=== PATIENT | male | born 1945 ===

== ENCOUNTER 2016-12-14 08:52 | Inpatient (IN) | payer MEDICARE ==
[2016-12-14] MEDS ORDERED: Morphine 4 MG/ML VIAL ONE ×2 (08:58→09:11)
[2016-12-14 09:02] VITALS: BMI 24.9
[2016-12-14] MEDS ORDERED: Iohexol 350mgl/ml 50 ML ONE (09:05)
[2016-12-14] MEDS ORDERED: Iodixanol 320 MG/ML 100 ML BOTTLE IV ONE ×3 (09:06→09:55)
[2016-12-14] MEDS ORDERED: Phenylephrine 10 mg/ml Inj ONE (09:07)
[2016-12-14] MEDS ORDERED: DOPamine 400mg/250ml D5W 0 MG/0 ML BAG IV ONE (09:07)
[2016-12-14] MEDS ORDERED: Nitroglycerin 50mg in D5W 0 MG/0 ML BOTTLE IV ONE (09:07)
--- NOTE | 2016-12-14 09:13 | C.PDOC ---
History Of Present Illness Patient BIBA for sudden onset of substernal chest pain that began at approx 8am. Patient given SL nitro, ASA 324mg in the field. As per prior records, he has h/o Vitiligo and hyperlipidemia. Time Seen by Provider: 12/14/16 09:11 Chief Complaint (Nursing): Chest Pain History Per: Patient, EMS History/Exam Limitations: clinical condition Onset/Duration Of Symptoms: Hrs Current Symptoms Are (Timing): Still Present Severity: Severe Quality: "Pain" Associated Symptoms: Nausea Past Medical History Reviewed: Historical Data, Nursing Documentation, Vital Signs Vital Signs: Last Vital Signs Temp 97.4 F L 12/14/16 08:55 Pulse 84 12/14/16 08:55 Resp 24 12/14/16 08:55 BP 142/88 12/14/16 08:55 Pulse Ox 99 12/14/16 09:13 - Medical History PMH: Hypercholesterolemia Family History: States: Other Other Family History: noncontributory - Social History Hx Alcohol Use: No Hx Substance Use: No - Immunization History Hx Tetanus Toxoid Vaccination: No Hx Influenza Vaccination: No Hx Pneumococcal Vaccination: No Review Of Systems Except As Marked, All Systems Reviewed And Found Negative. Cardiovascular: Positive for: Chest Pain. Negative for: Palpitations Respiratory: Negative for: Shortness of Breath Gastrointestinal: Positive for: Nausea. Negative for: Vomiting, Abdominal Pain Physical Exam - Physical Exam Appears: Non-toxic, In Acute Distress (in moderate to severe pain) Skin: Other (vitiligo ) Oral Mucosa: Moist Cardiovascular: Rhythm Regular Respiratory: Normal Breath Sounds, No Rales, No Rhonchi, No Wheezing Gastrointestinal/Abdominal: Normal Exam, Bowel Sounds, Soft, No Tenderness Extremity: Normal ROM, No Pedal Edema, No Calf Tenderness Pulses: Left Dorsalis Pedis: Normal, Right Dorsalis Pedis: Normal Neurological/Psych: Oriented x3 ED Course And Treatment ECG: Interpreted By Me, Viewed By Me (sinus rhythm 86 bpm, normal axis, ST elevations V2, V3, V4, reciprocal changes II, III, aVF) ECG Interpretation: Abnormal O2 Sat by Pulse Oximetry: 99 (RA) Pulse Ox Interpretation: Normal Progress Note: Code heart called on ED arrival, spoke with Dr. Willson who is in agreement. IV heparin 5000 units and Brilinta 180 mg given. Disposition - Disposition Disposition Time: 09:12 Condition: GUARDED - Clinical Impression Clinical Impression: STEMI (ST elevation myocardial infarction) Decision To Admit - Pt Status Changed To: Hospital Disposition Of: Inpatient - Admit Certification Admit to Inpatient:: After my assessment, the patient will require hospitalization for at least two midnights. This is because of the severity of symptoms shown, intensity of services needed, and/or the medical risk in this patient being treated as an outpatient. - InPatient: Physician Admission Certification: I certify that this patient requires 2 or more midnights of care for the following reason:: see notes - . Bed Request Type: ICU Admitting Physician: Gustavo Willson Patient Diagnosis: STEMI (ST elevation myocardial infarction)
[2016-12-14] MEDS ORDERED: Midazolam 2 MG/2 ML VIAL ONE (09:17)
[2016-12-14 09:20] LABS: BASO # 0.1 K/uL (0.0-0.2); BASO % 0.7 % (0.0-2.0); EOS # 0.5 K/uL (0.0-0.7); HEMATOCRIT 37.5 % (35.0-51.0); LYMPH % 25.8 % (20.0-40.0); MEAN CELL VOLUME 96.2 fL (80.0-94.0); MEAN CORPUSCULAR HEMOGLOBIN 32.6 pg (27.0-31.0); MEAN CORPUSCULAR HGB CONC 33.9 g/dL (33.0-37.0); MEAN PLATELET VOLUME 9.4 fL (7.2-11.7); MONO # 1.3 K/uL (0.0-0.8); MONO % 11.1 % (0.0-10.0); NRBC % 0.1 % (0.0-2.0); RED CELL DISTRIBUTION WIDTH 12.9 % (11.5-14.5); WHITE BLOOD COUNT 11.7 K/uL (4.8-10.8)
[2016-12-14] MEDS ORDERED: DiphenhydrAMINE 50 mg/ml Inj ONE (09:27)
[2016-12-14 09:35] LABS: INR 1.2
[2016-12-14 09:38] LABS: CHLORIDE 102 mmol/L (98-107)
[2016-12-14 09:39] LABS: POTASSIUM 2.7 mmol/L (3.6-5.2); SODIUM 135 mmol/L (132-148)
[2016-12-14 09:41] LABS: ALB/GLOB RATIO 1.2 (1.0-2.1); ALKALINE PHOSPHATASE 90 U/L (38-126); ALT/SGPT 26 U/L (21-72); AST/SGOT 50 U/L (17-59); BILIRUBIN,TOTAL 1.6 mg/dL (0.2-1.3); BLOOD UREA NITROGEN 16 mg/dL (9-20); CARBON DIOXIDE 19 mmol/L (22-30); GFR AFRICAN-AMERICAN > 60; TOTAL PROTEIN 7.3 g/dL (6.3-8.3)
[2016-12-14 09:42] LABS: CALCIUM 8.9 mg/dl (8.6-10.4); GLUCOSE,RANDOM 176 mg/dL (75-110)
--- NOTE | 2016-12-14 10:30 | CP.PCM.PN ---
Subjective - Date & Time of Evaluation Date of Evaluation: 12/14/16 Time of Evaluation: 10:26 - Subjective Subjective: 71 y/o no major PMHX: presents with acute CP and SOB with RBBB and agustin- lateral ST elevation. Urgent Cath: LM: NML LAD 100% proximal LCX: luminal irregularities RCA: non-obstructive, non-dominant LVEDP: 35mmHg EF: 35% with agustin-apical akinesia Treatment: Successful PCI with a MELL 3.0x12mm and post dilation with a 3.5x12mm balloon with pentecostalism of ANTWON 3 flow. mid and distal LAD was tortuous rapidly tapering and mild diffuse disease. Plan: ASA 81 Brillinta 90 BID Add Coreg 3.125 BID and titrate Crestor 20 HS Add EDUARDO-I or ARB when tolerated Add aldactone 12.5-25 when tolerated R. groin access was secured with angioseal. No complications; Resolution of ST changes noted and significant reduction of pain post procedure. Objective - Vital Signs/Intake and Output Vital Signs (last 24 hours): Temp Pulse Resp BP Pulse Ox 97.6 F 77 20 134/75 99 12/14/16 09:10 12/14/16 09:10 12/14/16 09:10 12/14/16 09:10 12/14/16 09:21 - Labs Labs: 12/14/16 09:14 12/14/16 09:14 PT 13.7 SECONDS (9.7-12.2) H 12/14/16 09:14 INR 1.2 12/14/16 09:14 APTT Cancelled 12/14/16 09:14
[2016-12-14] MEDS: Sodium Chloride 0.9% 500 ML IV SCH ×2 (11:03→18:07)
[2016-12-14] MEDS ORDERED: Potassium Chloride 20 mEq ER Tab PO ONE (13:00)
--- NOTE | 2016-12-14 14:27 | RAD ---
HISTORY: Chest pain. Portable study 09:15. COMPARISON: No prior. FINDINGS: LUNGS: No active pulmonary disease. PLEURA: No significant pleural effusion identified, no pneumothorax apparent. CARDIOVASCULAR: No radiographic findings to suggest acute or significant cardiovascular disease. OSSEOUS STRUCTURES: No significant abnormalities. VISUALIZED UPPER ABDOMEN: Normal. OTHER FINDINGS: None. IMPRESSION: No active disease. Concordant results with the preliminary interpretation rendered by the emergency department physician procedure.
--- NOTE | 2016-12-14 15:47 | CP.PCM.CON ---
<Richard Luke - Last Filed: 12/14/16 16:50> History of Present Illness - History of Present Illness History of Present Illness: ICU Consult note This is a 71 yo M with PMH significant for vitiligo and HLD that presented to the ED with chest pain that had been going on since that morning. Pt was given nitro and ASA in the field. He was found to have ST elevations in the anterolateral leads with reciprocal changes. He was given heparin bolus and brilinta in ED after code heart was called and taken to the cath lab tech. There was 100% occlusion of the proximal LAD with drug eluding stent placed (please see full cardio note). Pt tolerated the procedure well and was transferred to the ICU for further care. Pt states that the chest pain he had been experiencing is now gone. Pt has no current complaints. Denies MARION, fevers, chills, chest pain, sob, nausea or vomiting. PMH: as per HPI PSH: denies Home meds: ASA, statin, multivitamin Allergies: NKDA SH: denies Etoh or tob use Review of Systems - Review of Systems All systems: reviewed and no additional remarkable complaints except (where noted in HPI) Past Patient History - Past Medical History & Family History Past Medical History?: Yes - Past Social History Smoking Status: Never Smoked - CARDIAC Hx Hypercholesterolemia: Yes - PULMONARY Hx Respiratory Disorders: No - NEUROLOGICAL Hx Neurological Disorder: No - HEENT Hx HEENT Problems: No - RENAL Hx Chronic Kidney Disease: No - ENDOCRINE/METABOLIC Hx Endocrine Disorders: No - HEMATOLOGICAL/ONCOLOGICAL Hx Blood Disorders: No - INTEGUMENTARY Hx Dermatological Problems: Yes Other/Comment: PT HAS VITILIAGO - MUSCULOSKELETAL/RHEUMATOLOGICAL Hx Falls: No - GASTROINTESTINAL Hx Gastrointestinal Disorders: No - GENITOURINARY/GYNECOLOGICAL Hx Genitourinary Disorders: No - PSYCHIATRIC Hx Substance Use: No - SURGICAL HISTORY Hx Surgeries: No Other/Comment: endoscopy - ANESTHESIA Hx Anesthesia: Yes Hx Anesthesia Reactions: (UNKNOWN) Hx Malignant Hyperthermia: (UNKNOWN) Meds Allergies/Adverse Reactions: Allergies Allergy/AdvReac Type Severity Reaction Status Date / Time No Known Allergies Allergy Verified 12/14/16 15:01 - Medications Medications: Current Medications Aspirin (Ecotrin) 81 mg PO DAILY KATHARINA Carvedilol (Coreg) 3.125 mg PO BID KATHARINA Sodium Chloride (Sodium Chloride 0.9%) 500 mls @ 80 mls/hr IV .Q6H15M [facility] [place] Stop: 12/14/16 18:31 Last Admin: 12/14/16 11:03 Dose: 80 mls/hr Lisinopril (Zestril) 2.5 mg PO DAILY [facility] [place] Pneumococcal Polyvalent Vaccine (Pneumovax 23 Vaccine) 0.5 ml SC .ONCE ONE Stop: 12/16/16 10:01 Rosuvastatin Calcium (Crestor) 10 mg PO HS KATHARINA Spironolactone (Aldactone) 25 mg PO BID KATHARINA Ticagrelor (Brilinta) 90 mg PO BID KATHARINA Physical Exam - Constitutional Appears: Well, Non-toxic, No Acute Distress - Head Exam Head Exam: ATRAUMATIC, NORMOCEPHALIC - Eye Exam Eye Exam: Normal appearance Pupil Exam: PERRL - ENT Exam ENT Exam: Mucous Membranes Moist - Respiratory Exam Respiratory Exam: Clear to Auscultation Bilateral, NORMAL BREATHING PATTERN - Cardiovascular Exam Cardiovascular Exam: REGULAR RHYTHM, +S1, +S2 - GI/Abdominal Exam GI & Abdominal Exam: Normal Bowel Sounds, Soft - Extremities Exam Extremities exam: Positive for: normal capillary refill, normal inspection - Neurological Exam Neurological exam: Alert, Oriented x3 - Skin Skin Exam: Dry, Warm Results - Vital Signs Recent Vital Signs: Last Vital Signs Temp 98.0 F 12/14/16 13:30 Pulse 66 12/14/16 14:50 Resp 14 12/14/16 14:50 BP 105/68 12/14/16 14:44 Pulse Ox 98 12/14/16 14:50 - Labs Result Diagrams: 12/14/16 09:14 12/14/16 09:14 Labs: Laboratory Results - last 24 hr 12/14/16 12/14/16 12/14/16 09:14 09:14 09:14 WBC 11.7 H RBC 3.90 L Hgb 12.7 Hct 37.5 MCV 96.2 H MCH 32.6 H MCHC 33.9 RDW 12.9 Plt Count 187 MPV 9.4 Neut % (Auto) 58.4 Lymph % (Auto) 25.8 [place] % (Auto) 11.1 H Eos % (Auto) 4.0 Baso % (Auto) 0.7 Neut # 6.8 Lymph # 3.0 [place] # 1.3 H Eos # 0.5 Baso # 0.1 PT INR APTT Sodium 135 Potassium 2.7 L Chloride 102 Carbon Dioxide 19 L Anion Gap 17 BUN 16 Creatinine 0.8 Est GFR ( Amer) > 60 Est GFR (Non-Af Amer) > 60 Random Glucose 176 H Calcium 8.9 Total Bilirubin 1.6 H AST 50 ALT 26 Alkaline Phosphatase 90 Total Creatine Kinase CK-MB (Mass) Troponin I 0.0390 Troponin I, Quant Total Protein 7.3 Albumin 4.0 Globulin 3.3 Albumin/Globulin Ratio 1.2 Blood Type AB POSITIVE Antibody Screen Negative 12/14/16 12/14/16 12/14/16 09:14 11:48 13:14 WBC RBC Hgb Hct MCV MCH MCHC RDW Plt Count MPV Neut % (Auto) Lymph % (Auto) [place] % (Auto) Eos % (Auto) Baso % (Auto) Neut # Lymph # [place] # Eos # Baso # PT 13.7 H INR 1.2 APTT Cancelled 90 H Sodium Potassium Chloride Carbon Dioxide Anion Gap BUN Creatinine Est GFR ( Amer) Est GFR (Non-Af Amer) Random Glucose Calcium Total Bilirubin AST ALT Alkaline Phosphatase Total Creatine Kinase 165 CK-MB (Mass) 10.4 H Troponin I Troponin I, Quant 2.5200 H* Total Protein Albumin Globulin Albumin/Globulin Ratio Blood Type Antibody Screen Assessment & Plan - Assessment and Plan (Free Text) Assessment: This is a 71 M with acute, anterolateral STEMI s/p cardiac catheterization with drug-eluding stent placement. Plan: Neuro: AAOx3 Monitor Cardiovascular: Hemodynamically stable. Denies chest pain Cath showed 100% occlusion of LAD and low EF (35%) with agustin-apical akinesia Cardio following ASA 81 Brillinta 90 BID Add Coreg 3.125 BID and titrate Crestor 20 HS Add EDUARDO-I or ARB when tolerated Add aldactone 12.5-25 when tolerated Echo - f/u Serial ROMIs Pulmonary: Saturating well, no acute respiratory distress Gastrointestinal: No acute issues Heart healthy diet Hematology: Monitor H/H Cont brilinta and ASA Endocrine: No acute issues Renal: Monitor labs/electrolytes Strict I/O Infectious Disease: No leukocytosis, afebrile GI Prophylaxis: Not indicated at this time DVT Prophylaxis: Lovenox <Marvin Vicente - Last Filed: 12/14/16 17:22> Meds - Medications Medications: Current Medications Aspirin (Ecotrin) 81 mg PO DAILY [facility] [place] Carvedilol (Coreg) 3.125 mg PO BID [facility] [place] Enoxaparin Sodium (Lovenox) 40 mg SC DAILY [facility] [place] Sodium Chloride (Sodium Chloride 0.9%) 500 mls @ 80 mls/hr IV .Q6H15M [facility] [place] Stop: 12/14/16 18:31 Last Admin: 12/14/16 11:03 Dose: 80 mls/hr Lisinopril (Zestril) 2.5 mg PO DAILY [facility] [place] Pneumococcal Polyvalent Vaccine (Pneumovax 23 Vaccine) 0.5 ml SC .ONCE ONE Stop: 12/16/16 10:01 Rosuvastatin Calcium (Crestor) 10 mg PO HS [facility] [place] Spironolactone (Aldactone) 25 mg PO BID [facility] [place] Ticagrelor (Brilinta) 90 mg PO BID [facility] [place] Results - Vital Signs Recent Vital Signs: Last Vital Signs Temp 98.7 F 12/14/16 16:00 Pulse 74 12/14/16 16:00 Resp 18 12/14/16 16:00 BP 99/61 L 12/14/16 16:00 Pulse Ox 99 12/14/16 16:00 - Labs Result Diagrams: 12/14/16 09:14 12/14/16 09:14 Labs: Laboratory Results - last 24 hr 12/14/16 12/14/16 12/14/16 09:14 09:14 09:14 WBC 11.7 H RBC 3.90 L Hgb 12.7 Hct 37.5 MCV 96.2 H MCH 32.6 H MCHC 33.9 RDW 12.9 Plt Count 187 MPV 9.4 Neut % (Auto) 58.4 Lymph % (Auto) 25.8 [place] % (Auto) 11.1 H Eos % (Auto) 4.0 Baso % (Auto) 0.7 Neut # 6.8 Lymph # 3.0 [place] # 1.3 H Eos # 0.5 Baso # 0.1 PT INR APTT Sodium 135 Potassium 2.7 L Chloride 102 Carbon Dioxide 19 L Anion Gap 17 BUN 16 Creatinine 0.8 Est GFR ( Amer) > 60 Est GFR (Non-Af Amer) > 60 Random Glucose 176 H Calcium 8.9 Total Bilirubin 1.6 H AST 50 ALT 26 Alkaline Phosphatase 90 Total Creatine Kinase CK-MB (Mass) Troponin I 0.0390 Troponin I, Quant Total Protein 7.3 Albumin 4.0 Globulin 3.3 Albumin/Globulin Ratio 1.2 Blood Type AB POSITIVE Antibody Screen Negative 12/14/16 12/14/16 12/14/16 09:14 11:48 13:14 WBC RBC Hgb Hct MCV MCH MCHC RDW Plt Count MPV Neut % (Auto) Lymph % (Auto) [place] % (Auto) Eos % (Auto) Baso % (Auto) Neut # Lymph # [place] # Eos # Baso # PT 13.7 H INR 1.2 APTT Cancelled 90 H Sodium Potassium Chloride Carbon Dioxide Anion Gap BUN Creatinine Est GFR ( Amer) Est GFR (Non-Af Amer) Random Glucose Calcium Total Bilirubin AST ALT Alkaline Phosphatase Total Creatine Kinase 165 CK-MB (Mass) 10.4 H Troponin I Troponin I, Quant 2.5200 H* Total Protein Albumin Globulin Albumin/Globulin Ratio Blood Type Antibody Screen Attending/Attestation - Attestation I have personally seen and examined this patient.: Yes I have fully participated in the care of the patient.: Yes I have reviewed all pertinent clinical information: Yes Notes (Text): 12/14/16 17:21 I have seen and examined the patient. Medical records, lab studies, and imaging were reviewed by me and a management plan was formulated on multidisciplinary rounds with resident Dr. Luke. I agree with their above documented assessment and plan. Patient is currently clinically stable, monitoring in ICU post PCI. Started on beta harvinder, EDUARDO-I, Aldactone. Monitor for cardiac arrythmias with hemodynamic instability. Critical Care Time 35 minutes. Multi-disciplinary rounds were performed with house staff, nursing, speech therapy, respiratory therapy, pharmacy and nutrition with integrated input from the primary team/attending and other consulting services. The documented time is cumulative and includes review of patient data/exams/labs/chart review and examination of the patient on rounds and throughout the day; time is exclusive of any procedures or teaching time. 12/14/16 17:22
--- NOTE | 2016-12-14 18:25 | CP.PCM.HP ---
Past Patient History - Past Medical History & Family History Past Medical History?: Yes - Past Social History Smoking Status: Never Smoked - CARDIAC Hx Hypercholesterolemia: Yes - PULMONARY Hx Respiratory Disorders: No - NEUROLOGICAL Hx Neurological Disorder: No - HEENT Hx HEENT Problems: No - RENAL Hx Chronic Kidney Disease: No - ENDOCRINE/METABOLIC Hx Endocrine Disorders: No - HEMATOLOGICAL/ONCOLOGICAL Hx Blood Disorders: No - INTEGUMENTARY Hx Dermatological Problems: Yes Other/Comment: PT HAS VITILIAGO - MUSCULOSKELETAL/RHEUMATOLOGICAL Hx Falls: No - GASTROINTESTINAL Hx Gastrointestinal Disorders: No - GENITOURINARY/GYNECOLOGICAL Hx Genitourinary Disorders: No - PSYCHIATRIC Hx Substance Use: No - SURGICAL HISTORY Hx Surgeries: No Other/Comment: endoscopy - ANESTHESIA Hx Anesthesia: Yes Hx Anesthesia Reactions: (UNKNOWN) Hx Malignant Hyperthermia: (UNKNOWN) Meds Allergies/Adverse Reactions: Allergies Allergy/AdvReac Type Severity Reaction Status Date / Time No Known Allergies Allergy Verified 12/14/16 15:01 Physical Exam - Constitutional Appears: Well - Head Exam Head Exam: ATRAUMATIC, NORMAL INSPECTION, NORMOCEPHALIC - Eye Exam Eye Exam: EOMI, Normal appearance, PERRL Pupil Exam: NORMAL ACCOMODATION, PERRL - ENT Exam ENT Exam: Mucous Membranes Moist, Normal Exam - Neck Exam Neck exam: Positive for: Normal Inspection - Respiratory Exam Respiratory Exam: Decreased Breath Sounds - Cardiovascular Exam Cardiovascular Exam: REGULAR RHYTHM, +S1, +S2 - GI/Abdominal Exam GI & Abdominal Exam: Diminished Bowel Sounds, Soft - Rectal Exam Rectal Exam: Deferred Results - Vital Signs Recent Vital Signs: Last Vital Signs Temp 98.7 F 12/14/16 16:00 Pulse 74 12/14/16 16:00 Resp 18 12/14/16 16:00 BP 99/61 L 12/14/16 16:00 Pulse Ox 99 12/14/16 16:00 - Labs Result Diagrams: 12/14/16 09:14 12/14/16 09:14 Labs: Laboratory Results - last 24 hr 12/14/16 12/14/16 12/14/16 09:14 09:14 09:14 WBC 11.7 H RBC 3.90 L Hgb 12.7 Hct 37.5 MCV 96.2 H MCH 32.6 H MCHC 33.9 RDW 12.9 Plt Count 187 MPV 9.4 Neut % (Auto) 58.4 Lymph % (Auto) 25.8 [place] % (Auto) 11.1 H Eos % (Auto) 4.0 Baso % (Auto) 0.7 Neut # 6.8 Lymph # 3.0 Ashley # 1.3 H Eos # 0.5 Baso # 0.1 PT INR APTT Sodium 135 Potassium 2.7 L Chloride 102 Carbon Dioxide 19 L Anion Gap 17 BUN 16 Creatinine 0.8 Est GFR ( Amer) > 60 Est GFR (Non-Af Amer) > 60 Random Glucose 176 H Calcium 8.9 Total Bilirubin 1.6 H AST 50 ALT 26 Alkaline Phosphatase 90 Total Creatine Kinase CK-MB (Mass) Troponin I 0.0390 Troponin I, Quant Total Protein 7.3 Albumin 4.0 Globulin 3.3 Albumin/Globulin Ratio 1.2 Blood Type AB POSITIVE Antibody Screen Negative 12/14/16 12/14/16 12/14/16 09:14 11:48 13:14 WBC RBC Hgb Hct MCV MCH MCHC RDW Plt Count MPV Neut % (Auto) Lymph % (Auto) [place] % (Auto) Eos % (Auto) Baso % (Auto) Neut # Lymph # Ashley # Eos # Baso # PT 13.7 H INR 1.2 APTT Cancelled 90 H Sodium Potassium Chloride Carbon Dioxide Anion Gap BUN Creatinine Est GFR ( Amer) Est GFR (Non-Af Amer) Random Glucose Calcium Total Bilirubin AST ALT Alkaline Phosphatase Total Creatine Kinase 165 CK-MB (Mass) 10.4 H Troponin I Troponin I, Quant 2.5200 H* Total Protein Albumin Globulin Albumin/Globulin Ratio Blood Type Antibody Screen
--- NOTE | 2016-12-14 18:39 | CARD ---
APPROVED REPORT EXAM: Two-dimensional and M-mode echocardiogram with Doppler and color Doppler. Other Information Quality : FairRhythm : NSR INDICATION Acute MD Chest Pain S/P CODE HEART M-Mode DIMENSIONS RVDd1.03 (2.1-3.2cm)Left Atrium (MM)3.72 (2.5-4.0cm) IVSd1.18 (0.7-1.1cm)Aortic Root4.06 (2.2-3.7cm) LVDd5.16 (4.0-5.6cm)Aortic Cusp Exc.1.92 (1.5-2.0cm) PWd1.18 (0.7-1.1cm)FS (%) 29 % LVDs3.65 (2.0-3.8cm)LVEF (%)56 (>50%) Mitral Valve MV E Mtignqhe97.9cm/sMV A Dhikqwem53.5cm/sE/A ratio0.6 TDI E/Lateral E'0.0E/Medial E'0.0 Tricuspid Valve TR Peak Ivzvtlgh682lt/sTR Peak Gr.[id number] LEFT VENTRICLE There is normal left ventricular wall thickness. The left ventricular systolic function appears preserved. The left ventricular ejection fraction is within the normal range. Anteroapical hypokinesis suggestive of coronary heart disease. Transmitral Doppler flow pattern is Grade I-abnormal relaxation pattern. RIGHT VENTRICLE The right ventricle is normal size. The right ventricular systolic function is normal. ATRIA The left atrium size is normal. The right atrium size is normal. AORTIC VALVE The aortic valve is normal in structure. No aortic regurgitation is present. MITRAL VALVE The anterior mitral valve leaflet shows slight focal calcification. Mitral regurgitation is trace. TRICUSPID VALVE The tricuspid valve is normal in structure. There is mild tricuspid regurgitation. Right ventricular systolic pressure is estimated at 35 mmHg. PULMONIC VALVE The pulmonary valve is normal in structure. There is trace pulmonic valvular regurgitation. GREAT VESSELS The aortic root is borderline enlarged. The IVC is normal in size and collapses >50% with inspiration. PERICARDIAL EFFUSION There is no pericardial effusion. <Conclusion> Hypokinesis involving the anteroapical wall of the left ventricle suggestive of coronary heart disease. The left ventricular systolic function appears preserved. Transmitral Doppler flow pattern is Grade I-abnormal relaxation pattern. The right ventricular systolic function is normal. Trace mitral regurgitation. There is mild tricuspid regurgitation. Right ventricular systolic pressure is estimated - 35 mmHg. The aortic root is borderline enlarged. There is no pericardial effusion.
[2016-12-15 06:40] LABS: BASO % 0.5 % (0.0-2.0); EOS # 0.2 K/uL (0.0-0.7); EOS % 2.8 % (0.0-4.0); HEMATOCRIT 33.1 % (35.0-51.0); LYMPH # 0.9 K/uL (1.0-4.3); LYMPH % 14.6 % (20.0-40.0); MEAN CELL VOLUME 97.3 fL (80.0-94.0); MEAN CORPUSCULAR HEMOGLOBIN 32.9 pg (27.0-31.0); MEAN CORPUSCULAR HGB CONC 33.8 g/dL (33.0-37.0); MEAN PLATELET VOLUME 9.3 fL (7.2-11.7); MONO # 0.6 K/uL (0.0-0.8); MONO % 9.7 % (0.0-10.0); RED CELL DISTRIBUTION WIDTH 13.6 % (11.5-14.5); WHITE BLOOD COUNT 6.2 K/uL (4.8-10.8)
[2016-12-15 07:02] LABS: CHLORIDE 103 mmol/L (98-107)
[2016-12-15 07:03] LABS: POTASSIUM 3.6 mmol/L (3.6-5.2); SODIUM 136 mmol/L (132-148)
[2016-12-15 07:05] LABS: ALB/GLOB RATIO 1.1 (1.0-2.1); ALKALINE PHOSPHATASE 69 U/L (38-126); ALT/SGPT 32 U/L (21-72); AST/SGOT 76 U/L (17-59); BILIRUBIN,TOTAL 1.1 mg/dL (0.2-1.3); BLOOD UREA NITROGEN 14 mg/dL (9-20); CARBON DIOXIDE 26 mmol/L (22-30); GFR AFRICAN-AMERICAN > 60; GLUCOSE,RANDOM 142 mg/dL (75-110)
[2016-12-15 07:06] LABS: CALCIUM 7.9 mg/dl (8.6-10.4); MAGNESIUM 1.5 mg/dL (1.6-2.3)
--- NOTE | 2016-12-15 08:22 | CP.CCUPN ---
CCU Subjective - Physician Review Events Since Last Encounter (Free Text): 12/15/16 08:21 71-year-old male with history of hyperlipidemia, hypertension admitted to the hospital with acute ST elevation MO, underwent emergency PTCA, LAD 100% occlusion status post a stent. Patient is currently asymptomatic. No chest pain. Denies any nausea vomiting. Blood pressure is on the low side. No chest pain. Vital signs: Reviewed Chest good air entry bilaterally regular heart sound nontender abdomen no pedal edema [employer] alert awake oriented 3 no functional neurological deficit Labs reviewed Showing low potassium, low magnesium, low phosphorus, supplemented Mild elevation of the troponin noted CCU Objective - Vital Signs / Intake & Output Vital Signs (Last 4 hours): Vital Signs Temp Pulse Resp BP Pulse Ox 12/15/16 08:00 98.8 F 68 18 97 12/15/16 07:57 88 21 90/60 L 98 12/15/16 07:00 66 100 12/15/16 06:57 66 95/56 L 100 12/15/16 06:00 73 98 12/15/16 05:57 74 95/54 L 98 12/15/16 05:00 86 98 12/15/16 04:58 89 109/67 99 Vital signs reviewed No neck vein distention noted Chest good air entry bilaterally, no wheezing or rales noted CVS regular heart sound, no murmur noted Abdomen soft, nontender. Extremities no pedal edema [employer] alert awake oriented 3, no functional neurological deficit Intake and Output (Last 8hrs): Intake & Output 12/14/16 12/15/16 12/15/16 22:59 06:59 14:59 Intake Total 1060 580 100 Output Total 750 500 Balance 310 80 100 Intake: Intake, IV Amount 720 480 0 Left Hand 720 480 0 Right Hand 0 0 Oral 340 100 100 Output: Urine 750 500 Urine, Voided 750 500 Other: # Voids Urine, Voided 1 0 0 # Bowel Movements 0 0 0 - Medications Active Medications: Active Medications Generic Name Dose Route Start Last Admin Trade Name Freq PRN Reason Stop Dose Admin Aspirin 81 mg 12/15/16 10:00 Ecotrin PO DAILY [facility] Carvedilol 3.125 mg 12/14/16 18:00 12/14/16 18:06 Coreg PO 3.125 mg BID KATHARINA Administration Enoxaparin Sodium 40 mg 12/15/16 10:00 Lovenox SC DAILY KATHARINA Magnesium Sulfate/Dextrose 1 gm in 100 mls @ 300 mls/hr 12/15/16 08:30 Magnesium Sulfate 1 Gm/100 Ml D5w IVPB 12/15/16 09:19 Q30M KATHARINA Potassium Phosphate 15 mmole/ 255 mls @ 42.5 mls/hr 12/15/16 08:19 Sodium Chloride IVPB 12/15/16 14:18 ONCE ONE Lisinopril 2.5 mg 12/15/16 10:00 Zestril PO DAILY [facility] Pneumococcal Polyvalent Vaccine 0.5 ml 12/16/16 10:00 Pneumovax 23 Vaccine SC 12/16/16 10:01 .ONCE ONE Rosuvastatin Calcium 10 mg 12/14/16 22:00 12/14/16 22:46 Crestor PO 10 mg HS KATHARINA Administration Spironolactone 25 mg 12/14/16 18:00 12/14/16 18:06 Aldactone PO 25 mg BID KATHARINA Administration Ticagrelor 90 mg 12/15/16 10:00 Brilinta PO BID KATHARINA - Patient Studies Lab Studies: Lab Studies 12/15/16 12/15/16 12/14/16 Range/Units 06:33 06:33 18:47 WBC 6.2 (4.8-10.8) K/uL RBC 3.40 L (4.40-5.90) Mil/uL Hgb 11.2 L (12.0-18.0) g/dL Hct 33.1 L (35.0-51.0) % MCV 97.3 H (80.0-94.0) fL MCH 32.9 H (27.0-31.0) pg MCHC 33.8 (33.0-37.0) g/dL RDW 13.6 (11.5-14.5) % Plt Count 146 (130-400) K/uL MPV 9.3 (7.2-11.7) fL Neut % (Auto) 72.4 (50.0-75.0) % Lymph % (Auto) 14.6 L (20.0-40.0) % Porter % (Auto) 9.7 (0.0-10.0) % Eos % (Auto) 2.8 (0.0-4.0) % Baso % (Auto) 0.5 (0.0-2.0) % Neut # 4.5 (1.8-7.0) K/uL Lymph # 0.9 L (1.0-4.3) K/uL Porter # 0.6 (0.0-0.8) K/uL Eos # 0.2 (0.0-0.7) K/uL Baso # 0.0 (0.0-0.2) K/uL PT (9.7-12.2) SECONDS INR APTT Sodium 136 (132-148) mmol/L Potassium 3.6 (3.6-5.2) mmol/L Chloride 103 (98-107) mmol/L Carbon Dioxide 26 (22-30) mmol/L Anion Gap 12 (10-20) BUN 14 (9-20) mg/dL Creatinine 0.7 L (0.8-1.5) MG/DL Est GFR ( Amer) > 60 Est GFR (Non-Af Amer) > 60 Random Glucose 142 H (75-110) mg/dL Calcium 7.9 L (8.6-10.4) mg/dl Phosphorus 2.0 L (2.5-4.5) mg/dL Magnesium 1.5 L (1.6-2.3) mg/dL Total Bilirubin 1.1 (0.2-1.3) mg/dL AST 76 H D (17-59) U/L ALT 32 (21-72) U/L Alkaline Phosphatase 69 (38-126) U/L Total Creatine Kinase 368 H 376 H (55-170) U/L CK-MB (Mass) 19.4 H 28.2 H (0.0-3.38) ng/mL Troponin I (0.00-0.120) ng/mL Troponin I, Quant 6.8600 H* 14.5000 H* (0.00-0.120) ng/mL Total Protein 6.0 L (6.3-8.3) g/dL Albumin 3.2 L (3.5-5.0) g/dL Globulin 2.8 (2.2-3.9) gm/dL Albumin/Globulin Ratio 1.1 (1.0-2.1) Blood Type Antibody Screen 12/14/16 12/14/16 12/14/16 Range/Units 13:14 11:48 09:14 WBC (4.8-10.8) K/uL RBC (4.40-5.90) Mil/uL Hgb (12.0-18.0) g/dL Hct (35.0-51.0) % MCV (80.0-94.0) fL MCH (27.0-31.0) pg MCHC (33.0-37.0) g/dL RDW (11.5-14.5) % Plt Count (130-400) K/uL MPV (7.2-11.7) fL Neut % (Auto) (50.0-75.0) % Lymph % (Auto) (20.0-40.0) % Porter % (Auto) (0.0-10.0) % Eos % (Auto) (0.0-4.0) % Baso % (Auto) (0.0-2.0) % Neut # (1.8-7.0) K/uL Lymph # (1.0-4.3) K/uL Porter # (0.0-0.8) K/uL Eos # (0.0-0.7) K/uL Baso # (0.0-0.2) K/uL PT 13.7 H (9.7-12.2) SECONDS INR 1.2 APTT 90 H Cancelled Sodium (132-148) mmol/L Potassium (3.6-5.2) mmol/L Chloride (98-107) mmol/L Carbon Dioxide (22-30) mmol/L Anion Gap (10-20) BUN (9-20) mg/dL Creatinine (0.8-1.5) MG/DL Est GFR ( Amer) Est GFR (Non-Af Amer) Random Glucose (75-110) mg/dL Calcium (8.6-10.4) mg/dl Phosphorus (2.5-4.5) mg/dL Magnesium (1.6-2.3) mg/dL Total Bilirubin (0.2-1.3) mg/dL AST (17-59) U/L ALT (21-72) U/L Alkaline Phosphatase (38-126) U/L Total Creatine Kinase 165 (55-170) U/L CK-MB (Mass) 10.4 H (0.0-3.38) ng/mL Troponin I (0.00-0.120) ng/mL Troponin I, Quant 2.5200 H* (0.00-0.120) ng/mL Total Protein (6.3-8.3) g/dL Albumin (3.5-5.0) g/dL Globulin (2.2-3.9) gm/dL Albumin/Globulin Ratio (1.0-2.1) Blood Type Antibody Screen 12/14/16 12/14/16 12/14/16 Range/Units 09:14 09:14 09:14 WBC 11.7 H (4.8-10.8) K/uL RBC 3.90 L (4.40-5.90) Mil/uL Hgb 12.7 (12.0-18.0) g/dL Hct 37.5 (35.0-51.0) % MCV 96.2 H (80.0-94.0) fL MCH 32.6 H (27.0-31.0) pg MCHC 33.9 (33.0-37.0) g/dL RDW 12.9 (11.5-14.5) % Plt Count 187 (130-400) K/uL MPV 9.4 (7.2-11.7) fL Neut % (Auto) 58.4 (50.0-75.0) % Lymph % (Auto) 25.8 (20.0-40.0) % Porter % (Auto) 11.1 H (0.0-10.0) % Eos % (Auto) 4.0 (0.0-4.0) % Baso % (Auto) 0.7 (0.0-2.0) % Neut # 6.8 (1.8-7.0) K/uL Lymph # 3.0 (1.0-4.3) K/uL Porter # 1.3 H (0.0-0.8) K/uL Eos # 0.5 (0.0-0.7) K/uL Baso # 0.1 (0.0-0.2) K/uL PT (9.7-12.2) SECONDS INR APTT Sodium 135 (132-148) mmol/L Potassium 2.7 L (3.6-5.2) mmol/L Chloride 102 (98-107) mmol/L Carbon Dioxide 19 L (22-30) mmol/L Anion Gap 17 (10-20) BUN 16 (9-20) mg/dL Creatinine 0.8 (0.8-1.5) MG/DL Est GFR ( Amer) > 60 Est GFR (Non-Af Amer) > 60 Random Glucose 176 H (75-110) mg/dL Calcium 8.9 (8.6-10.4) mg/dl Phosphorus (2.5-4.5) mg/dL Magnesium (1.6-2.3) mg/dL Total Bilirubin 1.6 H (0.2-1.3) mg/dL AST 50 (17-59) U/L ALT 26 (21-72) U/L Alkaline Phosphatase 90 (38-126) U/L Total Creatine Kinase (55-170) U/L CK-MB (Mass) (0.0-3.38) ng/mL Troponin I 0.0390 (0.00-0.120) ng/mL Troponin I, Quant (0.00-0.120) ng/mL Total Protein 7.3 (6.3-8.3) g/dL Albumin 4.0 (3.5-5.0) g/dL Globulin 3.3 (2.2-3.9) gm/dL Albumin/Globulin Ratio 1.2 (1.0-2.1) Blood Type AB POSITIVE Antibody Screen Negative Laboratory Results - last 24 hr 12/14/16 12/14/16 12/14/16 09:14 09:14 09:14 WBC 11.7 H RBC 3.90 L Hgb 12.7 Hct 37.5 MCV 96.2 H MCH 32.6 H MCHC 33.9 RDW 12.9 Plt Count 187 MPV 9.4 Neut % (Auto) 58.4 Lymph % (Auto) 25.8 Porter % (Auto) 11.1 H Eos % (Auto) 4.0 Baso % (Auto) 0.7 Neut # 6.8 Lymph # 3.0 Porter # 1.3 H Eos # 0.5 Baso # 0.1 PT INR APTT Sodium 135 Potassium 2.7 L Chloride 102 Carbon Dioxide 19 L Anion Gap 17 BUN 16 Creatinine 0.8 Est GFR ( Amer) > 60 Est GFR (Non-Af Amer) > 60 Random Glucose 176 H Calcium 8.9 Phosphorus Magnesium Total Bilirubin 1.6 H AST 50 ALT 26 Alkaline Phosphatase 90 Total Creatine Kinase CK-MB (Mass) Troponin I 0.0390 Troponin I, Quant Total Protein 7.3 Albumin 4.0 Globulin 3.3 Albumin/Globulin Ratio 1.2 Blood Type AB POSITIVE Antibody Screen Negative 12/14/16 12/14/16 12/14/16 09:14 11:48 13:14 WBC RBC Hgb Hct MCV MCH MCHC RDW Plt Count MPV Neut % (Auto) Lymph % (Auto) Porter % (Auto) Eos % (Auto) Baso % (Auto) Neut # Lymph # Porter # Eos # Baso # PT 13.7 H INR 1.2 APTT Cancelled 90 H Sodium Potassium Chloride Carbon Dioxide Anion Gap BUN Creatinine Est GFR ( Amer) Est GFR (Non-Af Amer) Random Glucose Calcium Phosphorus Magnesium Total Bilirubin AST ALT Alkaline Phosphatase Total Creatine Kinase 165 CK-MB (Mass) 10.4 H Troponin I Troponin I, Quant 2.5200 H* Total Protein Albumin Globulin Albumin/Globulin Ratio Blood Type Antibody Screen 12/14/16 12/15/16 12/15/16 18:47 06:33 06:33 WBC 6.2 RBC 3.40 L Hgb 11.2 L Hct 33.1 L MCV 97.3 H MCH 32.9 H MCHC 33.8 RDW 13.6 Plt Count 146 MPV 9.3 Neut % (Auto) 72.4 Lymph % (Auto) 14.6 L Porter % (Auto) 9.7 Eos % (Auto) 2.8 Baso % (Auto) 0.5 Neut # 4.5 Lymph # 0.9 L Porter # 0.6 Eos # 0.2 Baso # 0.0 PT INR APTT Sodium 136 Potassium 3.6 Chloride 103 Carbon Dioxide 26 Anion Gap 12 BUN 14 Creatinine 0.7 L Est GFR ( Amer) > 60 Est GFR (Non-Af Amer) > 60 Random Glucose 142 H Calcium 7.9 L Phosphorus 2.0 L Magnesium 1.5 L Total Bilirubin 1.1 AST 76 H D ALT 32 Alkaline Phosphatase 69 Total Creatine Kinase 376 H 368 H CK-MB (Mass) 28.2 H 19.4 H Troponin I Troponin I, Quant 14.5000 H* 6.8600 H* Total Protein 6.0 L Albumin 3.2 L Globulin 2.8 Albumin/Globulin Ratio 1.1 Blood Type Antibody Screen EKG/Cardiology Studies: Cardiology / EKG Studies 12/14/16 10:45 EKG [ELECTROCARDIOGRAM] Stat Comment: Mode Of Transportation: PORTABLE Reason For Exam: code heart 12/14/16 18:35 EKG [ELECTROCARDIOGRAM] Routine Comment: Mode Of Transportation: PORTABLE Reason For Exam: code heart 12/15/16 04:00 EKG [ELECTROCARDIOGRAM] Stat Comment: Mode Of Transportation: PORTABLE Reason For Exam: code heart Critical Care Progress Note - Nutrition Nutrition: Nutrition Category Date Time Status Heart Healthy Diet [DIET] Diets 12/14/16 Dinner Active Assessment/Plan (1) STEMI (ST elevation myocardial infarction) Assessment and plan: Patient with acute ST elevation MO. Status post a stent. Currently recovering. Asymptomatic now. Continue antiplatelets, beta harvinder, EDUARDO inhibitor. Patient is also on anticholesterol medication. Supplement electrolytes. Out of bed to chair. Will follow the patient Current Visit: Yes Status: Acute (2) Hyperlipidemia Current Visit: Yes Status: Acute
[2016-12-15] MEDS: Magnesium Sulfate 1 gm in D5W 1 GM/100 ML BAG IVPB SCH ×2 (08:50→08:51)
[2016-12-15] MEDS ORDERED: Sodium Phosphate 15 MMOLE in Sodium Chloride 0.9% 250 ML IVPB ONE (09:00)
[2016-12-15] MEDS: Enoxaparin 40 mg Syringe SC SCH (10:34)
--- NOTE | 2016-12-15 13:39 | CP.PCM.PN ---
Subjective - Date & Time of Evaluation Date of Evaluation: 12/15/16 Time of Evaluation: 13:00 - Subjective Subjective: clinically same Objective - Vital Signs/Intake and Output Vital Signs (last 24 hours): Temp Pulse Resp BP Pulse Ox 98.9 F 68 17 93/49 L 95 12/15/16 12:00 12/15/16 13:00 12/15/16 13:00 12/15/16 12:57 12/15/16 13:00 Intake and Output: 12/15/16 12/15/16 06:59 18:59 Intake Total 1200 952.5 Output Total 750 500 Balance 450 452.5 - Medications Medications: Current Medications Aspirin (Ecotrin) 81 mg PO DAILY [facility] Last Admin: 12/15/16 10:34 Dose: 81 mg Carvedilol (Coreg) 3.125 mg PO BID [facility] Last Admin: 12/15/16 10:34 Dose: 3.125 mg Enoxaparin Sodium (Lovenox) 40 mg SC DAILY [facility] Last Admin: 12/15/16 10:34 Dose: 40 mg Sodium Phosphate 15 mmole/ (Sodium Chloride) 255 mls @ 42.5 mls/hr IVPB ONCE ONE Stop: 12/15/16 14:59 Last Admin: 12/15/16 09:02 Dose: 42.5 mls/hr Lisinopril (Zestril) 2.5 mg PO DAILY [facility] Last Admin: 12/15/16 10:34 Dose: 2.5 mg Pneumococcal Polyvalent Vaccine (Pneumovax 23 Vaccine) 0.5 ml SC .ONCE ONE Stop: 12/16/16 10:01 Rosuvastatin Calcium (Crestor) 10 mg PO HS [facility] Last Admin: 12/14/16 22:46 Dose: 10 mg Spironolactone (Aldactone) 25 mg PO BID [facility] Last Admin: 12/15/16 10:34 Dose: 25 mg Ticagrelor (Brilinta) 90 mg PO BID [facility] Last Admin: 12/15/16 10:34 Dose: 90 mg - Labs Labs: 12/15/16 06:33 12/15/16 06:33 PT 13.7 SECONDS (9.7-12.2) H 12/14/16 09:14 INR 1.2 12/14/16 09:14 APTT 90 SECONDS (21-34) H 12/14/16 13:14 - Constitutional Appears: Well - Head Exam Head Exam: ATRAUMATIC, NORMAL INSPECTION, NORMOCEPHALIC - Eye Exam Eye Exam: EOMI, Normal appearance, PERRL Pupil Exam: NORMAL ACCOMODATION, PERRL - ENT Exam ENT Exam: Mucous Membranes Moist, Normal Exam - Neck Exam Neck Exam: Full ROM, Normal Inspection. absent: Lymphadenopathy - Respiratory Exam Respiratory Exam: Decreased Breath Sounds - Cardiovascular Exam Cardiovascular Exam: REGULAR RHYTHM, +S1, +S2 - GI/Abdominal Exam GI & Abdominal Exam: Soft, Diminished Bowel Sounds - Rectal Exam Rectal Exam: Deferred
--- NOTE | 2016-12-15 17:50 | CARD ---
APPROVED REPORT EKG Measurement Heart [id number] <Conclusion> Normal sinus rhythm Right bundle branch block Abnormal ECG
--- NOTE | 2016-12-15 20:41 | CP.PCM.PN ---
Subjective - Date & Time of Evaluation Date of Evaluation: 12/15/16 Time of Evaluation: 20:38 - Subjective Subjective: Post [place]. No acute events. Denies angina or CHF. Objective - Vital Signs/Intake and Output Vital Signs (last 24 hours): Temp Pulse Resp BP Pulse Ox 98.3 F 66 22 100/56 L 98 12/15/16 20:00 12/15/16 20:00 12/15/16 20:00 12/15/16 19:57 12/15/16 20:00 Intake and Output: 12/15/16 12/16/16 18:59 06:59 Intake Total 1365.0 100 Output Total 750 Balance 615.0 100 - Medications Medications: Current Medications Aspirin (Ecotrin) 81 mg PO DAILY [facility] Last Admin: 12/15/16 10:34 Dose: 81 mg Carvedilol (Coreg) 3.125 mg PO BID [facility] Last Admin: 12/15/16 17:40 Dose: 3.125 mg Enoxaparin Sodium (Lovenox) 40 mg SC DAILY [facility] Last Admin: 12/15/16 10:34 Dose: 40 mg Lisinopril (Zestril) 2.5 mg PO DAILY [facility] Last Admin: 12/15/16 10:34 Dose: 2.5 mg Pneumococcal Polyvalent Vaccine (Pneumovax 23 Vaccine) 0.5 ml SC .ONCE ONE Stop: 12/16/16 10:01 Rosuvastatin Calcium (Crestor) 10 mg PO HS [facility] Last Admin: 12/14/16 22:46 Dose: 10 mg Spironolactone (Aldactone) 25 mg PO BID [facility] Last Admin: 12/15/16 17:40 Dose: 25 mg Ticagrelor (Brilinta) 90 mg PO BID [facility] Last Admin: 12/15/16 17:40 Dose: 90 mg - Labs Labs: 12/15/16 06:33 12/15/16 06:33 PT 13.7 SECONDS (9.7-12.2) H 12/14/16 09:14 INR 1.2 12/14/16 09:14 APTT 90 SECONDS (21-34) H 12/14/16 13:14 - Constitutional Appears: Well, Non-toxic - Eye Exam Eye Exam: PERRL. absent: Scleral icterus - Respiratory Exam Respiratory Exam: Clear to Ausculation Bilateral, NORMAL BREATHING PATTERN - Cardiovascular Exam Cardiovascular Exam: REGULAR RHYTHM, RRR, +S1, +S2. absent: JVD - GI/Abdominal Exam GI & Abdominal Exam: Normal Bowel Sounds. absent: Organomegaly - Extremities Exam Additional comments: +Right lower extremity varicose veins Assessment and Plan - Assessment and Plan (Free Text) Assessment: Telemetry tracing is viewed by myself: NSVT, now NSR 2D echo images viewed by me 71 year old man STEMI s/p PCI to LAD, now chest pain free High dose statin and dual anti platelet therapy Anterior wall infarction continue Aldactone, EDUARDO and coreg Bed rest today, out of bed to chair in the AM. I would increase Crestor 20mg po daily.
[2016-12-16 05:56] LABS: EOS # 0.3 K/uL (0.0-0.7); RED CELL DISTRIBUTION WIDTH 13.3 % (11.5-14.5)
[2016-12-16 06:04] LABS: BASO % 0.5 % (0.0-2.0); EOS % 4.2 % (0.0-4.0); HEMATOCRIT 35.1 % (35.0-51.0); LYMPH # 1.3 K/uL (1.0-4.3); LYMPH % 19.1 % (20.0-40.0); MEAN CELL VOLUME 97.1 fL (80.0-94.0); MEAN CORPUSCULAR HEMOGLOBIN 32.8 pg (27.0-31.0); MEAN CORPUSCULAR HGB CONC 33.8 g/dL (33.0-37.0); MEAN PLATELET VOLUME 9.7 fL (7.2-11.7); MONO # 0.8 K/uL (0.0-0.8); NRBC % 0.1 % (0.0-2.0); WHITE BLOOD COUNT 6.8 K/uL (4.8-10.8)
[2016-12-16 06:25] LABS: CHLORIDE 99 mmol/L (98-107); SODIUM 134 mmol/L (132-148)
[2016-12-16 06:26] LABS: POTASSIUM 3.5 mmol/L (3.6-5.2)
[2016-12-16 06:27] LABS: GFR AFRICAN-AMERICAN > 60
[2016-12-16 06:28] LABS: ALB/GLOB RATIO 1.1 (1.0-2.1); ALKALINE PHOSPHATASE 68 U/L (38-126); ALT/SGPT 29 U/L (21-72); AST/SGOT 60 U/L (17-59); BILIRUBIN,TOTAL 1.4 mg/dL (0.2-1.3); BLOOD UREA NITROGEN 14 mg/dL (9-20); CARBON DIOXIDE 25 mmol/L (22-30); GLUCOSE,RANDOM 93 mg/dL (75-110); PHOSPHOROUS 2.5 mg/dL (2.5-4.5); TOTAL PROTEIN 6.5 g/dL (6.3-8.3)
[2016-12-16 06:29] LABS: MAGNESIUM 1.7 mg/dL (1.6-2.3)
[2016-12-16 07:08] VITALS: O2SAT 97
[2016-12-16] MEDS ORDERED: Potassium Chloride 20 mEq/15 ml LIQ UD PO ONE ×2 (08:09→09:00)
[2016-12-16] MEDS: Enoxaparin 40 mg Syringe SC SCH (09:18)
[2016-12-16] MEDS ORDERED: Pneumococcal 23-Valent Vaccine SC ONE (10:00)
--- NOTE | 2016-12-16 15:03 | CP.PCM.PN ---
Subjective - Date & Time of Evaluation Date of Evaluation: 12/16/16 Time of Evaluation: 15:03 - Subjective Subjective: Events reviewed. Denies unstable angina or CHF. Objective - Vital Signs/Intake and Output Vital Signs (last 24 hours): Temp Pulse Resp BP Pulse Ox 98.8 F 86 18 143/81 97 12/16/16 14:35 12/16/16 14:35 12/16/16 14:35 12/16/16 14:35 12/16/16 14:35 Intake and Output: 12/16/16 12/16/16 06:59 18:59 Intake Total 100 350 Output Total 400 300 Balance -300 50 - Medications Medications: Current Medications Aspirin (Ecotrin) 81 mg PO DAILY [facility] Last Admin: 12/16/16 09:16 Dose: 81 mg Carvedilol (Coreg) 3.125 mg PO BID [facility] Last Admin: 12/16/16 09:16 Dose: 3.125 mg Enoxaparin Sodium (Lovenox) 40 mg SC DAILY [facility] Last Admin: 12/16/16 09:18 Dose: 40 mg Lisinopril (Zestril) 2.5 mg PO DAILY [facility] Last Admin: 12/16/16 09:16 Dose: 2.5 mg Rosuvastatin Calcium (Crestor) 10 mg PO HS [facility] Last Admin: 12/15/16 21:05 Dose: 10 mg Spironolactone (Aldactone) 25 mg PO BID [facility] Last Admin: 12/16/16 09:16 Dose: 25 mg Ticagrelor (Brilinta) 90 mg PO BID [facility] Last Admin: 12/16/16 09:16 Dose: 90 mg - Labs Labs: 12/16/16 05:49 12/16/16 05:49 PT 13.7 SECONDS (9.7-12.2) H 12/14/16 09:14 INR 1.2 12/14/16 09:14 APTT 90 SECONDS (21-34) H 12/14/16 13:14 - Constitutional Appears: Well, Non-toxic - Head Exam Head Exam: ATRAUMATIC, NORMAL INSPECTION - Respiratory Exam Respiratory Exam: Clear to Ausculation Bilateral, NORMAL BREATHING PATTERN - Cardiovascular Exam Cardiovascular Exam: REGULAR RHYTHM, RRR, +S1. absent: JVD Additional comments: Varicose veins - GI/Abdominal Exam GI & Abdominal Exam: Normal Bowel Sounds. absent: Organomegaly Assessment and Plan - Assessment and Plan (Free Text) Assessment: Telemetry tracing is viewed by myself: NSR > 24 hours 2D echo images viewed by me: Apical, apical anterior apical anterior lateral infarction. EF 40-45% 71 year old man STEMI s/p PCI to LAD, now chest pain free High dose statin and dual anti platelet therapy Ischemic cardiomyopathy continue Aldactone, EDUARDO, increase coreg 6.25mg po BID Out of bed to chair, ambulate. I would increase Crestor 20mg po daily. He can be d/c home first thing in the morning if there is no more evidence of sudden or unstable angina.
[2016-12-16 16:22] VITALS: RESP 20
--- NOTE | 2016-12-16 18:57 | CP.PCM.PN ---
Subjective - Date & Time of Evaluation Date of Evaluation: 12/16/16 Time of Evaluation: 08:00 Objective - Vital Signs/Intake and Output Vital Signs (last 24 hours): Temp Pulse Resp BP Pulse Ox 98.8 F 74 20 136/78 97 12/16/16 16:08 12/16/16 18:40 12/16/16 16:08 12/16/16 16:08 12/16/16 16:08 Intake and Output: 12/16/16 12/16/16 06:59 18:59 Intake Total 100 350 Output Total 400 300 Balance -300 50 - Medications Medications: Current Medications Aspirin (Ecotrin) 81 mg PO DAILY [facility] Last Admin: 12/16/16 09:16 Dose: 81 mg Carvedilol (Coreg) 6.25 mg PO BID [facility] Last Admin: 12/16/16 17:50 Dose: 6.25 mg Enoxaparin Sodium (Lovenox) 40 mg SC DAILY [facility] Last Admin: 12/16/16 09:18 Dose: 40 mg Lisinopril (Zestril) 2.5 mg PO DAILY [facility] Last Admin: 12/16/16 09:16 Dose: 2.5 mg Rosuvastatin Calcium (Crestor) 10 mg PO HS [facility] Last Admin: 12/15/16 21:05 Dose: 10 mg Spironolactone (Aldactone) 25 mg PO BID [facility] Last Admin: 12/16/16 17:50 Dose: 25 mg Ticagrelor (Brilinta) 90 mg PO BID [facility] Last Admin: 12/16/16 09:16 Dose: 90 mg - Labs Labs: 12/16/16 05:49 12/16/16 05:49 PT 13.7 SECONDS (9.7-12.2) H 12/14/16 09:14 INR 1.2 12/14/16 09:14 APTT 90 SECONDS (21-34) H 12/14/16 13:14 Assessment and Plan - Assessment and Plan (Free Text) Plan: pci to lad contis mignon asp on bblcoker nad jose inhibitor and also on crestor to be raised to 20mg po daily jennifer as ordered
[2016-12-16] MEDS ORDERED: Potassium Chloride 10 mEq ER Tab PO STA (19:00)
--- NOTE | 2016-12-17 10:14 | CP.PCM.PN ---
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 ST elevation has resolved. He remains without any chest pain, sob or signs of volume overload. Normal appetite and normal tolerance with PT. Objective - Vital Signs/Intake and Output Vital Signs (last 24 hours): Temp Pulse Resp BP Pulse Ox 98.2 F 71 20 99/56 L 97 12/16/16 23:45 12/17/16 03:30 12/16/16 23:45 12/16/16 23:45 12/16/16 23:45 - Medications Medications: Current Medications Aspirin (Ecotrin) 81 mg PO DAILY [facility] Last Admin: 12/16/16 09:16 Dose: 81 mg Carvedilol (Coreg) 6.25 mg PO BID [facility] Last Admin: 12/16/16 17:50 Dose: 6.25 mg Enoxaparin Sodium (Lovenox) 40 mg SC DAILY [facility] Last Admin: 12/16/16 09:18 Dose: 40 mg Lisinopril (Zestril) 2.5 mg PO DAILY [facility] Last Admin: 12/16/16 09:16 Dose: 2.5 mg Rosuvastatin Calcium (Crestor) 10 mg PO HS [facility] Last Admin: 12/16/16 21:07 Dose: 10 mg Spironolactone (Aldactone) 25 mg PO BID [facility] Last Admin: 12/16/16 17:50 Dose: 25 mg Ticagrelor (Brilinta) 90 mg PO BID [facility] Last Admin: 12/16/16 19:15 Dose: 90 mg - Labs Labs: 12/16/16 05:49 12/16/16 05:49 PT 13.7 SECONDS (9.7-12.2) H 12/14/16 09:14 INR 1.2 12/14/16 09:14 APTT 90 SECONDS (21-34) H 12/14/16 13:14 - Constitutional Appears: No Acute Distress, Other (Vitiligo) - Head Exam Head Exam: ATRAUMATIC, NORMAL INSPECTION, NORMOCEPHALIC - Eye Exam Eye Exam: EOMI, Normal appearance, PERRL - ENT Exam ENT Exam: Mucous Membranes Moist, Normal Oropharynx - Neck Exam Neck Exam: Full ROM, Normal Inspection - Respiratory Exam Respiratory Exam: Clear to Ausculation Bilateral, NORMAL BREATHING PATTERN. absent: Rales, Rhonchi, Wheezes - Cardiovascular Exam Cardiovascular Exam: REGULAR RHYTHM, +S1, +S2. absent: Gallop, +S4, Murmur - GI/Abdominal Exam GI & Abdominal Exam: Soft, Normal Bowel Sounds - Extremities Exam Extremities Exam: Full ROM, Normal Inspection. absent: Pedal Edema, Tenderness - Neurological Exam Neurological Exam: Alert, Awake, Oriented x3 Neuro motor strength exam: Left Upper Extremity: 5, Right Upper Extremity: 5, Left Lower Extremity: 5, Right Lower Extremity: 5 - Psychiatric Exam Psychiatric exam: Normal Affect, Normal Mood - Skin Skin Exam: Normal Color, Warm Assessment and Plan - Assessment and Plan (Free Text) Assessment: Acute anterior STEMI Rx with MELL to LAD on 12/14/16 AM Echo shows mid to distal septal akinesia with EF in range of 40-45% EKG: resolved EDITA, septal infarct Tolerating: ASA/Brillinta/Coreg/aldactone/Zestril/Crestor BP and HR: Normal range Creat/K+ WNL Trop: 2.5 > 14 > 6.8 Discussed at length with patient and son regards to medication use and compliance. Discussed R&B of DAPT and need to continue both for minimum of 3 years if tolerated. Ok to d/c with f/u with me as outpatient.
[2016-12-17] MEDS: Enoxaparin 40 mg Syringe SC SCH (10:27)
--- NOTE | 2016-12-17 13:10 | CARD ---
APPROVED REPORT EKG Measurement Heart [id number] CT 142P32 [id number] <Conclusion> Normal sinus rhythm Low voltage QRS Right bundle branch block Abnormal ECG
--- NOTE | 2016-12-17 13:20 | CARD ---
APPROVED REPORT EKG Measurement Heart [id number] <Conclusion> Sinus rhythm with frequent and consecutive premature ventricular complexes Right bundle branch block Septal infarct, age undetermined Abnormal ECG
--- NOTE | 2016-12-17 15:42 | CP.PCM.PN ---
Subjective - Date & Time of Evaluation Date of Evaluation: 12/17/16 Time of Evaluation: 15:37 - Subjective Subjective: 71 Y/O MALE SEEN AND EXAMINED ADMITTED FOR ACUTE ANTERIOR STEMI WITH RBBB, MELL TO LAD (12/14) REMAIN CHEST PAIN FREE, RESP EASY AND UNLABORED, NAD PT CLEARED FOR D/C BY DR NAPOLES AND DR RIGGS RX FOR ASA, BRILLINTA, COREG, ALDACTONE, ZESTRIL, CRESTOR GIVEN PER DR RIGGS PT REFUSED REPEAT LAB TODAY F/U WITH DR NAPOLES AND DR RIGGS IN THE OFFICE PT AGREE W/POC AND VERBALIZE UNDERSTANDING Objective - Vital Signs/Intake and Output Vital Signs (last 24 hours): Temp Pulse Resp BP Pulse Ox 98.2 F 71 20 99/56 L 97 12/16/16 23:45 12/17/16 03:30 12/16/16 23:45 12/16/16 23:45 12/16/16 23:45 - Medications Medications: Current Medications Aspirin (Ecotrin) 81 mg PO DAILY [facility] Last Admin: 12/17/16 10:26 Dose: 81 mg Carvedilol (Coreg) 6.25 mg PO BID [facility] Last Admin: 12/16/16 17:50 Dose: 6.25 mg Enoxaparin Sodium (Lovenox) 40 mg SC DAILY [facility] Last Admin: 12/17/16 10:27 Dose: 40 mg Lisinopril (Zestril) 2.5 mg PO DAILY [facility] Last Admin: 12/17/16 10:27 Dose: 2.5 mg Rosuvastatin Calcium (Crestor) 10 mg PO HS [facility] Last Admin: 12/16/16 21:07 Dose: 10 mg Spironolactone (Aldactone) 25 mg PO BID [facility] Last Admin: 12/17/16 10:26 Dose: 25 mg Ticagrelor (Brilinta) 90 mg PO BID [facility] Last Admin: 12/16/16 19:15 Dose: 90 mg - Labs Labs: 12/16/16 05:49 12/16/16 05:49 PT 13.7 SECONDS (9.7-12.2) H 12/14/16 09:14 INR 1.2 12/14/16 09:14 APTT 90 SECONDS (21-34) H 12/14/16 13:14
[2016-12-17 16:09] VITALS: BP 122/70; PULSE 75; TEMP 98.3
--- NOTE | 2016-12-17 17:24 | CP.PCM.PN ---
Subjective - Date & Time of Evaluation Date of Evaluation: 12/17/16 Time of Evaluation: 11:00 - Subjective Subjective: clinically same Objective - Vital Signs/Intake and Output Vital Signs (last 24 hours): Temp Pulse Resp BP Pulse Ox 98.3 F 75 20 122/70 97 12/17/16 15:00 12/17/16 15:00 12/17/16 15:00 12/17/16 15:00 12/17/16 15:00 - Medications Medications: Current Medications Aspirin (Ecotrin) 81 mg PO DAILY [facility] Last Admin: 12/17/16 10:26 Dose: 81 mg Carvedilol (Coreg) 6.25 mg PO BID [facility] Last Admin: 12/17/16 10:25 Dose: 6.25 mg Enoxaparin Sodium (Lovenox) 40 mg SC DAILY [facility] Last Admin: 12/17/16 10:27 Dose: 40 mg Lisinopril (Zestril) 2.5 mg PO DAILY [facility] Last Admin: 12/17/16 10:27 Dose: 2.5 mg Rosuvastatin Calcium (Crestor) 10 mg PO [facility] Last Admin: 12/16/16 21:07 Dose: 10 mg Spironolactone (Aldactone) 25 mg PO BID [facility] Last Admin: 12/17/16 10:26 Dose: 25 mg Ticagrelor (Brilinta) 90 mg PO BID [facility] Last Admin: 12/17/16 10:25 Dose: 90 mg - Labs Labs: 12/16/16 05:49 12/16/16 05:49 PT 13.7 SECONDS (9.7-12.2) H 12/14/16 09:14 INR 1.2 12/14/16 09:14 APTT 90 SECONDS (21-34) H 12/14/16 13:14 - Constitutional Appears: Well - Head Exam Head Exam: ATRAUMATIC, NORMAL INSPECTION, NORMOCEPHALIC - Eye Exam Eye Exam: EOMI, Normal appearance, PERRL Pupil Exam: NORMAL ACCOMODATION, PERRL - ENT Exam ENT Exam: Mucous Membranes Moist, Normal Exam - Neck Exam Neck Exam: Full ROM, Normal Inspection. absent: Lymphadenopathy - Respiratory Exam Respiratory Exam: Decreased Breath Sounds - Cardiovascular Exam Cardiovascular Exam: REGULAR RHYTHM, +S1, +S2 - GI/Abdominal Exam GI & Abdominal Exam: Soft, Diminished Bowel Sounds - Rectal Exam Rectal Exam: Deferred
--- NOTE | 2016-12-21 16:49 | CARD ---
APPROVED REPORT EKG Measurement Heart [id number] <Conclusion> Normal sinus rhythm Right bundle branch block Abnormal ECG
--- NOTE | 2016-12-24 18:10 | CARDCATH ---
PROCEDURE DATE: 12/14/2016 BRIEF HISTORY: The patient is a 71-year-old gentleman who has no past medical history and he present ed with acute onset of chest pain and shortness of breath with EKG showing right bundle branch block and anterolateral ST elevation. The patient was brought to the cardiac catheterization lab after obt aining informed consent and discussing risks and benefits of the procedure. The patient was prepped and draped in the usual sterile fashion for right femoral artery access. Usi ng the Seldinger technique and local anesthesia, the right femoral artery was accessed and a 6-[place] sheath was placed. Standard catheters were used for initial diagnostic imaging and diagnostic angiography revealed the f ollowing findings: 1. The left main coronary artery was normal. 2. The left anterior descending artery was 100% occluded in the proximal segment. This was likely t he culprit vessel. 3. Left circumflex showed luminal irregularities. 4. The right coronary artery was not initially looked at given acuity of the LAD lesion. We proceed ed with preparation for urgent revascularization of the LAD. Using an XB LAD guiding catheter and an 0.014 run-through wire, the LAD proximal occlusion was crosse d and the wire placed in the distal LAD at the apex. Multiple balloon inflations were done resulting in recanalization of the LAD. A 3.0 x 12 mm drug-eluting stent was placed across the lesion and dil ated to optimal pressures followed by post-dilatation with a 3.5 x 12 mm balloon. ANTWON 3 flow was re stored and the stenosis was reduced from 100% to 0%. The residual LAD showed tortuosity and mild dif fuse disease in the mid and distal portion and it rapidly tapered into a small vessel at the apex. Subsequent imaging of the right coronary artery revealed a nondominant and nonobstructive vessel. Left ventriculography showed ejection fraction in the range of 35% with anterior and apical akinesia with an LVEDP of 35 mmHg. CONCLUSION: 1. Acute anterior ST elevation myocardial infarction from a 100% occluded left anterior descending a rtery in the proximal segment which was successfully treated with a drug-eluting stent with restorati on of ANTWON 3 flow. 2. Moderate left ventricular systolic dysfunction with regional wall motion abnormalities in the ter ritory of the left anterior descending artery. 3. No significant obstruction in the left circumflex or right coronary artery. PLAN: The patient will continue to be treated with dual antiplatelet therapy with aspirin and Brilin ta, I would suggest addition of carvedilol and titrate to blood pressure and heart rate, suggest high dose statin therapy, also the addition of EDUARDO inhibitor or ARB when tolerated, I would also suggest Aldactone 12.5-25 mg per day when tolerated. The right groin access was secured with Angio-Seal. No complications occurred during the procedure a nd the patient will be continuously monitored in the ICU. Gustavo Willson MD cc: [id number] TT: 12/24/2016 18:09:28 sn
== END 2016-12-17 16:40 | disposition home or self-care (01) | DRG 247 ==
LOC: C.ER 08:52 → C.9I 09:12 → C.6T 12-16 14:48
PROVIDERS: ADMIT Internal Medicine Nephrology; ATTEND Internal Medicine Nephrology
PROC: 4A023N7 Measurement of Cardiac Sampling and Pressure, Left Heart, Percutaneous Approach (ICD-10-PCS; principal; 2016-12-14)
PROC: 027034Z Dilation of Coronary Artery, One Artery with Drug-eluting Intraluminal Device, Percutaneous Approach (ICD-10-PCS; 2016-12-14)
PROC: B2151ZZ Fluoroscopy of Left Heart using Low Osmolar Contrast (ICD-10-PCS; 2016-12-14)
PROC: B2111ZZ Fluoroscopy of Multiple Coronary Arteries using Low Osmolar Contrast (ICD-10-PCS; 2016-12-14)
DX: I21.09 ST elevation (STEMI) myocardial infarction involving other coronary artery of anterior wall (principal); I47.2 Ventricular tachycardia; I25.10 Atherosclerotic heart disease of native coronary artery without angina pectoris; I25.82 Chronic total occlusion of coronary artery; I45.10 Unspecified right bundle-branch block; I10 Essential (primary) hypertension; E78.00 Pure hypercholesterolemia, unspecified; E78.5 Hyperlipidemia, unspecified; I25.5 Ischemic cardiomyopathy

== ENCOUNTER 2017-09-12 08:36 | Inpatient (IN) | payer MEDICARE, MEDICAID ==
[2017-09-12 08:38] VITALS: BMI 24.9
[2017-09-12 09:12] LABS: BASO % 0.7 % (0.0-2.0); EOS # 0.2 K/uL (0.0-0.7); EOS % 3.4 % (0.0-4.0); LYMPH # 1.1 K/uL (1.0-4.3); LYMPH % 15.1 % (20.0-40.0); MEAN CELL VOLUME 97.1 fL (80.0-94.0); MEAN CORPUSCULAR HEMOGLOBIN 32.8 pg (27.0-31.0); MEAN CORPUSCULAR HGB CONC 33.8 g/dL (33.0-37.0); MEAN PLATELET VOLUME 9.2 fL (7.2-11.7); MONO # 0.7 K/uL (0.0-0.8); MONO % 9.4 % (0.0-10.0); NEUT % 71.4 % (50.0-75.0); RBC 4.48 Mil/uL (4.40-5.90); RED CELL DISTRIBUTION WIDTH 13.6 % (11.5-14.5)
--- NOTE | 2017-09-12 09:14 | RAD ---
Chest x-ray single frontal view History: Chest pain. Comparison: 12/14/2016 Findings: Patchy consolidative changes at the left lung base which may represent underlying infiltrate and or atelectasis. Milder patchy increased markings at the right lung base. Biapical thickening with upper lobe granulomatous changes. Right hilar prominence. Heart size normal limits. Degenerative changes in the spine. Impression: Patchy consolidative changes at the left lung base which may represent underlying infiltrate and or atelectasis. Milder patchy increased markings at the right lung base. Biapical thickening with upper lobe granulomatous changes. Right hilar prominence.
[2017-09-12 09:20] LABS: PROTHROMBIN TIME 11.9 SECONDS (9.7-12.2)
[2017-09-12 09:21] LABS: HEMOGLOBIN 14.7 g/dL (12.0-18.0)
[2017-09-12 09:35] LABS: B-TYPE NATRIURETIC PEPTIDE 330 pg/mL (0-900)
[2017-09-12 09:37] LABS: ALB/GLOB RATIO 1.1 (1.0-2.1); ALBUMIN 4.2 g/dL (3.5-5.0); ALT/SGPT 18 U/L (21-72); AST/SGOT 35 U/L (17-59); BLOOD UREA NITROGEN 18 mg/dL (9-20); CALCIUM 9.7 mg/dl (8.6-10.4); GFR AFRICAN-AMERICAN > 60; GFR NON-AFRICAN AMERICAN > 60
[2017-09-12] MEDS ORDERED: Potassium Chloride 20 mEq ER Tab PO STA (10:17)
--- NOTE | 2017-09-12 10:17 | C.PDOC ---
History Of Present Illness 72-year-old male, PMHx includes CAD (s/p 2 stents) presents to the emergency department with complaints of sudden onset chest pain that started this morning , associated with shortness of breath. EMS was called and patient found in rapid atrial fibrillation. He was given Aspirin, Nitro and 25mg Cardizem in field, and rate control was sustained. Patient notes improvement in chest pain, and is currently asymptomatic. Denies any recent travel, leg swelling/pain, dizziness, or any other associated symptoms. No other complaints at this time. Time Seen by Provider: 09/12/17 08:39 Chief Complaint (Nursing): Chest Pain History Per: Patient History/Exam Limitations: no limitations Past Medical History Reviewed: Historical Data, Nursing Documentation, Vital Signs Vital Signs: Last Vital Signs Temp 98.0 F 09/12/17 14:39 Pulse 62 09/12/17 14:39 Resp 20 09/12/17 14:39 BP 114/72 09/12/17 14:39 Pulse Ox 100 09/12/17 15:28 - Medical History PMH: HTN, Hypercholesterolemia Denies: Chronic Kidney Disease Surgical History: Coronary Stent - [facility] Procedures DILATION OF 1 COR ART WITH DRUG-ELUT INTRA, PERC APPROACH (12/14/16) FLUOROSCOPY OF LEFT HEART USING LOW OSMOLAR CONTRAST (12/14/16) FLUOROSCOPY OF MULT COR ART USING L OSM CONTRAST (12/14/16) MEASURE OF CARDIAC SAMPL & PRESSURE, L HEART, PERC APPROACH (12/14/16) Family History: States: No Known Family Hx - Social History Hx Alcohol Use: No Hx Substance Use: No - Immunization History Hx Tetanus Toxoid Vaccination: No Hx Influenza Vaccination: No Hx Pneumococcal Vaccination: No Review Of Systems Except As Marked, All Systems Reviewed And Found Negative. Constitutional: Negative for: Fever, Chills Cardiovascular: Positive for: Chest Pain. Negative for: Palpitations Respiratory: Positive for: Shortness of Breath Gastrointestinal: Negative for: Nausea, Vomiting Musculoskeletal: Negative for: Arm Pain, Back Pain Skin: Negative for: Rash Neurological: Negative for: Weakness, Numbness, Headache, Dizziness Physical Exam - Physical Exam Appears: Well, Non-toxic, No Acute Distress Skin: Normal Color, Warm, Dry, No Diaphoretic, No Rash, No Jaundice Head: Normacephalic Eye(s): bilateral: PERRL Nose: Normal Oral Mucosa: Moist Lips: Normal Appearing Neck: Normal ROM Chest: Symmetrical Cardiovascular: Rhythm Irregular, No Murmur Respiratory: Normal Breath Sounds, No Accessory Muscle Use Gastrointestinal/Abdominal: Soft, No Tenderness Extremity: Normal ROM, No Deformity, No Swelling Neurological/Psych: Oriented x3, Normal Speech ED Course And Treatment - Laboratory Results Result Diagrams: 09/12/17 09:05 09/12/17 09:05 O2 Sat by Pulse Oximetry: 100 (RA) Pulse Ox Interpretation: Normal Medical Decision Making Medical Decision Making: Initial EKG Rate 58bpm Rhythm Rate controlled atrial fibrillation Interpret Left axis deviation, RBBB, non specific T wave changes Plan: * EKG * BNP, CMP, Trop I * CBC, PTT/PT * Chest X-Ray * KCl * Reassess and Disposition Repeat EKG Rate 56bpm Rhythm NSR Interpret Left axis deviation, RBBB, non specific T wave changes Disposition - Disposition Disposition: HOSPITALIZED Disposition Time: 10:20 Condition: FAIR - Clinical Impression Clinical Impression: Chest pain, Atrial fibrillation - Scribe Statement The provider has reviewed the documentation as recorded by the Scribe (Charissa Kilgore) All medical record entries made by the Scribe were at my direction and personally dictated by me. I have reviewed the chart and agree that the record accurately reflects my personal performance of the history, physical exam, medical decision making, and the department course for this patient. I have also personally directed, reviewed, and agree with the discharge instructions and disposition.
--- NOTE | 2017-09-12 10:19 | C.PDOC ---
Time Seen by Provider: 09/12/17 08:39 Chief Complaint (Nursing): Chest Pain Past Medical History Vital Signs: Last Vital Signs Temp 98.4 F 09/12/17 08:37 Pulse 56 L 09/12/17 10:05 Resp 16 09/12/17 10:05 BP 92/59 L 09/12/17 10:05 Pulse Ox 100 09/12/17 10:05 - Medical History PMH: HTN, Hypercholesterolemia Denies: Chronic Kidney Disease Surgical History: Coronary Stent - [facility] Procedures DILATION OF 1 COR ART WITH DRUG-ELUT INTRA, PERC APPROACH (12/14/16) FLUOROSCOPY OF LEFT HEART USING LOW OSMOLAR CONTRAST (12/14/16) FLUOROSCOPY OF MULT COR ART USING L OSM CONTRAST (12/14/16) MEASURE OF CARDIAC SAMPL & PRESSURE, L HEART, PERC APPROACH (12/14/16) - Social History Hx Alcohol Use: No Hx Substance Use: No - Immunization History Hx Tetanus Toxoid Vaccination: No Hx Influenza Vaccination: No Hx Pneumococcal Vaccination: No ED Course And Treatment - Laboratory Results Result Diagrams: 09/12/17 09:05 09/12/17 09:05 O2 Sat by Pulse Oximetry: 100 Disposition Discussed With : Marnie Curtis Counseled Patient/Family Regarding: Studies Performed, Diagnosis - Disposition Disposition: HOSPITALIZED Disposition Time: 10:18 Condition: FAIR - Clinical Impression Clinical Impression: Chest pain, Atrial fibrillation
[2017-09-12] MEDS ORDERED: Potassium Chloride 20 mEq ER Tab PO ONE (11:01)
[2017-09-12] MEDS ORDERED: Potassium Ch 20mEq in D5-1/2NS 1,000 ML IV SCH ×2 (12:00→12:15)
[2017-09-12] MEDS ORDERED: Lidocaine 5% Patch TD ONE (12:11)
--- NOTE | 2017-09-12 13:08 | CP.PCM.CON ---
<Heriberto Rodriguez - Last Filed: 09/12/17 14:00> History of Present Illness - History of Present Illness History of Present Illness: PGY5 GI Fellow Consult Note Patient is a 72yo Gujarati-speaking male with PMHx significant for CAD with prior STEMI requiring emergent PCI for 100% occluded LAD in 12/2016 (on ASA, Brilinta per medication reconciliation review), HTN, HLD, vitiligo who presented to the ED brought in by ambulance for complaint of chest pain and shortness of breath. Patient's son is present for examination and assisted with translation. Patient states that for the last week he has been having progressively worsening left sided chest pain accompanied by worsening shortness of breath. symptoms became unbearable at home, he contacted EMS who brought him to our facility. En route, it was noted that the patient was in atrial fibrillation with RVR and he was given ASA, nitroglycerin and Cardizem IV with resolution of the rhythm and chest pain. He continues to complain of mild SOB at this time. On review of systems, patient states he has been experiencing epigastric/periumbilical abdominal pain, post-prandial discomfort and dark stool for the last 7-10 days. In a two week span he admits to ~10 pound weight loss due to inability to eat much food without discomfort. Denies any new medications or recent NSAID use. Denies palpitations, dizziness, lightheadedness, nausea, vomiting, hematochezia. PMHx: See HPI PSHx:Discussed with patient and no prior surgical history FHx: Discussed with patient and he denies any significant family history Social: Deneis tobacco, EtOH or illicit drug use Endo: Colonoscopy - 01/2016 - internal hemorrhoids 12 system ROS performed and negative except where stated. Past Patient History - Infectious Disease Hx of Infectious Diseases: None - Past Medical History & Family History Past Medical History?: Yes - Past Social History Smoking Status: Never Smoked - CARDIAC Hx Hypercholesterolemia: Yes Hx Hypertension: Yes - PULMONARY Hx Respiratory Disorders: No - NEUROLOGICAL Hx Neurological Disorder: No - HEENT Hx HEENT Problems: No - RENAL Hx Chronic Kidney Disease: No - ENDOCRINE/METABOLIC Hx Endocrine Disorders: No - HEMATOLOGICAL/ONCOLOGICAL Hx Blood Disorders: No - INTEGUMENTARY Hx Dermatological Problems: Yes Other/Comment: PT HAS VITILIAGO - MUSCULOSKELETAL/RHEUMATOLOGICAL Hx Falls: No - GASTROINTESTINAL Hx Gastrointestinal Disorders: No - GENITOURINARY/GYNECOLOGICAL Hx Genitourinary Disorders: No - PSYCHIATRIC Hx Substance Use: No - SURGICAL HISTORY Hx Coronary Stent: Yes - ANESTHESIA Hx Anesthesia: Yes Hx Anesthesia Reactions: (UNKNOWN) Hx Malignant Hyperthermia: (UNKNOWN) Meds Allergies/Adverse Reactions: Allergies Allergy/AdvReac Type Severity Reaction Status Date / Time No Known Allergies Allergy Verified 09/12/17 08:42 - Medications Medications: Current Medications Potassium Chloride/Dextrose/Sod Cl (Potassium Chl 20 Meq In D5-1/2ns) 1,000 mls @ 50 mls/hr IV .Q20H [facility] Last Admin: 09/12/17 12:42 Dose: 50 mls/hr Pantoprazole Sodium (Protonix Inj) 40 mg IVP Q12H [facility] Last Admin: 09/12/17 12:28 Dose: 40 mg Physical Exam - Constitutional Appears: Non-toxic, No Acute Distress - Eye Exam Eye Exam: EOMI, PERRL - ENT Exam ENT Exam: Mucous Membranes Moist - Respiratory Exam Respiratory Exam: Rales (Left sided). absent: Clear to Auscultation Bilateral, Rhonchi, Wheezes - Cardiovascular Exam Cardiovascular Exam: RRR, +S1, +S2 - GI/Abdominal Exam GI & Abdominal Exam: Soft, Tenderness (periumbilical). absent: Distended, Firm , Guarding, Normal Bowel Sounds, Organomegaly, Rigid Additional comments: Rodriguez sign negative - Rectal Exam Rectal Exam: NORMAL INSPECTION. absent: Black Stool, Bloody Stool, Hemorrhoids - Extremities Exam Extremities exam: Positive for: normal inspection. Negative for: pedal edema - Neurological Exam Neurological exam: Alert, Oriented x3 - Psychiatric Exam Psychiatric exam: Normal Affect, Normal Mood - Skin Skin Exam: Dry, Warm Results - Vital Signs Recent Vital Signs: Last Vital Signs Temp 98.4 F 09/12/17 08:37 Pulse 60 09/12/17 12:31 Resp 20 09/12/17 12:31 BP 102/61 09/12/17 12:31 Pulse Ox 100 09/12/17 12:31 - Labs Result Diagrams: 09/12/17 09:05 09/12/17 09:05 Labs: Laboratory Results - last 24 hr 09/12/17 09/12/17 09/12/17 09:05 09:05 09:05 WBC 7.0 RBC 4.48 Hgb 14.7 D Hct 43.5 MCV 97.1 H MCH 32.8 H MCHC 33.8 RDW 13.6 Plt Count 169 MPV 9.2 Neut % (Auto) 71.4 Lymph % (Auto) 15.1 L [place] % (Auto) 9.4 Eos % (Auto) 3.4 Baso % (Auto) 0.7 Neut # (Auto) 5.0 Lymph # (Auto) 1.1 Republic # (Auto) 0.7 Eos # (Auto) 0.2 Baso # (Auto) 0.0 PT 11.9 INR 1.0 APTT 33 Sodium 142 Potassium 3.2 L Chloride 103 Carbon Dioxide 26 Anion Gap 16 BUN 18 Creatinine 1.0 Est GFR ( Amer) > 60 Est GFR (Non-Af Amer) > 60 Random Glucose 106 Calcium 9.7 Total Bilirubin 1.5 H AST 35 ALT 18 L D Alkaline Phosphatase 87 Troponin I < 0.0120 NT-Pro-B Natriuret Pep 330 Total Protein 8.1 Albumin 4.2 Globulin 3.8 Albumin/Globulin Ratio 1.1 Assessment & Plan - Assessment and Plan (Free Text) Assessment: Patient is a 72yo male with PMHx significant for CAD s/p PCIx2, vitiligo who presented to the ED brought in by ambulance for complaint of chest pain and shortness of breath. -Chest pain, SOB -Paroxysmal atrial fibrillation with RVR, now NSR -CAD s/p PCI on ASA, Brilinta -Periumbilical abdominal pain, dyspepsia -Unintentional weight loss Plan: -Was in PAF resolved with cardizem in transit to hospital, now NSR -Cardiac and pulm work up given symptoms -Pt on ASA/Brilinta for h/o CAD, PCI -Pt admits to weight loss, dyspepsia and post-prandial abdominal pain -Rectal exam unremarkable -Lab work reviewed and unremarkable -Monitor on the floor for any episodes of hematochezia/melena -Agree with protonix as ordered -Once patient medically optimized and when ASA/Brilinta can safely be held, can consider EGD to rule out any underlying cause of the patients discomfort - Date & Time Date: 09/12/17 Time: 12:30 <Sina Ramirez Y - Last Filed: 09/12/17 15:46> Meds - Medications Medications: Current Medications Aspirin (Ecotrin) 81 mg PO DAILY [facility] Last Admin: 09/12/17 15:03 Dose: 81 mg Carvedilol (Coreg) 3.125 mg PO BID [facility] Ergocalciferol (Drisdol 50,000 Intl Units Cap) 1 cap PO QWK [facility] Potassium Chloride/Dextrose/Sod Cl (Potassium Chl 20 Meq In D5-1/2ns) 1,000 mls @ 50 mls/hr IV .Q20H [facility] Last Admin: 09/12/17 12:42 Dose: 50 mls/hr Lisinopril (Zestril) 2.5 mg PO DAILY [facility] Pantoprazole Sodium (Protonix Inj) 40 mg IVP Q12H [facility] Last Admin: 09/12/17 12:28 Dose: 40 mg Pneumococcal Polyvalent Vaccine (Pneumovax 23 Vaccine) 0.5 ml IM .ONCE ONE Stop: 09/14/17 10:01 Rosuvastatin Calcium (Crestor) 10 mg PO HS [facility] Spironolactone (Aldactone) 25 mg PO BID [facility] Ticagrelor (Brilinta) 90 mg PO BID [facility] Vitamin B Complex/Folic Acid (Berroca) 1 tab PO DAILY [facility] Results - Vital Signs Recent Vital Signs: Last Vital Signs Temp 98.0 F 09/12/17 14:39 Pulse 62 09/12/17 15:28 Resp 20 09/12/17 14:39 BP 114/72 09/12/17 14:39 Pulse Ox 100 09/12/17 15:30 - Labs Result Diagrams: 09/12/17 09:05 09/12/17 09:05 Labs: Laboratory Results - last 24 hr 09/12/17 09/12/17 09/12/17 09:05 09:05 09:05 WBC 7.0 RBC 4.48 Hgb 14.7 D Hct 43.5 MCV 97.1 H MCH 32.8 H MCHC 33.8 RDW 13.6 Plt Count 169 MPV 9.2 Neut % (Auto) 71.4 Lymph % (Auto) 15.1 L [place] % (Auto) 9.4 Eos % (Auto) 3.4 Baso % (Auto) 0.7 Neut # (Auto) 5.0 Lymph # (Auto) 1.1 [place] # (Auto) 0.7 Eos # (Auto) 0.2 Baso # (Auto) 0.0 PT 11.9 INR 1.0 APTT 33 Sodium 142 Potassium 3.2 L Chloride 103 Carbon Dioxide 26 Anion Gap 16 BUN 18 Creatinine 1.0 Est GFR ( Amer) > 60 Est GFR (Non-Af Amer) > 60 Random Glucose 106 Calcium 9.7 Total Bilirubin 1.5 H AST 35 ALT 18 L D Alkaline Phosphatase 87 Troponin I < 0.0120 NT-Pro-B Natriuret Pep 330 Total Protein 8.1 Albumin 4.2 Globulin 3.8 Albumin/Globulin Ratio 1.1 Attending/Attestation - Attestation I have personally seen and examined this patient.: Yes I have fully participated in the care of the patient.: Yes I have reviewed all pertinent clinical information: Yes Notes (Text): 09/12/17 15:38 I have seen and examined patient with GI fellow. Agree with above documentation with the following additions. In brief, this is a 72 year old male with history of CAD s/p stent on brilinta, HTN, hyperlipidemia, vitiligo, who initially presented to hospital with complaint of severe left sided chest pain with associated dyspnea on exertion. According to patient his symptoms have gotten progressively worse over the past one week along with profound weakness. GI called for evaluation of dark stool which the patient endorses has been happening for the past 10 days. He has been having once daily bowel movements and reports mild post prandial abdominal pain during this time. He otherwise denies nausea, vomiting, fever/chills, or visible rectal bleeding. He does report recent weight loss but is not able to quantify amount. He had a colonoscopy in December 2015 which showed internal hemorrhoids. Review of vitals from today are normal. CAD s/p stent on brilinta HTN Vitiligo Melena - Liquid diet as tolerated - H/H stable, continue to monitor. No evidence of melena present on rectal exam performed today. - Continue with PPI therapy - Initial atrial fibrillation now resolved, follow up cardiology recommendations - Patient would benefit from EGD evaluation following cardiac evaluation and optimization. Last dose of brilinta yesterday according to patient. Will continue to monitor patient clinical course.
--- NOTE | 2017-09-12 13:50 | CP.PCM.HP ---
<Pretty Mccann - Last Filed: 09/12/17 13:42> History of Present Illness - History of Present Illness History of Present Illness: Patient is a 72 y/o male with past medical history of STEMI, CAD, COPD, bronchiectasis, HLD, GERD, and vitiligo, who presents to the ED with chest pain. Pt. states the chest pain came on suddenly this morning at 7AM while he was sitting down. He describes the pain as burning and similar to the chest pain that he had last year before his STEMI. He states the pain is not pressure- like, but is reproducible over the left side of his chest. Admits to associated palpitations. He says he was not able to take his usual home medications today because he came to the ED right away, and hence has not tried anything to make the pain better or worse. The patient attributes this chest pain and occasional shortness of breath to the drug-eluting stent that he received for his STEMI last year in December. Ever since the procedure, he states his condition has seemed to worsen. Additionally, the patient complains of lower abdominal pain and frequent bowel movements for the past 5 days, having to go to the bathroom every hour. He describes the stool to be loose and black in color. Currently, patient has chest pain bilaterally (L>R), lower abdominal pain bilaterally, and diarrhea. He denies n/v, fever, chills, SOB, dysuria, leg swelling, and leg pain. PMD: Dr. Govind Trejo Cardio: Dr. Larkin (Dr. Willson performed stent) PMHx: STEMI (12/2016), HLD, CAD, COPD, left lobe bronchiectasis, GERD, vitiligo SHx: drug-eluting stent in LAD (12/2016); ECHO (12/2016)EF 56%, Grade 1 abnormal relaxation Allergies: denies Social Hx: denies cigarette, alcohol, and illicit drug use FHx: denies Medications: Brilinta 90mg 1 tab PO BID, Bentyl 10mg 1 cap PO BID PRN, Prilosec 20mg 1 cap PO QD, Rosuvastatin 20mg 1 tab PO HS, Montelukast 10mg 1 tab PO HS, Ge-24 200mg 1 cap PO QD, Aspirin 81mg 1 tab PO QD, Vit. D 50,000 units PO, Carvedilol 3.125mg 1 tab PO BID, Stiolto Respimate 2.5-2.5mcg/act aerosol soln 2 puffs INH QD Present on Admission - Present on Admission Any Indicators Present on Admission: No Review of Systems - Review of Systems All systems: reviewed and no additional remarkable complaints except (as per HPI ) Past Patient History - Infectious Disease Hx of Infectious Diseases: None - Past Medical History & Family History Past Medical History?: Yes - Past Social History Smoking Status: Never Smoked - CARDIAC Hx Hypercholesterolemia: Yes Hx Hypertension: Yes - PULMONARY Hx Respiratory Disorders: No - NEUROLOGICAL Hx Neurological Disorder: No - HEENT Hx HEENT Problems: No - RENAL Hx Chronic Kidney Disease: No - ENDOCRINE/METABOLIC Hx Endocrine Disorders: No - HEMATOLOGICAL/ONCOLOGICAL Hx Blood Disorders: No - INTEGUMENTARY Hx Dermatological Problems: Yes Other/Comment: PT HAS VITILIAGO - MUSCULOSKELETAL/RHEUMATOLOGICAL Hx Falls: No - GASTROINTESTINAL Hx Gastrointestinal Disorders: No - GENITOURINARY/GYNECOLOGICAL Hx Genitourinary Disorders: No - PSYCHIATRIC Hx Substance Use: No - SURGICAL HISTORY Hx Coronary Stent: Yes - ANESTHESIA Hx Anesthesia: Yes Hx Anesthesia Reactions: (UNKNOWN) Hx Malignant Hyperthermia: (UNKNOWN) Meds Allergies/Adverse Reactions: Allergies Allergy/AdvReac Type Severity Reaction Status Date / Time No Known Allergies Allergy Verified 09/12/17 08:42 Physical Exam - Constitutional Appears: Non-toxic, No Acute Distress - Head Exam Head Exam: ATRAUMATIC, NORMAL INSPECTION, NORMOCEPHALIC - Eye Exam Eye Exam: EOMI, PERRL - ENT Exam ENT Exam: Mucous Membranes Moist - Neck Exam Neck exam: Negative for: Lymphadenopathy, Thyromegaly Additional comments: No JVD - Respiratory Exam Respiratory Exam: Clear to Auscultation Bilateral, NORMAL BREATHING PATTERN. absent: Accessory Muscle Use, Rales, Rhonchi, Wheezes, Respiratory Distress - Cardiovascular Exam Cardiovascular Exam: Irregular Rhythm, +S1, +S2. absent: Bradycardia, Tachycardia, Diastolic murmur, Gallop, Rubs, +S4, Systolic Murmur - GI/Abdominal Exam GI & Abdominal Exam: Normal Bowel Sounds, Soft, Tenderness (b/l lower quadrants ). absent: Distended, Guarding - Extremities Exam Extremities exam: Positive for: normal inspection. Negative for: calf tenderness, pedal edema - Neurological Exam Neurological exam: Alert, Oriented x3 - Psychiatric Exam Psychiatric exam: Normal Affect, Normal Mood - Skin Skin Exam: Dry, Intact, Warm Additional comments: Vitiligo Results - Vital Signs Recent Vital Signs: Last Vital Signs Temp 98.4 F 09/12/17 08:37 Pulse 60 09/12/17 12:31 Resp 20 09/12/17 12:31 BP 102/61 09/12/17 12:31 Pulse Ox 100 09/12/17 12:31 - Labs Result Diagrams: 09/12/17 09:05 09/12/17 09:05 Labs: Laboratory Results - last 24 hr 09/12/17 09/12/17 09/12/17 09:05 09:05 09:05 WBC 7.0 RBC 4.48 Hgb 14.7 D Hct 43.5 MCV 97.1 H MCH 32.8 H MCHC 33.8 RDW 13.6 Plt Count 169 MPV 9.2 Neut % (Auto) 71.4 Lymph % (Auto) 15.1 L Bureau % (Auto) 9.4 Eos % (Auto) 3.4 Baso % (Auto) 0.7 Neut # (Auto) 5.0 Lymph # (Auto) 1.1 Bureau # (Auto) 0.7 Eos # (Auto) 0.2 Baso # (Auto) 0.0 PT 11.9 INR 1.0 APTT 33 Sodium 142 Potassium 3.2 L Chloride 103 Carbon Dioxide 26 Anion Gap 16 BUN 18 Creatinine 1.0 Est GFR ( Amer) > 60 Est GFR (Non-Af Amer) > 60 Random Glucose 106 Calcium 9.7 Total Bilirubin 1.5 H AST 35 ALT 18 L D Alkaline Phosphatase 87 Troponin I < 0.0120 NT-Pro-B Natriuret Pep 330 Total Protein 8.1 Albumin 4.2 Globulin 3.8 Albumin/Globulin Ratio 1.1 Assessment & Plan (1) Atrial fibrillation Assessment and Plan: * Given cardizem 2mg in the field for rate control - currently rate controlled * EKG: RBBB, left axis deviation, Afib with slow ventricular response and premature ventricular or aberrantly conducted complexes * Cardiology consulted, Dr. Mixon, help appreciated * f/u echo * f/u thyroid studies * ESPINOZA VASC: 2 * HAS BLED: 2 * Continue home carvedilol Status: Acute (2) Chest pain Assessment and Plan: * Troponin negative x1 * f/u trend * EKG: RBBB, left axis deviation, Afib with slow ventricular response and premature ventricular or aberrantly conducted complexes * f/u repeat * ECHO (12/2016)EF 56%, Grade 1 abnormal relaxation pattern * Cardiology consulted, Dr. Larkin, help appreciated * f/u d-dimer Status: Acute (3) Shortness of breath Assessment and Plan: * history of COPD and bronchiectasis * f/u theophyline level * f/u D-dimer Status: Acute (4) Diarrhea Assessment and Plan: * complaining of dark tary stools * stool occult blood negative * Liquid diet * GI consulted, Dr. Ramirez, help appreciated * f/u giardia, H. pylori, C. Diff, fecal leukocytes, ova and parasites, and stool cultures Status: Acute (5) Hypokalemia Assessment and Plan: * replaced in ED * f/u mag * monitor with morning labs Status: Acute (6) History of ST elevation myocardial infarction (STEMI) Assessment and Plan: * Cardio consulted, Dr. Larkin, help appreciated * Troponin negative * f/u trend * f/u echo * continue home meds: ASA, Coreg, lisinopril, crestor, spironolactone, Brilinta Status: Acute (7) Hyperlipidemia Assessment and Plan: * f/u lipid panel * Crestor 10 mg PO HS Status: Acute (8) Prophylactic measure Assessment and Plan: * DVT: SCDs * GI: Protonix Status: Acute <Marnie Curtis V - Last Filed: 09/12/17 23:17> Results - Vital Signs Recent Vital Signs: Last Vital Signs Temp 98.6 F 09/12/17 15:26 Pulse 64 09/12/17 19:03 Resp 20 09/12/17 15:26 BP 112/62 09/12/17 19:03 Pulse Ox 96 09/12/17 20:00 - Labs Result Diagrams: 09/12/17 16:29 09/12/17 09:05 Labs: Laboratory Results - last 24 hr 09/12/17 09/12/17 09/12/17 09:05 09:05 09:05 WBC 7.0 RBC 4.48 Hgb 14.7 D Hct 43.5 MCV 97.1 H MCH 32.8 H MCHC 33.8 RDW 13.6 Plt Count 169 MPV 9.2 Neut % (Auto) 71.4 Lymph % (Auto) 15.1 L Bureau % (Auto) 9.4 Eos % (Auto) 3.4 Baso % (Auto) 0.7 Neut # (Auto) 5.0 Lymph # (Auto) 1.1 Bureau # (Auto) 0.7 Eos # (Auto) 0.2 Baso # (Auto) 0.0 PT 11.9 INR 1.0 APTT 33 D-Dimer, Quantitative Sodium 142 Potassium 3.2 L Chloride 103 Carbon Dioxide 26 Anion Gap 16 BUN 18 Creatinine 1.0 Est GFR ( Amer) > 60 Est GFR (Non-Af Amer) > 60 Random Glucose 106 Calcium 9.7 Magnesium Total Bilirubin 1.5 H AST 35 ALT 18 L D Alkaline Phosphatase 87 Total Creatine Kinase CK-MB (Mass) Troponin I < 0.0120 NT-Pro-B Natriuret Pep 330 Total Protein 8.1 Albumin 4.2 Globulin 3.8 Albumin/Globulin Ratio 1.1 Free T4 TSH 3rd Generation Stool Occult Blood 09/12/17 09/12/17 09/12/17 15:23 16:29 16:29 WBC RBC Hgb Hct MCV MCH MCHC RDW Plt Count MPV Neut % (Auto) Lymph % (Auto) Bureau % (Auto) Eos % (Auto) Baso % (Auto) Neut # (Auto) Lymph # (Auto) Bureau # (Auto) Eos # (Auto) Baso # (Auto) PT INR APTT D-Dimer, Quantitative 296 H Sodium Potassium Chloride Carbon Dioxide Anion Gap BUN Creatinine Est GFR ( Amer) Est GFR (Non-Af Amer) Random Glucose Calcium Magnesium 1.6 Total Bilirubin AST ALT Alkaline Phosphatase Total Creatine Kinase 22 L CK-MB (Mass) 0.89 Troponin I 0.0300 NT-Pro-B Natriuret Pep Total Protein Albumin Globulin Albumin/Globulin Ratio Free T4 TSH 3rd Generation 0.97 Stool Occult Blood 09/12/17 09/12/17 09/12/17 16:29 16:29 22:43 WBC 6.1 RBC 3.94 L Hgb 13.0 Hct 37.4 MCV 94.9 H D MCH 33.0 H MCHC 34.8 RDW 13.6 Plt Count 144 MPV 8.6 Neut % (Auto) Lymph % (Auto) Bureau % (Auto) Eos % (Auto) Baso % (Auto) Neut # (Auto) Lymph # (Auto) Bureau # (Auto) Eos # (Auto) Baso # (Auto) PT INR APTT D-Dimer, Quantitative Sodium Potassium Chloride Carbon Dioxide Anion Gap BUN Creatinine Est GFR ( Amer) Est GFR (Non-Af Amer) Random Glucose Calcium Magnesium Total Bilirubin AST ALT Alkaline Phosphatase Total Creatine Kinase CK-MB (Mass) Troponin I NT-Pro-B Natriuret Pep Total Protein Albumin Globulin Albumin/Globulin Ratio Free T4 1.62 TSH 3rd Generation Stool Occult Blood Positive H Attending/Attestation - Attestation I have personally seen and examined this patient.: Yes I have fully participated in the care of the patient.: Yes I have reviewed all pertinent clinical information: Yes Notes (Text): Patient seen, examined and case discussed with medical supervisor. Patient seen with Loree Intepretafranny Christopher in [place] in [facility] in the ED around 11:20 AM 09/12/17. Patient report he had chest pains this morning, did not take his medications, which was similar to when he had his heart attack last December. Patient was found in atrial fibrillation and convert to sinus after Cardizem 25mg, nitro, and aspirin. Patient seen at bedside and is in sinus. Patient denies chest pain at present. Patient reports he has also been having abdominal pains for past 4 days with associated multiple stools and they are "black" in color. Patient denies taking anything for stomachs except for antibiotic his doctor has given but cannot remember the name. Dr. Cyrus Campos's office contacted, patient with known hx of [place], COPD, Bronchiectasis, Lipid disorder, CAD, gastritis, and vitiligo. Patients sees Dr. Larkin as outpatient cardiology, and Dr. Ramirez as his GI last completed colonoscopy about 2 years ago which showed internal hemorrhoids. Patient is ordered for d-dimer, tsh, and free t4. Patient ordered for echocardiogram. Patient ordered for stool studies in light of diarrhea. patient given gentle iv hydration and started on liquid diet. GI and cardiology on consult Assessment & Plan (1) Atrial fibrillation new onset Assessment and Plan: * Given cardizem 25mg in the field for rate control - currently rate controlled * EKG: RBBB, left axis deviation, Afib with slow ventricular response and premature ventricular or aberrantly conducted complexes * Cardiology consulted, Dr. Mixon, help appreciated * f/u echo * f/u thyroid studies * ESPINOZA VASC: 2 * HAS BLED: 2 * Continue home carvedilol at home dosage * Chemical anticoagulation noted order in like of his "black" stool and abdominal pain he reports Status: Acute (2) Chest pain Assessment and Plan: * Troponin negative x1 * f/u trend * EKG: RBBB, left axis deviation, Afib with slow ventricular response and premature ventricular or aberrantly conducted complexes * f/u repeat * ECHO (12/2016)EF 56%, Grade 1 abnormal relaxation pattern * Cardiology consulted, Dr. Larkin, help appreciated * f/u d-dimer Status: Acute (3) Shortness of breath History of COPD and Bronchiectasis Assessment and Plan: * f/u D-dimer and theophylline levels Status: Acute (4) Diarrhea Assessment and Plan: * complaining of dark tary stools * Rectal does not show gross hematochezia, no masses palpated * stool occult blood negative * Liquid diet * GI consulted, Dr. Ramirez, help appreciated * f/u giardia, H. pylori, C. Diff, fecal leukocytes, ova and parasites, and stool cultures Status: Acute (5) Hypokalemia Assessment and Plan: * replaced in ED * f/u mag * monitor with morning labs Status: Acute (6) History of Coronary Artery Disease with MELL stent Assessment and Plan: * Cardio consulted, Dr. Larkin, help appreciated * ROMIS and EKG ordered * f/u echo * continue home meds: ASA, Coreg, lisinopril, crestor, spironolactone, Brilinta Status: Acute (7) Hyperlipidemia Assessment and Plan: * f/u lipid panel in AM * Crestor 10 mg PO HS Status: Acute (8) Prophylactic measure Assessment and Plan: * DVT: SCDs * GI: Protonix 40mg IV Q12H * Chemical anticoagulation held given patient's black stool complaint. Status: Acute
[2017-09-12 15:52] LABS: CK-MB 0.89 ng/mL (0.0-3.38)
[2017-09-12 15:54] LABS: TROPONIN I 0.03 ng/mL (0.00-0.120)
[2017-09-12 16:32] LABS: MEAN CELL VOLUME 94.9 fL (80.0-94.0); MEAN CORPUSCULAR HGB CONC 34.8 g/dL (33.0-37.0); MEAN PLATELET VOLUME 8.6 fL (7.2-11.7); RBC 3.94 Mil/uL (4.40-5.90); RED CELL DISTRIBUTION WIDTH 13.6 % (11.5-14.5); WHITE BLOOD COUNT 6.1 K/uL (4.8-10.8)
[2017-09-12 16:53] LABS: MAGNESIUM 1.6 mg/dL (1.6-2.3)
--- NOTE | 2017-09-12 18:28 | CARD ---
APPROVED REPORT EXAM: Two-dimensional and M-mode echocardiogram with Doppler and color Doppler. Other Information Quality : GoodRhythm : INDICATION Atrial Fibrillation Chest Pain 2D DIMENSIONS IVSd0.9 (0.7-1.1cm)LVDd4.7 (3.9-5.9cm) PWd0.7 (0.7-1.1cm)LVDs3.2 (2.5-4.0cm) FS (%) 32.7 %LVEF (%)61.1 (>50%) M-Mode DIMENSIONS Left Atrium (MM)3.23 (2.5-4.0cm)Aortic Root4.62 (2.2-3.7cm) Aortic Cusp Exc.2.04 (1.5-2.0cm) Aortic Valve AI P 1/2 [id number] Mitral Valve MV E Nxdazvbd32.6cm/sMV A Ewqvwaae64.0cm/sE/A ratio0.8 TDI E/Lateral E'0.0E/Medial E'0.0 Tricuspid Valve TR Peak [id number]/sTR Peak Gr.[id number] LEFT VENTRICLE The left ventricle is normal size. There is normal left ventricular wall thickness. The left ventricular function is normal. The left ventricular ejection fraction is within the normal range. 59% No regional wall motion abnormalities noted. Transmitral Doppler flow pattern is Grade I-abnormal relaxation pattern. No left ventricle thrombus noted on this study. There is no ventricular septal defect visualized. There is no left ventricular aneurysm. There is no mass noted in the left ventricle. RIGHT VENTRICLE The right ventricle is normal size. There is normal right ventricular wall thickness. The right ventricular systolic function is normal. ATRIA The left atrium size is normal. The right atrium size is normal. The interatrial septum is intact with no evidence for an atrial septal defect. AORTIC VALVE The aortic valve is normal in structure and function. Mild aortic regurgitation is present. There is no aortic valvular stenosis. There is no aortic valvular vegetation. MITRAL VALVE The mitral valve is normal in structure and function. There is no evidence of mitral valve prolapse. There is no mitral valve stenosis. There is mild mitral valve regurgitation noted. TRICUSPID VALVE The tricuspid valve is normal in structure and function. There is mild tricuspid valve regurgitation noted. There is no tricuspid valve prolapse or vegetation. There is no tricuspid valve stenosis. PULMONIC VALVE The pulmonary valve is normal in structure and function. There is no pulmonic valvular regurgitation. There is no pulmonic valvular stenosis. GREAT VESSELS The aortic root is normal in size. The ascending aorta is normal in size. The pulmonary artery is normal. The IVC is normal in size and collapses >50% with inspiration. PERICARDIAL EFFUSION The pericardium appears normal. There is no pleural effusion. <Conclusion> Normal LV systolic function. Type I dastolic function. Mild aortic and mild mitral regurgitation.
[2017-09-13 00:21] LABS: CK-MB 0.85 ng/mL (0.0-3.38)
[2017-09-13] MEDS ORDERED: Iodixanol 320 MG/ML 100 ML BOTTLE IV ONE (04:42)
--- NOTE | 2017-09-13 05:55 | CT ---
EXAM: CT Angiography Chest With Intravenous Contrast EXAM DATE/TIME: 09/13/2017 4:03 AM CLINICAL HISTORY: 72 years old, male; Signs and symptoms; Other: Elevated ddimer; Additional info: Elevated d dimer TECHNIQUE: Axial computed tomographic angiography images of the chest with intravenous contrast using pulmonary embolism protocol. All CT scans at this facility use one or more dose reduction techniques, viz.: automated exposure control; ma/kV adjustment per patient size (including targeted exams where dose is matched to indication; i.e. head); or iterative reconstruction technique. MIP reconstructed images were created and reviewed. Coronal and sagittal reformatted images were created and reviewed. CONTRAST: 100 mL of administered intravenously. COMPARISON: No relevant prior studies available. FINDINGS: PULMONARY ARTERIES: Filling defects in the left pulmonary artery, extending into the left lower lobe pulmonary artery, compatible with pulmonary emboli. AORTA: Exam is nondiagnostic for the detection of aortic dissection because of suboptimal enhancement of the aorta. LUNGS: Incidental 7 mm noncalcified pulmonary nodule in the left lower lobe posteriorly. In low-risk patients (minimal or absent history of smoking or other known risk factors), recommend chest CT follow-up at 6-12 months. If stable consider an additional follow-up CT at 18-24 months. For high-risk patients (history of smoking or other known risk factors), recommend chest CT follow-up in 6-12 months and then at 18-24 months. Marked chronic-appearing cystic and bronchiectatic changes in the left lung base, involving the lingula and left lower lobe. Mild emphysematous changes. No evidence of diffuse pulmonary vascular congestion. PLEURAL SPACE: No pneumothorax or pleural effusions seen. HEART: Heart appears mildly enlarged. Right heart chambers are enlarged compared with the left, suspicious for right heart strain. Coronary artery calcification. BONES/JOINTS: No acute bony abnormality identified. SOFT TISSUES: No acute abnormality of the visualized soft tissues seen. LYMPH NODES: No evidence of diffuse lymphadenopathy. IMPRESSION: - Left-sided pulmonary emboli, involving the central and left lower lobe pulmonary arteries. - Findings suspicious for associated right heart strain. - Otherwise, no evidence of significant acute process. - Incidental 7 mm pumonary nodule. See recommendations above. - Marked chronic-appearing bronchiectatic and cystic changes in the left lung base. - See above for remaining findings.
[2017-09-13 06:59] LABS: ALB/GLOB RATIO 1.1 (1.0-2.1); ALBUMIN 3.2 g/dL (3.5-5.0); ALT/SGPT 24 U/L (21-72); AST/SGOT 21 U/L (17-59); BLOOD UREA NITROGEN 14 mg/dL (9-20); CALCIUM 8.5 mg/dl (8.6-10.4); GFR AFRICAN-AMERICAN > 60; GFR NON-AFRICAN AMERICAN > 60; HDL CHOLESTEROL 42 mg/dL (30-70)
[2017-09-13 07:10] LABS: LDL CHOLESTEROL 34 mg/dL (0-129)
[2017-09-13 07:14] LABS: BASO % 0.7 % (0.0-2.0); EOS # 0.3 K/uL (0.0-0.7); EOS % 5.5 % (0.0-4.0); HEMOGLOBIN 12.3 g/dL (12.0-18.0); LYMPH # 1.2 K/uL (1.0-4.3); LYMPH % 20.7 % (20.0-40.0); MEAN CELL VOLUME 95.6 fL (80.0-94.0); MEAN CORPUSCULAR HGB CONC 34.5 g/dL (33.0-37.0); MEAN PLATELET VOLUME 9.2 fL (7.2-11.7); MONO # 0.6 K/uL (0.0-0.8); MONO % 9.6 % (0.0-10.0); NEUT # 3.7 K/uL (1.8-7.0); NEUT % 63.5 % (50.0-75.0); RBC 3.74 Mil/uL (4.40-5.90); RED CELL DISTRIBUTION WIDTH 13.6 % (11.5-14.5); WHITE BLOOD COUNT 5.8 K/uL (4.8-10.8)
[2017-09-13] MEDS ORDERED: Enoxaparin 80 mg Syringe SC SCH (07:15)
--- NOTE | 2017-09-13 08:12 | CP.PCM.PN ---
<Heriberto Rodriguez - Last Filed: 09/13/17 14:47> Subjective - Date & Time of Evaluation Date of Evaluation: 09/13/17 Time of Evaluation: 06:50 - Subjective Subjective: PGY5 GI Fellow Progress Note Patient seen and examined bedside this morning. Student doctor Lg assisted with Nery translation. Patient states he has improvement in left sided chest pain, though still present with deep inspiration. SOB slightly improved. Continues to have epigastric discomfort. 12 system ROS performed and negative except where stated. Objective - Vital Signs/Intake and Output Vital Signs (last 24 hours): Temp Pulse Resp BP Pulse Ox 97.5 F L 64 20 101/49 L 96 09/12/17 23:10 09/12/17 23:10 09/12/17 23:10 09/12/17 23:10 09/13/17 04:29 Intake and Output: 09/13/17 09/13/17 06:59 18:59 Intake Total 518 Balance 518 - Medications Medications: Current Medications Apixaban (Eliquis) 10 mg PO BID [facility] Last Admin: 09/13/17 06:32 Dose: Not Given Aspirin (Ecotrin) 81 mg PO DAILY [facility] Last Admin: 09/12/17 15:03 Dose: 81 mg Carvedilol (Coreg) 3.125 mg PO BID [facility] Last Admin: 09/12/17 19:00 Dose: 3.125 mg Enoxaparin Sodium (Lovenox) 80 mg SC Q12H [facility] Last Admin: 09/13/17 07:29 Dose: 80 mg Ergocalciferol (Drisdol 50,000 Intl Units Cap) 1 cap PO QWK [facility] Lisinopril (Zestril) 2.5 mg PO DAILY [facility] Last Admin: 09/12/17 17:10 Dose: 2.5 mg Pantoprazole Sodium (Protonix Inj) 40 mg IVP Q12H [facility] Last Admin: 09/12/17 23:35 Dose: 40 mg Pneumococcal Polyvalent Vaccine (Pneumovax 23 Vaccine) 0.5 ml IM .ONCE ONE Stop: 09/14/17 10:01 Rosuvastatin Calcium (Crestor) 10 mg PO HS [facility] Last Admin: 09/12/17 21:15 Dose: 10 mg Spironolactone (Aldactone) 25 mg PO BID [facility] Last Admin: 09/12/17 17:11 Dose: 25 mg Ticagrelor (Brilinta) 90 mg PO BID [facility] Last Admin: 09/12/17 17:10 Dose: 90 mg Vitamin B Complex/Folic Acid (Berroca) 1 tab PO DAILY [facility] - Labs Labs: 09/13/17 06:18 09/13/17 06:18 PT 11.9 SECONDS (9.7-12.2) 09/12/17 09:05 INR 1.0 09/12/17 09:05 APTT 33 SECONDS (21-34) 09/12/17 09:05 - Constitutional Appears: Non-toxic, No Acute Distress - Eye Exam Eye Exam: EOMI, PERRL - ENT Exam ENT Exam: Mucous Membranes Moist - Respiratory Exam Respiratory Exam: Clear to Ausculation Bilateral. absent: Rales, Rhonchi, Wheezes - Cardiovascular Exam Cardiovascular Exam: RRR, +S1, +S2 - GI/Abdominal Exam GI & Abdominal Exam: Soft, Normal Bowel Sounds. absent: Distended, Firm, Guarding, Rigid, Tenderness, Organomegaly - Extremities Exam Extremities Exam: Normal Inspection. absent: Pedal Edema - Neurological Exam Neurological Exam: Alert, Awake, Oriented x3 - Psychiatric Exam Psychiatric exam: Normal Affect, Normal Mood - Skin Skin Exam: Dry, Warm Additional comments: vitiligo Assessment and Plan - Assessment and Plan (Free Text) Assessment: Patient is a 72yo male with PMHx significant for CAD s/p PCIx2, vitiligo who presented to the ED brought in by ambulance for complaint of chest pain and shortness of breath. -Pulmonary embolism -Paroxysmal atrial fibrillation with RVR, now NSR -CAD s/p PCI on ASA, Brilinta -Periumbilical abdominal pain, dyspepsia -Unintentional weight loss Plan: -Found to have pulmonary embolism on CT chest -Recommend treatment of acute condition given finding of right heart strain on chest CT as well -PAF resolved, NSR at this time -Pt will need ongoing cardiac work up, tx for PE -Eliquis ordered, on ASA/Brilinta from home for h/o CAD -No active GI bleeding noted at this time -Protonix 40mg IV BID -Will benefit from EGD when medically optimized, following resolution of acute PE and cardiac issues <Alexandre Mack - Last Filed: 09/13/17 17:16> Objective - Vital Signs/Intake and Output Vital Signs (last 24 hours): Temp Pulse Resp BP Pulse Ox 97.9 F 60 20 107/60 98 09/13/17 15:35 09/13/17 15:35 09/13/17 15:35 09/13/17 15:35 09/13/17 15:35 Intake and Output: 09/13/17 09/13/17 06:59 18:59 Intake Total 518 Balance 518 - Medications Medications: Current Medications Apixaban (Eliquis) 10 mg PO BID [facility] Stop: 09/20/17 10:01 Last Admin: 09/13/17 13:05 Dose: 10 mg Aspirin (Ecotrin) 81 mg PO DAILY [facility] Last Admin: 09/13/17 09:29 Dose: 81 mg Carvedilol (Coreg) 3.125 mg PO BID [facility] Last Admin: 09/13/17 09:32 Dose: 3.125 mg Ergocalciferol (Drisdol 50,000 Intl Units Cap) 1 cap PO QWK [facility] Lisinopril (Zestril) 2.5 mg PO DAILY [facility] Last Admin: 09/13/17 09:29 Dose: 2.5 mg Pantoprazole Sodium (Protonix Inj) 40 mg IVP Q12H [facility] Last Admin: 09/13/17 13:05 Dose: 40 mg Pneumococcal Polyvalent Vaccine (Pneumovax 23 Vaccine) 0.5 ml IM .ONCE ONE Stop: 09/14/17 10:01 Rosuvastatin Calcium (Crestor) 10 mg PO HS [facility] Last Admin: 09/12/17 21:15 Dose: 10 mg Ticagrelor (Brilinta) 90 mg PO BID [facility] Last Admin: 09/13/17 09:29 Dose: 90 mg Vitamin B Complex/Folic Acid (Berroca) 1 tab PO DAILY [facility] Last Admin: 09/13/17 09:29 Dose: 1 tab - Labs Labs: 09/13/17 06:18 09/13/17 06:18 PT 13.4 SECONDS (9.7-12.2) H 09/13/17 11:33 INR 1.2 09/13/17 11:33 APTT 33 SECONDS (21-34) 09/12/17 09:05 Attending/Attestation - Attestation I have personally seen and examined this patient.: Yes I have fully participated in the care of the patient.: Yes I have reviewed all pertinent clinical information, including history, physical exam and plan: Yes Notes (Text): 09/13/17 17:15 72 year old male with h/o CAD admitted with CP/SOB found to have PE. No overt signs of GI bleeding. Normal hemoglobin. No abdominal pain. OB positive noted, but not a contraindication to anticoagulation. Recommend outpatient egd/colon after PE/acute issues resolve. WIll sign off.
--- NOTE | 2017-09-13 08:26 | CP.PCM.CON ---
History of Present Illness - History of Present Illness History of Present Illness: I was asked to evaluate patient by Dr Curtis. Patient known to me fro office practive. Patient is a 72 year old male with PMH HTN, CAD s/p IA, stent LAD with MELL ( December 2016), subsequent improvement in LV function, who presents with chest pain. the patient states symptoms began the moprnng of admission, central in nature, with associated dyspnea. he presented to [facility] and was found to be in atrial fibrillation. He was given cardizem. The patient had an elevated D-dimer, and CT scan revealed a PE. The patient was started on Eliqius. he is maintained on Brilinta 90 mg BID and ASA post PCI. Review of Systems - Constitutional Constitutional: absent: As Per HPI, Anorexia, Chills, Daytime Sleepiness, Excessive Sweating, Fatigue, Fever, Frequent Falls, Headache, Increased Appetite , Lethargy, Malaise, Night Sweats, Snoring, Sleep Apnea, Weight Gain, Weight Loss, Weakness, Other - EENT Eyes: absent: As Per HPI, Blind Spots, Blurred Vision, Change in Vision, Decreased Night Vision, Diplopia, Discharge, Dry Eye, Exophthalmos, Floaters, Irritation, Itchy Eyes, Loss of Peripheral Vision, Pain, Photophobia, Requires Corrective Lenses, Sees Flashes, Spots in Vision, Tunnel Vision, Other Visual Disturbances, Loss of Vision, Other Ears: absent: As Per HPI, Decreased Hearing, Ear Discharge, Ear Pain, Tinnitus, Abnormal Hearing, Disequilibrium, Dizziness, Other Nose/Mouth/Throat: absent: As Per HPI, Epistaxis, Nasal Congestion, Nasal Discharge, Nasal Obstruction, Nasal Trauma, Nose Pain, Post Nasal Drip, Sinus Pain, Sinus Pressure, Bleeding Gums, Change in Voice, Dental Pain, Dry Mouth, Dysphagia, Halitosis, Hoarsness, Lip Swelling, Mouth Lesions, Mouth Pain, Odynophagia, Sore Throat, Throat Swelling, Tongue Swelling, Facial Pain, Neck Pain, Neck Mass, Other - Cardiovascular Cardiovascular: Chest Pain - Respiratory Respiratory: Dyspnea - Gastrointestinal Gastrointestinal: absent: As Per HPI, Abdominal Pain, Belching, Bloating, Change in Bowel Habits, Change in Stool Character, Coffee Ground Emesis, Constipation, Cramping, Diarrhea, Dyspepsia, Dysphagia, Early Satiety, Excessive Flatus, Fecal Incontinence, Heartburn, Hematemesis, Hematochezia, Loose Stools, Melena, Nausea, Odynophagia, Temesmus, Vomiting, Other - Genitourinary Genitourinary: absent: As Per HPI, Change in Urinary Stream, Difficulty Urinating, Dysuria, Flank Pain, Hematuria, Pyuria, Nocturia, Urinary Incontinence, Urinary Frequency, Urinary Hesitance, Urinary Urgency, Voiding Freq/Small Amts, Freq UTI, Hx Renal/Bladder Calculi, Hx /Renal Surgery, Bladder Distension, Other - Musculoskeletal Musculoskeletal: absent: As Per HPI, Abnormal Gait, Arthralgias, Atrophy, Back Pain, Deformity, Joint Swelling, Limited Range of Motion, Loss of Height, Muscle Cramps, Muscle Weakness, Myalgias, Neck Pain, Numbness, Radiating Pain into Limb, Stiffness, Tingling, Other - Integumentary Integumentary: absent: As Per HPI, Acne, Alopecia, Bleeding Lesions, Change in Hair, Change in Nails, Change in Pigmentation, Changing Lesions, Dry Skin, Erythema, Furuncle, Hirsutism, Lesions, New Lesions, Non-Healing Lesions, Photosensitivity, Pruritus, Rash, Skin Pain, Skin Ulcer, Sores, Striae, Swelling , Unusual Bruising, Wounds, Jaundice, Other - Neurological Neurological: absent: As Per HPI, Abnormal Gait, Abnormal Hearing, Abnormal Movements, Abnormal Speech, Behavioral Changes, Burning Sensations, Confusion, Convulsions, Disequilibrium, Dizziness, Numbness, Focal Weakness, Frequent Falls , Headaches, Lack of Coordination, Loss of Vision, Memory Loss, Paresthesias, Radicular Pain, Restless Legs, Sensory Deficit, Syncope, Tingling, Tremor, Vertigo, Weakness, Other Visual Disturbances, Other - Psychiatric Psychiatric: absent: As Per HPI, Abnormal Sleep Pattern, Anhedonia, Anxiety, Auditory Hallucinations, Behavioral Changes, Change in Appetite, Change in Libido, Confusion, Depression, Difficulty Concentrating, Hallucinations, Homicidal Ideation, Hopelessness, Irritability, Memory Loss, Mood Swings, Panic Attacks, Paranoia, Suicidal Ideation, Visual Hallucinations, Tactile Hallucinations, Other - Endocrine Endocrine: absent: As Per HPI, Change in Body Appearance, Change in Libido, Cold Intolorance, Deepening of Voice, Excessive Sweating, Fatigue, Flushing, Heat Intolorance, Increase in Ring/Shoe/Hat Size, Palpitations, Polydipsia, Polyphagia, Polyuria, Other - Hematologic/Lymphatic Hematologic: absent: As Per HPI, Easy Bleeding, Easy Bruising, Lymphadenopathy, Other Past Patient History - Infectious Disease Hx of Infectious Diseases: None - Past Medical History & Family History Past Medical History?: Yes - Past Social History Smoking Status: Never Smoked - CARDIAC Hx Hypercholesterolemia: Yes Hx Hypertension: Yes - PULMONARY Hx Respiratory Disorders: No - NEUROLOGICAL Hx Neurological Disorder: No - HEENT Hx HEENT Problems: No - RENAL Hx Chronic Kidney Disease: No - ENDOCRINE/METABOLIC Hx Endocrine Disorders: No - HEMATOLOGICAL/ONCOLOGICAL Hx Blood Disorders: No - INTEGUMENTARY Hx Dermatological Problems: Yes Other/Comment: PT HAS VITILIAGO - MUSCULOSKELETAL/RHEUMATOLOGICAL Hx Falls: No - GASTROINTESTINAL Hx Gastrointestinal Disorders: No - GENITOURINARY/GYNECOLOGICAL Hx Genitourinary Disorders: No - PSYCHIATRIC Hx Substance Use: No - SURGICAL HISTORY Hx Coronary Stent: Yes - ANESTHESIA Hx Anesthesia: Yes Hx Anesthesia Reactions: (UNKNOWN) Hx Malignant Hyperthermia: (UNKNOWN) Meds Allergies/Adverse Reactions: Allergies Allergy/AdvReac Type Severity Reaction Status Date / Time No Known Allergies Allergy Verified 09/12/17 08:42 - Medications Medications: Current Medications Apixaban (Eliquis) 10 mg PO BID [facility] Last Admin: 09/13/17 06:32 Dose: Not Given Aspirin (Ecotrin) 81 mg PO DAILY [facility] Last Admin: 09/12/17 15:03 Dose: 81 mg Carvedilol (Coreg) 3.125 mg PO BID [facility] Last Admin: 09/12/17 19:00 Dose: 3.125 mg Ergocalciferol (Drisdol 50,000 Intl Units Cap) 1 cap PO QWK [facility] Lisinopril (Zestril) 2.5 mg PO DAILY [facility] Last Admin: 09/12/17 17:10 Dose: 2.5 mg Pantoprazole Sodium (Protonix Inj) 40 mg IVP Q12H [facility] Last Admin: 09/12/17 23:35 Dose: 40 mg Pneumococcal Polyvalent Vaccine (Pneumovax 23 Vaccine) 0.5 ml IM .ONCE ONE Stop: 09/14/17 10:01 Rosuvastatin Calcium (Crestor) 10 mg PO HS [facility] Last Admin: 09/12/17 21:15 Dose: 10 mg Ticagrelor (Brilinta) 90 mg PO BID [facility] Last Admin: 09/12/17 17:10 Dose: 90 mg Vitamin B Complex/Folic Acid (Berroca) 1 tab PO DAILY [facility] Physical Exam - Constitutional Appears: Non-toxic - Head Exam Head Exam: NORMAL INSPECTION - Eye Exam Eye Exam: Normal appearance - ENT Exam ENT Exam: Mucous Membranes Moist - Neck Exam Neck exam: Positive for: Full Rom - Respiratory Exam Respiratory Exam: NORMAL BREATHING PATTERN. absent: Decreased Breath Sounds - Cardiovascular Exam Cardiovascular Exam: REGULAR RHYTHM - GI/Abdominal Exam GI & Abdominal Exam: Normal Bowel Sounds - Rectal Exam Rectal Exam: Deferred - Extremities Exam Extremities exam: Negative for: pedal edema - Back Exam Back exam: NORMAL INSPECTION - Neurological Exam Neurological exam: Alert, Oriented x3 - Psychiatric Exam Psychiatric exam: Normal Affect - Skin Additional comments: Vitiligo Results - Vital Signs Recent Vital Signs: Last Vital Signs Temp 97.5 F L 09/12/17 23:10 Pulse 64 09/12/17 23:10 Resp 20 09/12/17 23:10 BP 101/49 L 09/12/17 23:10 Pulse Ox 96 09/13/17 04:29 - Labs Result Diagrams: 09/13/17 06:18 09/13/17 06:18 Labs: Laboratory Results - last 24 hr 09/12/17 09/12/17 09/12/17 09:05 09:05 09:05 WBC 7.0 RBC 4.48 Hgb 14.7 D Hct 43.5 MCV 97.1 H MCH 32.8 H MCHC 33.8 RDW 13.6 Plt Count 169 MPV 9.2 Neut % (Auto) 71.4 Lymph % (Auto) 15.1 L Traverse % (Auto) 9.4 Eos % (Auto) 3.4 Baso % (Auto) 0.7 Neut # (Auto) 5.0 Lymph # (Auto) 1.1 Traverse # (Auto) 0.7 Eos # (Auto) 0.2 Baso # (Auto) 0.0 PT 11.9 INR 1.0 APTT 33 D-Dimer, Quantitative Sodium 142 Potassium 3.2 L Chloride 103 Carbon Dioxide 26 Anion Gap 16 BUN 18 Creatinine 1.0 Est GFR ( Amer) > 60 Est GFR (Non-Af Amer) > 60 Random Glucose 106 Hemoglobin A1c Calcium 9.7 Magnesium Total Bilirubin 1.5 H AST 35 ALT 18 L D Alkaline Phosphatase 87 Total Creatine Kinase CK-MB (Mass) Troponin I < 0.0120 NT-Pro-B Natriuret Pep 330 Total Protein 8.1 Albumin 4.2 Globulin 3.8 Albumin/Globulin Ratio 1.1 Triglycerides Cholesterol LDL Cholesterol Direct HDL Cholesterol Free T4 TSH 3rd Generation Stool Occult Blood Theophylline 09/12/17 09/12/17 09/12/17 15:23 16:29 16:29 WBC RBC Hgb Hct MCV MCH MCHC RDW Plt Count MPV Neut % (Auto) Lymph % (Auto) Traverse % (Auto) Eos % (Auto) Baso % (Auto) Neut # (Auto) Lymph # (Auto) Traverse # (Auto) Eos # (Auto) Baso # (Auto) PT INR APTT D-Dimer, Quantitative 296 H Sodium Potassium Chloride Carbon Dioxide Anion Gap BUN Creatinine Est GFR ( Amer) Est GFR (Non-Af Amer) Random Glucose Hemoglobin A1c Calcium Magnesium 1.6 Total Bilirubin AST ALT Alkaline Phosphatase Total Creatine Kinase 22 L CK-MB (Mass) 0.89 Troponin I 0.0300 NT-Pro-B Natriuret Pep Total Protein Albumin Globulin Albumin/Globulin Ratio Triglycerides Cholesterol LDL Cholesterol Direct HDL Cholesterol Free T4 TSH 3rd Generation 0.97 Stool Occult Blood Theophylline 09/12/17 09/12/17 09/12/17 16:29 16:29 22:43 WBC 6.1 RBC 3.94 L Hgb 13.0 Hct 37.4 MCV 94.9 H D MCH 33.0 H MCHC 34.8 RDW 13.6 Plt Count 144 MPV 8.6 Neut % (Auto) Lymph % (Auto) Traverse % (Auto) Eos % (Auto) Baso % (Auto) Neut # (Auto) Lymph # (Auto) Traverse # (Auto) Eos # (Auto) Baso # (Auto) PT INR APTT D-Dimer, Quantitative Sodium Potassium Chloride Carbon Dioxide Anion Gap BUN Creatinine Est GFR ( Amer) Est GFR (Non-Af Amer) Random Glucose Hemoglobin A1c Calcium Magnesium Total Bilirubin AST ALT Alkaline Phosphatase Total Creatine Kinase CK-MB (Mass) Troponin I NT-Pro-B Natriuret Pep Total Protein Albumin Globulin Albumin/Globulin Ratio Triglycerides Cholesterol LDL Cholesterol Direct HDL Cholesterol Free T4 1.62 TSH 3rd Generation Stool Occult Blood Positive H Theophylline 09/12/17 09/13/17 09/13/17 23:38 06:18 06:18 WBC 5.8 RBC 3.74 L Hgb 12.3 Hct 35.8 MCV 95.6 H MCH 33.0 H MCHC 34.5 RDW 13.6 Plt Count 129 L MPV 9.2 Neut % (Auto) 63.5 Lymph % (Auto) 20.7 Traverse % (Auto) 9.6 Eos % (Auto) 5.5 H Baso % (Auto) 0.7 Neut # (Auto) 3.7 Lymph # (Auto) 1.2 Traverse # (Auto) 0.6 Eos # (Auto) 0.3 Baso # (Auto) 0.0 PT INR APTT D-Dimer, Quantitative Sodium Potassium Chloride Carbon Dioxide Anion Gap BUN Creatinine Est GFR ( Amer) Est GFR (Non-Af Amer) Random Glucose Hemoglobin A1c Calcium Magnesium Total Bilirubin AST ALT Alkaline Phosphatase Total Creatine Kinase 38 L CK-MB (Mass) 0.85 Troponin I < 0.0120 NT-Pro-B Natriuret Pep Total Protein Albumin Globulin Albumin/Globulin Ratio Triglycerides Cholesterol LDL Cholesterol Direct HDL Cholesterol Free T4 TSH 3rd Generation Stool Occult Blood Theophylline 5.8 L 09/13/17 03 06:18 06:18 WBC RBC Hgb Hct MCV MCH MCHC RDW Plt Count MPV Neut % (Auto) Lymph % (Auto) Traverse % (Auto) Eos % (Auto) Baso % (Auto) Neut # (Auto) Lymph # (Auto) Traverse # (Auto) Eos # (Auto) Baso # (Auto) PT INR APTT D-Dimer, Quantitative Sodium 135 Potassium 3.4 L Chloride 101 Carbon Dioxide 26 Anion Gap 12 BUN 14 Creatinine 0.8 Est GFR ( Amer) > 60 Est GFR (Non-Af Amer) > 60 Random Glucose 93 Hemoglobin A1c 5.6 Calcium 8.5 L Magnesium Total Bilirubin 1.9 H AST 21 ALT 24 Alkaline Phosphatase 60 Total Creatine Kinase CK-MB (Mass) Troponin I NT-Pro-B Natriuret Pep Total Protein 6.2 L Albumin 3.2 L D Globulin 3.0 Albumin/Globulin Ratio 1.1 Triglycerides 74 Cholesterol 97 LDL Cholesterol Direct 34 HDL Cholesterol 42 Free T4 TSH 3rd Generation Stool Occult Blood Theophylline - EKG Data EKG Interpreted by: Myself EKG shows normal: Sinus rhythm Assessment & Plan (1) HTN (hypertension) Assessment and Plan: medical therapy Status: Acute (2) CAD (coronary artery disease) Assessment and Plan: continue ASA/Brilinta Status: Acute (3) Pulmonary embolism Assessment and Plan: agree with Eliquis Status: Acute (4) Atrial fibrillation Assessment and Plan: transinet and likely due to PE. continue Eliquis Status: Acute
--- NOTE | 2017-09-13 09:57 | CP.PCM.CON ---
History of Present Illness - History of Present Illness History of Present Illness: Pulmonary consult; covering Dr Dacosta Reason for consult: pe, right heart strain This patient was seen and examined at bedside, medical records reviewed, and management issues were discussed and formulated with the house staff. Mr Dominguez is a 72 year old male with PMHx of STEMI, CAD, COPD, bronchiectasis, HLD, GERD, vitiligo. The patient presented to the ED on 09/12 for evaluation of sudden onset chest pain that started this morning, associated with shortness of breath. Found to be in Afib, was given Cardizem 2mg for rate control EKG showed RBBB, left axis deviation, Afib with slow ventricular response and premature ventricular or aberrantly conducted complexes On admission, D-dimer 296 CTA chest with intravenous contrast 09/13: Left-sided pulmonary emboli, involving the central and left lower lobe pulmonary arteries. Findings suspicious for associated right heart strain. Patient complains of dyspnea on exertion and chest pain. Pain is 2-3/10 currently. States he gets short of breath when he walks or starts moving around. Denies fever/chills, cough, hemoptysis, wheezing. On exam, lungs clear to auscultation bilaterally, no wheeze/rales/rhonchi Also complains of dark stool for 7-10 days prior to admission. Patient has been evaluated by GI and cardiology as well as pulmonary for management of acute pulmonary embolism in the setting of dark stool with high suspicion of GI bleeding On evaluation, patient looks comfortable, hemodynamically stable, with adequate saturation Review of Systems - Constitutional Constitutional: absent: Chills, Fever, Frequent Falls, Night Sweats - Cardiovascular Cardiovascular: absent: Chest Pain, Chest Pain at Rest, Chest Pain with Activity , Claudication, Diaphoresis, Dyspnea on Exertion, Edema - Respiratory Respiratory: Cough, Dyspnea, Dyspnea on Exertion. absent: Hemoptysis, Wheezing , Snoring, Stridor - Gastrointestinal Gastrointestinal: Heartburn. absent: Abdominal Pain, Hematochezia, Melena, Nausea, Vomiting Past Patient History - Infectious Disease Hx of Infectious Diseases: None - Past Medical History & Family History Past Medical History?: Yes - Past Social History Smoking Status: Never Smoked - CARDIAC Hx Hypercholesterolemia: Yes Hx Hypertension: Yes - PULMONARY Hx Respiratory Disorders: No - NEUROLOGICAL Hx Neurological Disorder: No - HEENT Hx HEENT Problems: No - RENAL Hx Chronic Kidney Disease: No - ENDOCRINE/METABOLIC Hx Endocrine Disorders: No - HEMATOLOGICAL/ONCOLOGICAL Hx Blood Disorders: No - INTEGUMENTARY Hx Dermatological Problems: Yes Other/Comment: PT HAS VITILIAGO - MUSCULOSKELETAL/RHEUMATOLOGICAL Hx Falls: No - GASTROINTESTINAL Hx Gastrointestinal Disorders: No - GENITOURINARY/GYNECOLOGICAL Hx Genitourinary Disorders: No - PSYCHIATRIC Hx Substance Use: No - SURGICAL HISTORY Hx Coronary Stent: Yes - ANESTHESIA Hx Anesthesia: Yes Hx Anesthesia Reactions: (UNKNOWN) Hx Malignant Hyperthermia: (UNKNOWN) Meds Allergies/Adverse Reactions: Allergies Allergy/AdvReac Type Severity Reaction Status Date / Time No Known Allergies Allergy Verified 09/12/17 08:42 - Medications Medications: Current Medications Apixaban (Eliquis) 10 mg PO BID [facility] Stop: 09/20/17 10:01 Aspirin (Ecotrin) 81 mg PO DAILY [facility] Last Admin: 09/13/17 09:29 Dose: 81 mg Carvedilol (Coreg) 3.125 mg PO BID [facility] Last Admin: 09/13/17 09:32 Dose: 3.125 mg Ergocalciferol (Drisdol 50,000 Intl Units Cap) 1 cap PO QWK [facility] Lisinopril (Zestril) 2.5 mg PO DAILY [facility] Last Admin: 09/13/17 09:29 Dose: 2.5 mg Pantoprazole Sodium (Protonix Inj) 40 mg IVP Q12H [facility] Last Admin: 09/12/17 23:35 Dose: 40 mg Pneumococcal Polyvalent Vaccine (Pneumovax 23 Vaccine) 0.5 ml IM .ONCE ONE Stop: 09/14/17 10:01 Rosuvastatin Calcium (Crestor) 10 mg PO HS [facility] Last Admin: 09/12/17 21:15 Dose: 10 mg Ticagrelor (Brilinta) 90 mg PO BID [facility] Last Admin: 09/13/17 09:29 Dose: 90 mg Vitamin B Complex/Folic Acid (Berroca) 1 tab PO DAILY [facility] Last Admin: 09/13/17 09:29 Dose: 1 tab Physical Exam - Constitutional Appears: Well, Non-toxic, No Acute Distress - Head Exam Head Exam: ATRAUMATIC, NORMOCEPHALIC - Eye Exam Eye Exam: EOMI Pupil Exam: PERRL - ENT Exam ENT Exam: Mucous Membranes Moist - Neck Exam Neck exam: Positive for: Full Rom. Negative for: Lymphadenopathy, Tenderness - Respiratory Exam Respiratory Exam: Clear to Auscultation Bilateral, NORMAL BREATHING PATTERN. absent: Accessory Muscle Use, Chest Wall Tenderness, Decreased Breath Sounds, Prolonged Expiratory Phase, Rales, Rhonchi, Wheezes, Respiratory Distress, Stridor - Cardiovascular Exam Cardiovascular Exam: +S1, +S2. absent: Diastolic murmur, Systolic Murmur - GI/Abdominal Exam GI & Abdominal Exam: Normal Bowel Sounds, Soft. absent: Distended, Firm, Guarding, Tenderness - Extremities Exam Extremities exam: Positive for: normal inspection. Negative for: calf tenderness, pedal edema, tenderness - Neurological Exam Neurological exam: Alert, Oriented x3 Results - Vital Signs Recent Vital Signs: Last Vital Signs Temp 97.8 F 09/13/17 08:25 Pulse 63 09/13/17 08:25 Resp 20 09/13/17 08:25 BP 109/66 09/13/17 08:25 Pulse Ox 98 09/13/17 08:25 - Labs Result Diagrams: 09/13/17 06:18 09/13/17 06:18 Labs: Laboratory Results - last 24 hr 09/12/17 09/12/17 09/12/17 15:23 16:29 16:29 WBC RBC Hgb Hct MCV MCH MCHC RDW Plt Count MPV Neut % (Auto) Lymph % (Auto) Meade % (Auto) Eos % (Auto) Baso % (Auto) Neut # (Auto) Lymph # (Auto) Meade # (Auto) Eos # (Auto) Baso # (Auto) D-Dimer, Quantitative 296 H Sodium Potassium Chloride Carbon Dioxide Anion Gap BUN Creatinine Est GFR ( Amer) Est GFR (Non-Af Amer) Random Glucose Hemoglobin A1c Calcium Magnesium 1.6 Total Bilirubin AST ALT Alkaline Phosphatase Total Creatine Kinase 22 L CK-MB (Mass) 0.89 Troponin I 0.0300 Total Protein Albumin Globulin Albumin/Globulin Ratio Triglycerides Cholesterol LDL Cholesterol Direct HDL Cholesterol Free T4 TSH 3rd Generation 0.97 Stool Occult Blood Theophylline 09/12/17 09/12/17 09/12/17 16:29 16:29 22:43 WBC 6.1 RBC 3.94 L Hgb 13.0 Hct 37.4 MCV 94.9 H D MCH 33.0 H MCHC 34.8 RDW 13.6 Plt Count 144 MPV 8.6 Neut % (Auto) Lymph % (Auto) Meade % (Auto) Eos % (Auto) Baso % (Auto) Neut # (Auto) Lymph # (Auto) Meade # (Auto) Eos # (Auto) Baso # (Auto) D-Dimer, Quantitative Sodium Potassium Chloride Carbon Dioxide Anion Gap BUN Creatinine Est GFR ( Amer) Est GFR (Non-Af Amer) Random Glucose Hemoglobin A1c Calcium Magnesium Total Bilirubin AST ALT Alkaline Phosphatase Total Creatine Kinase CK-MB (Mass) Troponin I Total Protein Albumin Globulin Albumin/Globulin Ratio Triglycerides Cholesterol LDL Cholesterol Direct HDL Cholesterol Free T4 1.62 TSH 3rd Generation Stool Occult Blood Positive H Theophylline 09/12/17 09/13/17 09/13/17 23:38 06:18 06:18 WBC 5.8 RBC 3.74 L Hgb 12.3 Hct 35.8 MCV 95.6 H MCH 33.0 H MCHC 34.5 RDW 13.6 Plt Count 129 L MPV 9.2 Neut % (Auto) 63.5 Lymph % (Auto) 20.7 Meade % (Auto) 9.6 Eos % (Auto) 5.5 H Baso % (Auto) 0.7 Neut # (Auto) 3.7 Lymph # (Auto) 1.2 Meade # (Auto) 0.6 Eos # (Auto) 0.3 Baso # (Auto) 0.0 D-Dimer, Quantitative Sodium Potassium Chloride Carbon Dioxide Anion Gap BUN Creatinine Est GFR ( Amer) Est GFR (Non-Af Amer) Random Glucose Hemoglobin A1c Calcium Magnesium Total Bilirubin AST ALT Alkaline Phosphatase Total Creatine Kinase 38 L CK-MB (Mass) 0.85 Troponin I < 0.0120 Total Protein Albumin Globulin Albumin/Globulin Ratio Triglycerides Cholesterol LDL Cholesterol Direct HDL Cholesterol Free T4 TSH 3rd Generation Stool Occult Blood Theophylline 5.8 L 09/13/17 09/13/17 06:18 06:18 WBC RBC Hgb Hct MCV MCH MCHC RDW Plt Count MPV Neut % (Auto) Lymph % (Auto) Meade % (Auto) Eos % (Auto) Baso % (Auto) Neut # (Auto) Lymph # (Auto) Meade # (Auto) Eos # (Auto) Baso # (Auto) D-Dimer, Quantitative Sodium 135 Potassium 3.4 L Chloride 101 Carbon Dioxide 26 Anion Gap 12 BUN 14 Creatinine 0.8 Est GFR ( Amer) > 60 Est GFR (Non-Af Amer) > 60 Random Glucose 93 Hemoglobin A1c 5.6 Calcium 8.5 L Magnesium Total Bilirubin 1.9 H AST 21 ALT 24 Alkaline Phosphatase 60 Total Creatine Kinase CK-MB (Mass) Troponin I Total Protein 6.2 L Albumin 3.2 L D Globulin 3.0 Albumin/Globulin Ratio 1.1 Triglycerides 74 Cholesterol 97 LDL Cholesterol Direct 34 HDL Cholesterol 42 Free T4 TSH 3rd Generation Stool Occult Blood Theophylline Assessment & Plan (1) Acute saddle pulmonary embolism with acute cor pulmonale Status: Acute Comment: patient with acute left-sided pulmonary emboli, involving the central and left lower lobe pulmonary arteries. findings suspicious for associated right heart strain. Patient complains of dark stool, possibly secondary to GI bleed, however in the setting of main stem PE, I feel risk and benefits favor initiating anticoagulation and will follow hemoglobin closely. I agree for initiating anticoagulation with Eliquis. STAT echocardiogram, r/o pulmonary hypertension and right heart strain. bilateral lower extremity venous doppler. Will consider catheter-directed thrombolytics if worsening respiratory status or become hemodynamically unstable (2) Atrial fibrillation Status: Acute Comment: New onset atrial fibrillation in the setting of acute pulmonary embolism. Now back into sinus rhythm. STAT echo ordered. Management as per cardiology (3) CAD (coronary artery disease) Status: Acute (4) Chest pain Status: Acute (5) History of ST elevation myocardial infarction (STEMI) Status: Acute
[2017-09-13 11:54] LABS: INR 1.2; PROTHROMBIN TIME 13.4 SECONDS (9.7-12.2)
[2017-09-13] MEDS ORDERED: Potassium Chloride 20 mEq ER Tab PO ONE (13:26)
--- NOTE | 2017-09-13 13:26 | CP.PCM.PN ---
<PacoElise rossi - Last Filed: 09/13/17 15:45> Subjective - Date & Time of Evaluation Date of Evaluation: 09/13/17 Time of Evaluation: 13:00 - Subjective Subjective: Medicine Note for Hospitalist Service- Dr. Curtis Patient was seen and examined at bedside. 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 Patient updated with his current condition and our plan. Denied any fever, chills, headache, chest pain, sob, abdominal pain, n/v/d/c, or urinary symptoms. Objective - Vital Signs/Intake and Output Vital Signs (last 24 hours): Temp Pulse Resp BP Pulse Ox 97.8 F 63 20 109/66 98 09/13/17 08:25 09/13/17 08:25 09/13/17 08:25 09/13/17 08:25 09/13/17 08:25 Intake and Output: 09/13/17 09/13/17 06:59 18:59 Intake Total 518 Balance 518 - Medications Medications: Current Medications Apixaban (Eliquis) 10 mg PO BID [facility] Stop: 09/20/17 10:01 Last Admin: 09/13/17 13:05 Dose: 10 mg Aspirin (Ecotrin) 81 mg PO DAILY [facility] Last Admin: 09/13/17 09:29 Dose: 81 mg Carvedilol (Coreg) 3.125 mg PO BID [facility] Last Admin: 09/13/17 09:32 Dose: 3.125 mg Ergocalciferol (Drisdol 50,000 Intl Units Cap) 1 cap PO QWK [facility] Lisinopril (Zestril) 2.5 mg PO DAILY [facility] Last Admin: 09/13/17 09:29 Dose: 2.5 mg Pantoprazole Sodium (Protonix Inj) 40 mg IVP Q12H [facility] Last Admin: 09/13/17 13:05 Dose: 40 mg Pneumococcal Polyvalent Vaccine (Pneumovax 23 Vaccine) 0.5 ml IM .ONCE ONE Stop: 09/14/17 10:01 Potassium Chloride (K-Dur 20 Meq Er Tab) 40 meq PO ONCE ONE Stop: 09/13/17 13:27 Rosuvastatin Calcium (Crestor) 10 mg PO HS [facility] Last Admin: 09/12/17 21:15 Dose: 10 mg Ticagrelor (Brilinta) 90 mg PO BID [facility] Last Admin: 09/13/17 09:29 Dose: 90 mg Vitamin B Complex/Folic Acid (Berroca) 1 tab PO DAILY [facility] Last Admin: 09/13/17 09:29 Dose: 1 tab - Labs Labs: 09/13/17 06:18 09/13/17 06:18 PT 13.4 SECONDS (9.7-12.2) H 09/13/17 11:33 INR 1.2 09/13/17 11:33 APTT 33 SECONDS (21-34) 09/12/17 09:05 - Additional Findings Additional findings: - Constitutional Appears: Non-toxic, No Acute Distress - Head Exam Head Exam: ATRAUMATIC, NORMAL INSPECTION, NORMOCEPHALIC - Eye Exam Eye Exam: EOMI, PERRL - ENT Exam ENT Exam: Mucous Membranes Moist - Neck Exam Neck exam: Negative for: Lymphadenopathy, Thyromegaly Additional comments: No JVD - Respiratory Exam Respiratory Exam: Clear to Auscultation Bilateral, NORMAL BREATHING PATTERN. absent: Accessory Muscle Use, Rales, Rhonchi, Wheezes, Respiratory Distress - Cardiovascular Exam Cardiovascular Exam: Irregular Rhythm, +S1, +S2. absent: Bradycardia, Tachycardia, Diastolic murmur, Gallop, Rubs, +S4, Systolic Murmur - GI/Abdominal Exam GI & Abdominal Exam: Normal Bowel Sounds, Soft, Tenderness (b/l lower quadrants ). absent: Distended, Guarding - Extremities Exam Extremities exam: Positive for: normal inspection. Negative for: calf tenderness, pedal edema - Neurological Exam Neurological exam: Alert, Oriented x3 - Psychiatric Exam Psychiatric exam: Normal Affect, Normal Mood - Skin Skin Exam: Dry, Intact, Warm Additional comments: Vitiligo Assessment and Plan - Assessment and Plan (Free Text) Plan: Pulmonary Embolism Chest pain Cardiology consulted, Dr. Larkin, help appreciated Troponin negative x3 EKG: RBBB, left axis deviation, Afib with slow ventricular response and premature ventricular or aberrantly conducted complexes History of COPD and bronchiectasis D-dimer: 296 F/U hypercoagubility workup, PSA, ct ab and pelvis ( will order over weekend ) Imaging: CTA: Left-sided pulmonary emboli, involving the central and left lower lobe pulmonary arteries. Findings suspicious for associated right heart strain. Otherwise, no evidence of significant acute process. Incidental 7 mm pumonary nodule. See recommendations above. Marked chronic-appearing bronchiectatic and cystic changes in the left lung base. ECHO (12/2016)EF 56%, Grade 1 abnormal relaxation pattern Venous dopplers of upper and lower extremity - NEGATIVE for DVTs Meds: Started on Eliquis 10mg PO BID x 7 days; then Eliquis 5mg PO BID Atrial fibrillation Assessment and Plan: Cardiology consulted, Dr. Mixon, help appreciated Given cardizem 2mg in the field for rate control - currently rate controlled EKG: RBBB, left axis deviation, Afib with slow ventricular response and premature ventricular or aberrantly conducted complexes ESPINOZA VASC: 2 HAS BLED: 2 Thyroid studies - WNL Continue home carvedilol Diarrhea Assessment and Plan: GI consulted, Dr. Ramirez, help appreciated - EGD as outpatient Liquid diet - will advance as tolerated Complaining of dark tary stools * stool occult blood negative f/u giardia, H. pylori, C. Diff- negative, fecal leukocytes, ova and parasites, and stool cultures History of ST elevation myocardial infarction (STEMI) Assessment and Plan: Cardio consulted, Dr. Larkin, help appreciated Continue home meds: ASA, Coreg, lisinopril, crestor, spironolactone, Brilinta Hyperlipidemia Assessment and Plan: Lipid panel - WNL Crestor 10 mg PO HS Pulmonary Nodule Found incidentally on CTA. 7mm nodule LLL. Will need repeat CT Scan in 12 months Prophylactic measure Assessment and Plan: DVT: SCDs GI: Protonix DW Dr. Curtis, Elise Chen DO, PGY-1 <Marnie Curtis V - Last Filed: 09/13/17 16:36> Objective - Vital Signs/Intake and Output Vital Signs (last 24 hours): Temp Pulse Resp BP Pulse Ox 97.9 F 60 20 107/60 98 09/13/17 15:35 09/13/17 15:35 09/13/17 15:35 09/13/17 15:35 09/13/17 15:35 Intake and Output: 09/13/17 09/13/17 06:59 18:59 Intake Total 518 Balance 518 - Medications Medications: Current Medications Apixaban (Eliquis) 10 mg PO BID [facility] Stop: 09/20/17 10:01 Last Admin: 09/13/17 13:05 Dose: 10 mg Aspirin (Ecotrin) 81 mg PO DAILY [facility] Last Admin: 09/13/17 09:29 Dose: 81 mg Carvedilol (Coreg) 3.125 mg PO BID [facility] Last Admin: 09/13/17 09:32 Dose: 3.125 mg Ergocalciferol (Drisdol 50,000 Intl Units Cap) 1 cap PO QWK [facility] Lisinopril (Zestril) 2.5 mg PO DAILY [facility] Last Admin: 09/13/17 09:29 Dose: 2.5 mg Pantoprazole Sodium (Protonix Inj) 40 mg IVP Q12H [facility] Last Admin: 09/13/17 13:05 Dose: 40 mg Pneumococcal Polyvalent Vaccine (Pneumovax 23 Vaccine) 0.5 ml IM .ONCE ONE Stop: 09/14/17 10:01 Rosuvastatin Calcium (Crestor) 10 mg PO HS [facility] Last Admin: 09/12/17 21:15 Dose: 10 mg Ticagrelor (Brilinta) 90 mg PO BID [facility] Last Admin: 09/13/17 09:29 Dose: 90 mg Vitamin B Complex/Folic Acid (Berroca) 1 tab PO DAILY [facility] Last Admin: 09/13/17 09:29 Dose: 1 tab - Labs Labs: 09/13/17 06:18 09/13/17 06:18 PT 13.4 SECONDS (9.7-12.2) H 09/13/17 11:33 INR 1.2 09/13/17 11:33 APTT 33 SECONDS (21-34) 09/12/17 09:05 Attending/Attestation - Attestation I have personally seen and examined this patient.: Yes I have fully participated in the care of the patient.: Yes I have reviewed all pertinent clinical information, including history, physical exam and plan: Yes Notes (Text): Patient seen, examined, case discussed with medical and health services manager. With the assistance of [employer] and human performance professor, patient reports he is feeling better reports mild chest pain and mild shortness of breath. He reports he was visited both by air conditioning installer and print and pattern designer dose this morning. I did discuss with him the CT angiogram results showing pulmonary embolus. Cardio, GI, and pulmonary agreed to start anticoagulation for the patient. Patient started on a low-cholesterol milligram by mouth twice a day for 7 days. Patient ordered for hypercoagulability workup. Patient ordered for upper and lower extremity dopplers to rule out DVT. Patient reports he has not had any bowel movement today. Patient denies any abdominal pain. Resident has spoken with GI fellow for a regards to recommendation for EGD as outpatient. We will consider CT abdomen and pelvis by mouth and IV contrast tomorrow to prevent contrast-induced nephropathy since patient completed CT PE protocol earlier this morning. Assessment/Plan 1) Pulmonary Embolism Hx of Bronchestasis Hx of COPD Chest pain * Cardiology consulted, Dr. Larkin, help appreciated * Pulmonary, Dr Dacosta (Dr Parks) covering help appreciated * Troponin negative x3 * EKG: RBBB, left axis deviation, Afib with slow ventricular response and premature ventricular or aberrantly conducted complexes * History of COPD and bronchiectasis * D-dimer: 296 * CTA: Left-sided pulmonary emboli, involving the central and left lower lobe pulmonary arteries. Findings suspicious for associated right heart strain. Otherwise, no evidence of significant acute process. Incidental 7 mm pumonary nodule. See recommendations above. Marked chronic-appearing bronchiectatic and cystic changes in the left lung base. * F/U hypercoagubility workup, PSA, and will order CT ab and pelvis PO and IV contrast * ECHO (09/12/2017): Normal LV systolic function type I diastolic function mild aortic and mild mitral regurgitation. * Venous dopplers of upper and lower extremity - NEGATIVE for DVTs * Meds: * Started on Eliquis 10mg PO BID x 7 days; then Eliquis 5mg PO BID 2) New onset Atrial fibrillation Assessment and Plan: * Cardiology consulted, Dr. Mixon, help appreciated * Given cardizem 25 mg in the field for rate control - currently rate controlled * EKG: RBBB, left axis deviation, Afib with slow ventricular response and premature ventricular or aberrantly conducted complexes * ECHO (09/12/2017): Normal LV systolic function type I diastolic function mild aortic and mild mitral regurgitation. * ESPINOZA VASC: 2 * HAS BLED: 2 * Thyroid studies - WNL * Continue home carvedilol * Eliquis 10mg PO BID * Coreg 3.125 mg by mouth twice a day * Aspirin 81 mg by mouth daily 3) Diarrhea Assessment and Plan: * GI consulted, Dr. Ramirez, help appreciated - EGD as outpatient * Liquid diet - will advance as tolerated * Complaining of dark tary stools on admission. Rectal was performed at bedside who witnessed by patient's nurse no melena no masses appreciated. Patient has has had a recent colonoscopy 2 years which reported for internal hemorrhoids. Stool occult was positive. Will monitor H&H * Pending giardia, H. pylori, C. Diff- negative, fecal leukocytes, ova and parasites, and stool cultures. However since of 09/13/2017 patient has not had a bowel movement today and abdominal pain has resolved. 4) Coronary Artery Disease ME[facility] December 2016 Assessment and Plan: * Cardiology consulted, Dr. Larkin, help appreciated * Continue home meds: ASA 81 mg by mouth daily, Coreg 3.125 mg by mouth twice a day, lisinopril 2.5 mg by mouth daily, crestor 10 mg by mouth in the evening, [place], Brilinta 90 mg by mouth twice a day * ECHO (09/12/2017): Normal LV systolic function type I diastolic function mild aortic and mild mitral regurgitation * Troponin negative x3 5) Hyperlipidemia Assessment and Plan: * Lipid panel - WNL * Crestor 10 mg PO HS 6) Pulmonary Nodule * Pulmonary (Dr. Dacosta) Dr. Parks covering help appreciated * Found incidentally on CTA. 7mm nodule LLL. Will need repeat CT Scan in 12 months 7) Prophylactic measure Assessment and Plan: * DVT PPx: SCDs; Eliquis 10mg PO BID X7 days (Active 09/13/17) * GI: Protonix 40mg IV Q12H Disposition: Patient found to have PE started on Eliquis. Hypercoaguability workup in progress. Ct Abdomen and Pelvis PO and IV contrast to be ordered tomorrow to avoid contrast induced nephropathy.
--- NOTE | 2017-09-13 15:07 | VASCLAB ---
PROCEDURE: Lower Extremity Venous Duplex Exam. HISTORY: Leg swelling PRIORS: None. TECHNIQUE: Bilateral common femoral, femoral, popliteal and posterior tibial, peroneal and great saphenous veins were evaluated. Flow was assessed with color Doppler, compressibility, assessment of phasic flow and augmentation response. Report prepared by JEREMIE Martinez, RVT FINDINGS: RIGHT: 1. Common Femoral Vein: 1.1. Compressibility - Fully compressible: Thrombus - None : Flow - Phasic: Augmentation -Normal: Reflux - None. 2. Femoral Vein: 2.1. Compressibility - Fully compressible: Thrombus - None : Flow - Phasic: Augmentation -Normal: Reflux - None. 3. Popliteal Vein: 3.1. Compressibility - Fully compressible: Thrombus - None : Flow - Phasic: Augmentation -Normal: Reflux - None. 4. Posterior Tibial Vein: 4.1. Compressibility - Fully compressible: Thrombus - None: Flow - Phasic: Augmentation -Normal: Reflux - None. 5. Peroneal Vein: 5.1. Compressibility - Fully compressible: Thrombus - None: Flow - Phasic: Augmentation -Normal: Reflux - Severe. 6. Great Saphenous Vein: 6.1. Compressibility - Fully compressible: Thrombus - None: Flow - Phasic: Augmentation - Normal: Reflux - Severe. LEFT: 1. Common Femoral Vein: 1.1. Compressibility - Fully compressible: Thrombus - None: Flow - Phasic: Augmentation -Normal: Reflux - None. 2. Femoral Vein: 2.1. Compressibility - Fully compressible: Thrombus - None: Flow - Phasic: Augmentation -Normal: Reflux - None. 3. Popliteal Vein: 3.1. Compressibility - Fully compressible: Thrombus - None : Flow - Phasic: Augmentation -Normal: Reflux - None. 4. Posterior Tibial Vein: 4.1. Compressibility - Fully compressible: Thrombus - None: Flow - Phasic: Augmentation -Normal: Reflux - None. 5. Peroneal Vein: 5.1. Compressibility - Fully compressible: Thrombus - None: Flow - Phasic: Augmentation -Normal: Reflux - None. 6. Great Saphenous Vein: 6.1. Compressibility - Fully compressible: Thrombus - None: Flow - Phasic: Augmentation - Normal: Reflux - Severe. OTHER FINDINGS: Right: None significant. Left: None significant. IMPRESSION: Right: No evidence of deep or superficial vein thrombosis of the right lower extremity. Severe valvular incompetence of the right peroneal and greater saphenous veins. Left: No evidence of deep or superficial vein thrombosis of the left lower extremity. Severe valvular incompetence of the left greater saphenous vein.
--- NOTE | 2017-09-13 15:13 | VASCLAB ---
PROCEDURE: Upper Extremity Venous Duplex Exam HISTORY: Leg swelling PRIORS: None. TECHNIQUE: Bilateral upper extremity, internal jugular, subclavian, axillary, brachial, ulnar, radial, basilic and upper cephalic veins were evaluated. Flow was assessed with color Doppler, compressibility, assessment of phasic flow and augmentation response. Report prepared by Olman Sánchez, JEREMIE, RVT FINDINGS: RIGHT: 1. Internal Jugular: 1.1. Compressibility - Fully compressible: Thrombus - None : Flow - Phasic: Augmentation -Normal: Reflux - None. 2. Subclavian: 2.1. Compressibility - Fully compressible: Thrombus - None : Flow - Phasic: Augmentation -Normal: Reflux - None. 3. Axillary: 3.1. Compressibility - Fully compressible: Thrombus - None : Flow - Phasic: Augmentation -Normal: Reflux - None. 4. Brachial: 4.1. Compressibility - Fully compressible: Thrombus - None: Flow - Phasic: Augmentation -Normal: Reflux - None. 5. Ulnar: 5.1. Compressibility - Fully compressible: Thrombus - None: Flow - Phasic: Augmentation -Normal: Reflux - None. 6. Radial: 6.1. Compressibility - Fully compressible: Thrombus - None: Flow - Phasic: Augmentation - Normal: Reflux - None. 7. Cephalic: 7.1. Compressibility - Fully compressible: Thrombus - None: Flow - Phasic: Augmentation -Normal: Reflux - None. 8. Basilic: 8.1. Compressibility - Fully compressible: Thrombus - None: Flow - Phasic: Augmentation -Normal: Reflux - None. LEFT: 1. Internal Jugular: 1.1. Compressibility - Fully compressible: Thrombus - None : Flow - Phasic: Augmentation -Normal: Reflux - None. 2. Subclavian: 2.1. Compressibility - Fully compressible: Thrombus - None : Flow - Phasic: Augmentation -Normal: Reflux - None. 3. Axillary: 3.1. Compressibility - Fully compressible: Thrombus - None : Flow - Phasic: Augmentation -Normal: Reflux - None. 4. Brachial: 4.1. Compressibility - Fully compressible: Thrombus - None: Flow - Phasic: Augmentation -Normal: Reflux - None. 5. Ulnar: 5.1. Compressibility - Fully compressible: Thrombus - None: Flow - Phasic: Augmentation -Normal: Reflux - None. 6. Radial: 6.1. Compressibility - Fully compressible: Thrombus - None: Flow - Phasic: Augmentation - Normal: Reflux - None. 7. Cephalic: 7.1. Compressibility - Fully compressible: Thrombus - None: Flow - Phasic: Augmentation -Normal: Reflux - None. 8. Basilic: 8.1. Compressibility - Fully compressible: Thrombus - None: Flow - Phasic: Augmentation -Normal: Reflux - None. OTHER FINDINGS: Right: None. Left: None. IMPRESSION: Right: No evidence of vein thrombosis of the right upper extremity with excellent venous flow. Normal valve function noted of the right side. Left: No evidence of vein thrombosis of the left upper extremity with excellent venous flow. Normal valve function noted of the left side.
[2017-09-14 08:07] LABS: BASO % 0.9 % (0.0-2.0); EOS # 0.2 K/uL (0.0-0.7); EOS % 5.2 % (0.0-4.0); HEMOGLOBIN 13.1 g/dL (12.0-18.0); LYMPH # 0.9 K/uL (1.0-4.3); LYMPH % 21.9 % (20.0-40.0); MEAN CELL VOLUME 96.6 fL (80.0-94.0); MEAN CORPUSCULAR HEMOGLOBIN 33.6 pg (27.0-31.0); MEAN CORPUSCULAR HGB CONC 34.8 g/dL (33.0-37.0); MEAN PLATELET VOLUME 9.1 fL (7.2-11.7); MONO # 0.4 K/uL (0.0-0.8); MONO % 10.2 % (0.0-10.0); NEUT # 2.6 K/uL (1.8-7.0); NEUT % 61.8 % (50.0-75.0); NRBC % 0.1 % (0.0-2.0); RBC 3.88 Mil/uL (4.40-5.90); RED CELL DISTRIBUTION WIDTH 13.8 % (11.5-14.5); WHITE BLOOD COUNT 4.1 K/uL (4.8-10.8)
[2017-09-14 08:27] LABS: ALB/GLOB RATIO 1.1 (1.0-2.1); ALBUMIN 3.5 g/dL (3.5-5.0); ALT/SGPT 19 U/L (21-72); AST/SGOT 27 U/L (17-59); BLOOD UREA NITROGEN 12 mg/dL (9-20); CALCIUM 9.3 mg/dl (8.6-10.4); GFR AFRICAN-AMERICAN > 60; GFR NON-AFRICAN AMERICAN > 60; MAGNESIUM 1.7 mg/dL (1.6-2.3)
--- NOTE | 2017-09-14 09:00 | CARD ---
APPROVED REPORT EKG Measurement Heart [id number] <Conclusion> Normal sinus rhythm Right bundle branch block Abnormal ECG
[2017-09-14] MEDS ORDERED: Pneumococcal 23-Valent Vaccine IM ONE (10:00)
[2017-09-14] MEDS ORDERED: Influenza Vaccine 60 mcg/0.5 mL SYR (4YR UP) IM ONE (10:00)
[2017-09-14] MEDS ORDERED: Iohexol 240 (50 ml) PO ONE (11:00)
--- NOTE | 2017-09-14 12:08 | CP.PCM.PN ---
Subjective - Date & Time of Evaluation Date of Evaluation: 09/14/17 Time of Evaluation: 11:40 - Subjective Subjective: patient has no chest pain. less dyspnea Objective - Vital Signs/Intake and Output Vital Signs (last 24 hours): Temp Pulse Resp BP Pulse Ox 97.5 F L 62 65 H 97/68 L 97 09/14/17 08:11 09/14/17 08:22 09/14/17 11:06 09/14/17 11:06 09/14/17 08:11 - Medications Medications: Current Medications Apixaban (Eliquis) 10 mg PO BID [facility] Stop: 09/20/17 10:01 Last Admin: 09/14/17 09:09 Dose: 10 mg Aspirin (Ecotrin) 81 mg PO DAILY [facility] Last Admin: 09/14/17 09:09 Dose: 81 mg Carvedilol (Coreg) 3.125 mg PO BID [facility] Last Admin: 09/14/17 09:09 Dose: 3.125 mg Ergocalciferol (Drisdol 50,000 Intl Units Cap) 1 cap PO QWK [facility] Lisinopril (Zestril) 2.5 mg PO DAILY [facility] Last Admin: 09/14/17 11:05 Dose: Not Given Pantoprazole Sodium (Protonix Inj) 40 mg IVP Q12H [facility] Last Admin: 09/14/17 11:00 Dose: 40 mg Rosuvastatin Calcium (Crestor) 10 mg PO HS [facility] Last Admin: 09/13/17 22:33 Dose: 10 mg Ticagrelor (Brilinta) 90 mg PO BID [facility] Last Admin: 09/14/17 09:09 Dose: 90 mg Vitamin B Complex/Folic Acid (Berroca) 1 tab PO DAILY [facility] Last Admin: 09/14/17 09:08 Dose: 1 tab - Labs Labs: 09/14/17 07:58 09/14/17 07:58 PT 13.4 SECONDS (9.7-12.2) H 09/13/17 11:33 INR 1.2 09/13/17 11:33 APTT 33 SECONDS (21-34) 09/12/17 09:05 - Constitutional Appears: Non-toxic - Head Exam Head Exam: NORMAL INSPECTION - Eye Exam Eye Exam: Normal appearance - ENT Exam ENT Exam: Mucous Membranes Moist - Neck Exam Neck Exam: Full ROM - Respiratory Exam Respiratory Exam: NORMAL BREATHING PATTERN - Cardiovascular Exam Cardiovascular Exam: REGULAR RHYTHM - GI/Abdominal Exam GI & Abdominal Exam: Normal Bowel Sounds - Rectal Exam Rectal Exam: Deferred - Extremities Exam Extremities Exam: Pedal Edema - Back Exam Back Exam: NORMAL INSPECTION - Neurological Exam Neurological Exam: Alert - Psychiatric Exam Psychiatric exam: Normal Affect - Skin Skin Exam: Normal Color Assessment and Plan (1) HTN (hypertension) Assessment & Plan: well controlled Status: Acute (2) CAD (coronary artery disease) Assessment & Plan: continue ASA/Brilinta Status: Acute (3) Pulmonary embolism Assessment & Plan: on Eliquis Status: Acute (4) Atrial fibrillation Assessment & Plan: transietn. now in sinus rhythm Status: Acute
[2017-09-14] MEDS ORDERED: Iodixanol 320 MG/ML 100 ML BOTTLE IV ONE (13:36)
--- NOTE | 2017-09-14 14:36 | CT ---
PROCEDURE: CT Abdomen and Pelvis with contrast HISTORY: elevated d-dimer, suspicious for possible malignan COMPARISON: Correlation is made to CT angiography of the pulmonary arteries dated 09/13/2017. TECHNIQUE: Contrast dose: 100 mL Visipaque 320 Radiation dose: Total exam DLP = 556.6 mGy-cm. This CT exam was performed using one or more of the following dose reduction techniques: Automated exposure control, adjustment of the mA and/or kV according to patient size, and/or use of iterative reconstruction technique. FINDINGS: LOWER THORAX: Bronchiectatic and cystic changes in the left lung base redemonstrated. LIVER: Unremarkable. No gross lesion or ductal dilatation. GALLBLADDER AND BILE DUCTS: Unremarkable. PANCREAS: Unremarkable. No gross lesion or ductal dilatation. SPLEEN: Unremarkable. ADRENALS: Unremarkable. No mass. KIDNEYS AND URETERS: Unremarkable. No hydronephrosis. No solid mass. VASCULATURE: Unremarkable. No aortic aneurysm. BOWEL: Unremarkable. No obstruction. No gross mural thickening. APPENDIX: Not definitively visualized. PERITONEUM: Unremarkable. No free fluid. No free air. LYMPH NODES: Unremarkable. No enlarged lymph nodes. BLADDER: Unremarkable. REPRODUCTIVE: TURP defect. BONES: Spinal degenerative changes. No acute fracture. OTHER FINDINGS: None. IMPRESSION: No acute abdominal pelvic pathology. Incidental findings as above.
[2017-09-14 15:47] VITALS: BP 106/68; PULSE 70; RESP 20; TEMP 97.3; O2SAT 98
--- NOTE | 2017-09-14 15:51 | CP.PCM.DIS ---
<Jp Chena - Last Filed: 09/14/17 16:12> Provider - Provider Date of Admission: 09/13/17 16:00 Attending physician: Marnie Curtis DO Time Spent in preparation of Discharge (in minutes): 55 Hospital Course - Lab Results Lab Results: Most Recent Lab Values WBC 4.1 K/uL (4.8-10.8) L 09/14/17 07:58 RBC 3.88 Mil/uL (4.40-5.90) L 09/14/17 07:58 Hgb 13.1 g/dL (12.0-18.0) 09/14/17 07:58 Hct 37.5 % (35.0-51.0) 09/14/17 07:58 MCV 96.6 fL (80.0-94.0) H 09/14/17 07:58 MCH 33.6 pg (27.0-31.0) H 09/14/17 07:58 MCHC 34.8 g/dL (33.0-37.0) 09/14/17 07:58 RDW 13.8 % (11.5-14.5) 09/14/17 07:58 Plt Count 137 K/uL (130-400) 09/14/17 07:58 MPV 9.1 fL (7.2-11.7) 09/14/17 07:58 Neut % (Auto) 61.8 % (50.0-75.0) 09/14/17 07:58 Lymph % (Auto) 21.9 % (20.0-40.0) 09/14/17 07:58 [place] % (Auto) 10.2 % (0.0-10.0) H 09/14/17 07:58 Eos % (Auto) 5.2 % (0.0-4.0) H 09/14/17 07:58 Baso % (Auto) 0.9 % (0.0-2.0) 09/14/17 07:58 Neut # (Auto) 2.6 K/uL (1.8-7.0) 09/14/17 07:58 Lymph # (Auto) 0.9 K/uL (1.0-4.3) L 09/14/17 07:58 [place] # (Auto) 0.4 K/uL (0.0-0.8) 09/14/17 07:58 Eos # (Auto) 0.2 K/uL (0.0-0.7) 09/14/17 07:58 Baso # (Auto) 0.0 K/uL (0.0-0.2) 09/14/17 07:58 PT 13.4 SECONDS (9.7-12.2) H 09/13/17 11:33 INR 1.2 09/13/17 11:33 APTT 33 SECONDS (21-34) 09/12/17 09:05 D-Dimer, Quantitative 296 ng/mlDDU (0-243) H 09/12/17 16:29 Sodium 137 mmol/L (132-148) 09/14/17 07:58 Potassium 4.1 mmol/L (3.6-5.2) 09/14/17 07:58 Chloride 100 mmol/L (98-107) 09/14/17 07:58 Carbon Dioxide 27 mmol/L (22-30) 09/14/17 07:58 Anion Gap 14 (10-20) 09/14/17 07:58 BUN 12 mg/dL (9-20) 09/14/17 07:58 Creatinine 0.9 mg/dL (0.8-1.5) 09/14/17 07:58 Est GFR ( Amer) > 60 09/14/17 07:58 Est GFR (Non-Af Amer) > 60 09/14/17 07:58 Random Glucose 120 mg/dL (75-110) H 09/14/17 07:58 Hemoglobin A1c 5.6 % (4.2-6.5) 09/13/17 06:18 Calcium 9.3 mg/dl (8.6-10.4) 09/14/17 07:58 Phosphorus 2.2 mg/dL (2.5-4.5) L 09/14/17 07:58 Magnesium 1.7 mg/dL (1.6-2.3) 09/14/17 07:58 Total Bilirubin 2.4 mg/dL (0.2-1.3) H 09/14/17 07:58 AST 27 U/L (17-59) 09/14/17 07:58 ALT 19 U/L (21-72) L D 09/14/17 07:58 Alkaline Phosphatase 64 U/L (38-126) 09/14/17 07:58 Lactate Dehydrogenase 347 U/L (313-618) 09/14/17 07:58 Total Creatine Kinase 38 U/L (55-170) L 09/12/17 23:38 CK-MB (Mass) 0.85 ng/mL (0.0-3.38) 09/12/17 23:38 Troponin I < 0.0120 ng/mL (0.00-0.120) 09/12/17 23:38 NT-Pro-B Natriuret Pep 330 pg/mL (0-900) 09/12/17 09:05 Total Protein 6.7 g/dL (6.3-8.3) 09/14/17 07:58 Albumin 3.5 g/dL (3.5-5.0) 09/14/17 07:58 Globulin 3.2 gm/dL (2.2-3.9) 09/14/17 07:58 Albumin/Globulin Ratio 1.1 (1.0-2.1) 09/14/17 07:58 Triglycerides 74 mg/dL (0-149) 09/13/17 06:18 Cholesterol 97 mg/dL (0-199) 09/13/17 06:18 LDL Cholesterol Direct 34 mg/dL (0-129) 09/13/17 06:18 HDL Cholesterol 42 mg/dL (30-70) 09/13/17 06:18 Prostate Specific Ag 0.360 ng/mL (0.00-4.0) 09/14/17 07:58 Homocysteine 20.9 umol/L (6.6-14.8) H 09/13/17 06:18 Free T4 1.62 ng/dL (0.78-2.19) 09/12/17 16:29 TSH 3rd Generation 0.97 mIU/L (0.46-4.68) 09/12/17 16:29 Stool Occult Blood Positive (NEGATIVE) H 09/12/17 22:43 Stool H. pylori Ag Not detected (Not Detected) 09/12/17 14:41 Theophylline 5.8 ug/ml (10-20) L 09/13/17 06:18 C. difficile Ag & Toxin Negative (NEGATIVE) 09/12/17 06:00 H. pylori Source Stool 09/12/17 14:41 - Hospital Course Hospital Course: Upon Admission: Patient is a 72 y/o male with past medical history of STEMI, CAD, COPD, bronchiectasis, HLD, GERD, and vitiligo, who presents to the ED with chest pain. Pt. states the chest pain came on suddenly this morning at 7AM while he was sitting down. He describes the pain as burning and similar to the chest pain that he had last year before his STEMI. He states the pain is not pressure- like, but is reproducible over the left side of his chest. Admits to associated palpitations. He says he was not able to take his usual home medications today because he came to the ED right away, and hence has not tried anything to make the pain better or worse. The patient attributes this chest pain and occasional shortness of breath to the drug-eluting stent that he received for his STEMI last year in December. Ever since the procedure, he states his condition has seemed to worsen. Additionally, the patient complains of lower abdominal pain and frequent bowel movements for the past 5 days, having to go to the bathroom every hour. He describes the stool to be loose and black in color. Currently, patient has chest pain bilaterally (L>R), lower abdominal pain bilaterally, and diarrhea. He denies n/v, fever, chills, SOB, dysuria, leg swelling, and leg pain. PMD: Dr. Govind Trejo Cardio: Dr. Larkin (Dr. Willson performed stent) PMHx: STEMI (12/2016), HLD, CAD, COPD, left lobe bronchiectasis, GERD, vitiligo SHx: drug-eluting stent in LAD (12/2016); ECHO (12/2016)EF 56%, Grade 1 abnormal relaxation Allergies: denies Social Hx: denies cigarette, alcohol, and illicit drug use FHx: denies Medications: Brilinta 90mg 1 tab PO BID, Bentyl 10mg 1 cap PO BID PRN, Prilosec 20mg 1 cap PO QD, Rosuvastatin 20mg 1 tab PO HS, Montelukast 10mg 1 tab PO HS, Ge-24 200mg 1 cap PO QD, Aspirin 81mg 1 tab PO QD, Vit. D 50,000 units PO, Carvedilol 3.125mg 1 tab PO BID, Stiolto Respimate 2.5-2.5mcg/act aerosol soln 2 puffs INH QD Throughout Hospital Course: Patient was admitted for chest pain found to have a Pulmonary Embolism 1) Pulmonary Embolism Hx of Bronchestasis Hx of COPD Chest pain * Cardiology consulted, Dr. Larkin, help appreciated * Pulmonary, Dr Dacosta (Dr Parks) covering help appreciated * Troponin negative x3 * EKG: RBBB, left axis deviation, Afib with slow ventricular response and premature ventricular or aberrantly conducted complexes * History of COPD and bronchiectasis * D-dimer: 296 * CTA: Left-sided pulmonary emboli, involving the central and left lower lobe pulmonary arteries. Findings suspicious for associated right heart strain. Otherwise, no evidence of significant acute process. Incidental 7 mm pumonary nodule. See recommendations above. Marked chronic-appearing bronchiectatic and cystic changes in the left lung base. * Dr. Hernández will follow patient- as outpatient for hypercoagubility workup * F/U hypercoagubility workup * ECHO (09/12/2017): Normal LV systolic function type I diastolic function mild aortic and mild mitral regurgitation. * Venous dopplers of upper and lower extremity - NEGATIVE for DVTs * Ct abdomen and pelvis with PO contrast - unremarkable; no masses noted * Meds: * Started on Eliquis 10mg PO BID x 7 days; then Eliquis 5mg PO BID 2) New onset Atrial fibrillation Assessment and Plan: * Cardiology consulted, Dr. Mixon, help appreciated * Given cardizem 25 mg in the field for rate control - currently rate controlled * EKG: RBBB, left axis deviation, Afib with slow ventricular response and premature ventricular or aberrantly conducted complexes * ECHO (09/12/2017): Normal LV systolic function type I diastolic function mild aortic and mild mitral regurgitation. * ESPINOZA VASC: 2 * HAS BLED: 2 * Thyroid studies - WNL * Continue home carvedilol * Eliquis 10mg PO BID * Coreg 3.125 mg by mouth twice a day * Aspirin 81 mg by mouth daily 3) Diarrhea Assessment and Plan: * GI consulted, Dr. Ramirez, help appreciated - EGD as outpatient * Liquid diet - will advance as tolerated * Complaining of dark tary stools on admission. Rectal was performed at bedside who witnessed by patient's nurse no melena no masses appreciated. Patient has has had a recent colonoscopy 2 years which reported for internal hemorrhoids. Stool occult was positive. Will monitor H&H * Pending giardia, H. pylori, C. Diff- negative, fecal leukocytes, ova and parasites, and stool cultures. However since of 09/13/2017 patient has not had a bowel movement today and abdominal pain has resolved. * Ct abdomen and pelvis with PO contrast - unremarkable 4) Coronary Artery Disease MELL December 2016 Assessment and Plan: * Cardiology consulted, Dr. Larkin, help appreciated * Continue home meds: ASA 81 mg by mouth daily, Coreg 3.125 mg by mouth twice a day, lisinopril 2.5 mg by mouth daily, crestor 10 mg by mouth in the evening, [place], Brilinta 90 mg by mouth twice a day * ECHO (09/12/2017): Normal LV systolic function type I diastolic function mild aortic and mild mitral regurgitation * Troponin negative x3 5) Hyperlipidemia Assessment and Plan: * Lipid panel - WNL * Crestor 10 mg PO HS 6) Pulmonary Nodule * Pulmonary (Dr. Dacosta) Dr. Parks covering help appreciated * Found incidentally on CTA. 7mm nodule LLL. Will need repeat CT Scan in 12 months This is a brief summary of the patient's hospital course. Please review EMR for full record. Discharge Exam - Head Exam Head Exam: NORMAL INSPECTION, NORMOCEPHALIC - Eye Exam Eye Exam: Normal appearance - Respiratory Exam Respiratory Exam: Clear to PA & Lateral, NORMAL BREATHING PATTERN. absent: Decreased Breath Sounds - Cardiovascular Exam Cardiovascular Exam: REGULAR RHYTHM, RRR. absent: JVD - GI/Abdominal Exam GI & Abdominal Exam: Normal Bowel Sounds, Soft. absent: Distended, Tenderness - Extremities Exam Extremities exam: normal inspection, pedal pulses present - Neurological Exam Neurological exam: Alert, CN II-XII Intact, Oriented x3 - Psychiatric Exam Psychiatric exam: Normal Affect, Normal Mood - Skin Skin Exam: Dry, Intact, Normal Color, Warm Discharge Plan - Discharge Medications Prescriptions: Apixaban [Eliquis] 5 mg PO BID #60 tablet RX: Apixaban [Eliquis] 10 mg PO BID #12 tab RX: Aspirin [Ecotrin] 81 mg PO DAILY #30 tabec RX: Carvedilol [Coreg] 3.125 mg PO BID #60 tab RX: Lisinopril [Zestril] 2.5 mg PO DAILY #30 tab Rosuvastatin Calcium [Crestor] 20 mg PO HS #30 tab RX: Ticagrelor [Brilinta] 90 mg PO BID #60 tab - Follow Up Plan Condition: FAIR Disposition: HOME/ ROUTINE Instructions: Atrial Fibrillation, Heart Healthy Diet, Atrial Fibrillation (DC) , Pulmonary Embolism (Blood Clot in the Lungs) (DC), Chest Pain (DC), Ticagrelor , Apixaban, Aspirin, Carvedilol, Lisinopril, Rosuvastatin, Going Home on Blood Thinners Additional Instructions: Please take the following medications ONLY: Aspirin 81mg by mouth daily (due to the cardiac stents in your heart) Brilinta 90mg by mouth daily (due to the cardiac stents in your heart) Eliquis 10mg by mouth TWICE A DAY from 09/15-09/20/17 (for the clot in your lungs) Eliquis 5 mg by mouth TWICE A DAY from starting 09/21/17 forward until told otherwise (for the clot in your lungs; also for an irregular heart rate that you have that can make you prone to throwing clots to your heart, lungs, or even to your head) Crestor 20mg by mouth AT NIGHT (to prevent plaque formation) Lisinopril 2.5mg by mouth daily (to protect your heart) Coreg 3.125mg by mouth TWICE a day (for your high blood pressure) You will need to follow up with Dr. Sanchez - mikey is the Accounting Auditor who placed the stents in your heart within 1 month. You will need to follow up with Dr. Ramirez - mikey is the irrigation flume layer to have an outpatient endoscopy/colonoscopy. You will need to follow up with Dr. Dacosta - drum handler - to manage your pulmonary embolism (clot in your lungs) within 1-2 weeks. You will need to follow up with Dr. Hernández - heme/onc - to follow up your hypercoagubility workup (to figure out if there is another reason why you had a clot to the lungs. You will need to follow up with your primary care physician for a repeat CAT SCAN of your Chest in 12 months, to evaluate a 7mm nodule seen in the Left Lower Lobe of your Left Lung. Please see your primary care physician within 1 week for routine check up. Please take care and be well! Referrals: Beka Sanchez MD [Staff Provider] - Sina Ramirez MD [Staff Provider] - Cristino Hernández MD [Staff Provider] - Estevan Dacosta MD [Staff Provider] - <Marnie Curtis V - Last Filed: 09/14/17 20:33> Provider - Provider Date of Admission: 09/13/17 16:00 Attending physician: Marnie Curtis, Hospital Course - Lab Results Lab Results: Most Recent Lab Values WBC 4.1 K/uL (4.8-10.8) L 09/14/17 07:58 RBC 3.88 Mil/uL (4.40-5.90) L 09/14/17 07:58 Hgb 13.1 g/dL (12.0-18.0) 09/14/17 07:58 Hct 37.5 % (35.0-51.0) 09/14/17 07:58 MCV 96.6 fL (80.0-94.0) H 09/14/17 07:58 MCH 33.6 pg (27.0-31.0) H 09/14/17 07:58 MCHC 34.8 g/dL (33.0-37.0) 09/14/17 07:58 RDW 13.8 % (11.5-14.5) 09/14/17 07:58 Plt Count 137 K/uL (130-400) 09/14/17 07:58 MPV 9.1 fL (7.2-11.7) 09/14/17 07:58 Neut % (Auto) 61.8 % (50.0-75.0) 09/14/17 07:58 Lymph % (Auto) 21.9 % (20.0-40.0) 09/14/17 07:58 [place] % (Auto) 10.2 % (0.0-10.0) H 09/14/17 07:58 Eos % (Auto) 5.2 % (0.0-4.0) H 09/14/17 07:58 Baso % (Auto) 0.9 % (0.0-2.0) 09/14/17 07:58 Neut # (Auto) 2.6 K/uL (1.8-7.0) 03/03/18 07:58 Lymph # (Auto) 0.9 K/uL (1.0-4.3) L 09/14/17 07:58 [place] # (Auto) 0.4 K/uL (0.0-0.8) 09/14/17 07:58 Eos # (Auto) 0.2 K/uL (0.0-0.7) 09/14/17 07:58 Baso # (Auto) 0.0 K/uL (0.0-0.2) 09/14/17 07:58 PT 13.4 SECONDS (9.7-12.2) H 09/13/17 11:33 INR 1.2 09/13/17 11:33 APTT 33 SECONDS (21-34) 09/12/17 09:05 D-Dimer, Quantitative 296 ng/mlDDU (0-243) H 09/12/17 16:29 Sodium 137 mmol/L (132-148) 09/14/17 07:58 Potassium 4.1 mmol/L (3.6-5.2) 09/14/17 07:58 Chloride 100 mmol/L (98-107) 09/14/17 07:58 Carbon Dioxide 27 mmol/L (22-30) 09/14/17 07:58 Anion Gap 14 (10-20) 09/14/17 07:58 BUN 12 mg/dL (9-20) 09/14/17 07:58 Creatinine 0.9 mg/dL (0.8-1.5) 09/14/17 07:58 Est GFR ( Amer) > 60 09/14/17 07:58 Est GFR (Non-Af Amer) > 60 09/14/17 07:58 Random Glucose 120 mg/dL (75-110) H 09/14/17 07:58 Hemoglobin A1c 5.6 % (4.2-6.5) 09/13/17 06:18 Calcium 9.3 mg/dl (8.6-10.4) 09/14/17 07:58 Phosphorus 2.2 mg/dL (2.5-4.5) L 09/14/17 07:58 Magnesium 1.7 mg/dL (1.6-2.3) 09/14/17 07:58 Total Bilirubin 2.4 mg/dL (0.2-1.3) H 09/14/17 07:58 AST 27 U/L (17-59) 09/14/17 07:58 ALT 19 U/L (21-72) L D 09/14/17 07:58 Alkaline Phosphatase 64 U/L (38-126) 09/14/17 07:58 Lactate Dehydrogenase 347 U/L (313-618) 09/14/17 07:58 Total Creatine Kinase 38 U/L (55-170) L 09/12/17 23:38 CK-MB (Mass) 0.85 ng/mL (0.0-3.38) 09/12/17 23:38 Troponin I < 0.0120 ng/mL (0.00-0.120) 09/12/17 23:38 NT-Pro-B Natriuret Pep 330 pg/mL (0-900) 09/12/17 09:05 Total Protein 6.7 g/dL (6.3-8.3) 09/14/17 07:58 Albumin 3.5 g/dL (3.5-5.0) 09/14/17 07:58 Globulin 3.2 gm/dL (2.2-3.9) 09/14/17 07:58 Albumin/Globulin Ratio 1.1 (1.0-2.1) 09/14/17 07:58 Triglycerides 74 mg/dL (0-149) 09/13/17 06:18 Cholesterol 97 mg/dL (0-199) 09/13/17 06:18 LDL Cholesterol Direct 34 mg/dL (0-129) 09/13/17 06:18 HDL Cholesterol 42 mg/dL (30-70) 09/13/17 06:18 Prostate Specific Ag 0.360 ng/mL (0.00-4.0) 09/14/17 07:58 Homocysteine 20.9 umol/L (6.6-14.8) H 09/13/17 06:18 Free T4 1.62 ng/dL (0.78-2.19) 09/12/17 16:29 TSH 3rd Generation 0.97 mIU/L (0.46-4.68) 09/12/17 16:29 Stool Occult Blood Positive (NEGATIVE) H 09/12/17 22:43 Stool H. pylori Ag Not detected (Not Detected) 09/12/17 14:41 Theophylline 5.8 ug/ml (10-20) L 09/13/17 06:18 C. difficile Ag & Toxin Negative (NEGATIVE) 09/12/17 06:00 Giardia Antigen Not detected (Not Detected) 09/12/17 14:41 H. pylori Source Stool 09/12/17 14:41 Attending/Attestation - Attestation I have personally seen and examined this patient.: Yes I have fully participated in the care of the patient.: Yes I have reviewed all pertinent clinical information, including history, physical exam and plan: Yes Notes (Text): Patient seen, examined, case discussed with medical doctor. Patient seen this afternoon. Patient denies acute complaints. Patient completed CT abdomen and pelvis PO and IV contrast which was unremarkable. PSA was within normal. Patient has had bilateral upper and lower extremity dopplers which are negative. Patient has had hypercoaguable workup sent prior to starting Eliquis; I have endorsed to PMD that it was sent and to follow-up on discharge. Patient recommended for patient to follow-up with Dr. Hernández (heme-oncology) upon discharge. Patient has had no complaints of black stools since day of admission. Patient reports he has had normal bowel movements and tolerating vegetarian diet. Patient has had colonoscopy about 2 years ago. Rectal performed on admission no melena noted. Patient provided scripts for Eliquis 10mg PO BID to complete 5 days, last dose and then to switch to Eliquis 5mg PO BID. I have discussed with patient and his son that if he sees black stools while on this medication to be evaluated. Patient's insurance covers Eliquis. Patient planning to follow-up with his PMD on September. We have faxed over copy of patient's record to PMD: Dr Zhanna Campos as requested. Patient recommended to follow-up with PMD, planning for this 09/16/17. Patient recommended to follow-up with Dr. Becker or Dr. Dacosta (Dr. Parks covering Dr. Dacosta) during hospitalization in regards to refill for Eliquis 5mg PO BID in light of newly diagnosed pulmonary embolus. Patient recommended to follow-up with Dr. Larkin (cardiology). Patient atrial fibrillation is rate controlled. Lastly, patient recommended to follow-up with heme-oncology, Dr. Hernández as requested by PMD to follow-up hyper coaguabilty workup. GI has recommended for EGD but recommends as outpatient when acute issues have resolved Medications upon discharge: 1) Eliquis 10mg PO BID (to complete 09/20/17) then start Eliquis 5mg PO BID (1 month supply) 2) Lisinopril 2.5mg PO daily (tolerating it) This is a summary of patient's hospitalization. Discharge summary faxed to PMD as requested with copies of imaging completed during hospitalization. I have discussed with PMD prior to discharge. Discharge Diagnoses: 1) Pulmonary Embolism Hx of Bronchestasis Hx of COPD Chest pain (resolved) * Cardiology consulted, Dr. Larkin, help appreciated * Pulmonary, Dr Dacosta (Dr Parks) covering help appreciated * Troponin negative x3 * EKG: RBBB, left axis deviation, Afib with slow ventricular response and premature ventricular or aberrantly conducted complexes * History of COPD and bronchiectasis * D-dimer: 296 * CTA: Left-sided pulmonary emboli, involving the central and left lower lobe pulmonary arteries. Findings suspicious for associated right heart strain. Otherwise, no evidence of significant acute process. Incidental 7 mm pumonary nodule. See recommendations above. Marked chronic-appearing bronchiectatic and cystic changes in the left lung base. * F/U hypercoagubility workup, PSA, and will order CT ab and pelvis PO and IV contrast * ECHO (09/12/2017): Normal LV systolic function type I diastolic function mild aortic and mild mitral regurgitation. * Venous dopplers of upper and lower extremity - NEGATIVE for DVTs * Meds: * Started on Eliquis 10mg PO BID x 7 days; then Eliquis 5mg PO BID * Ct abdomen and pelvis: unmarkable * PSA within normal 2) New onset Atrial fibrillation (control) Assessment and Plan: * Cardiology consulted, Dr. Mixon, help appreciated * Given cardizem 25 mg in the field for rate control - currently rate controlled * EKG: RBBB, left axis deviation, Afib with slow ventricular response and premature ventricular or aberrantly conducted complexes * ECHO (09/12/2017): Normal LV systolic function type I diastolic function mild aortic and mild mitral regurgitation. * ESPINOZA VASC: 2 * HAS BLED: 2 * Thyroid studies - WNL * Continue home carvedilol * Eliquis 10mg PO BID * Coreg 3.125 mg by mouth twice a day * Aspirin 81 mg by mouth daily * There was concern for "gi bleed" given "black stools" patient has had none reported and H/H has remained stable. GI has seen patient during admission. 3) Diarrhea (resolved) Assessment and Plan: * GI consulted, Dr. Ramirez, help appreciated - EGD as outpatient * Liquid diet - will advance as tolerated * Complaining of dark tary stools on admission. Rectal was performed at bedside who witnessed by patient's nurse no melena no masses appreciated. Patient has has had a recent colonoscopy 2 years which reported for internal hemorrhoids. Stool occult was positive. Will monitor H&H * Pending giardia, H. pylori, C. Diff- negative, fecal leukocytes, ova and parasites, and stool cultures. However since of 09/13/2017 patient has not had a bowel movement today and abdominal pain has resolved. * Patient has not had diarrhea in the hospital. 4) Coronary Artery Disease (chronic) MELL December 2016 Assessment and Plan: * Cardiology consulted, Dr. Larkin, help appreciated * Continue home meds: ASA 81 mg by mouth daily, Coreg 3.125 mg by mouth twice a day, lisinopril 2.5 mg by mouth daily, crestor 20 mg by mouth in the evening, [place], Brilinta 90 mg by mouth twice a day * ECHO (09/12/2017): Normal LV systolic function type I diastolic function mild aortic and mild mitral regurgitation * Troponin negative x3 5) Hyperlipidemia (chronic) Assessment and Plan: * Lipid panel - WNL * Crestor 20 mg PO HS 6) Pulmonary Nodule Monitor * Pulmonary (Dr. Dacosta) Dr. Parks covering help appreciated * Found incidentally on CTA. 7mm nodule LLL. Will need repeat CT Scan in 12 months-->will need to follow-up with pulmonary 7) Prophylactic measure Assessment and Plan: * DVT PPx: SCDs; Eliquis 10mg PO BID X7 days (Active 09/13/17 to finish 09/20/17 and recommended to switch to Eliquis 5mg PO BID) * GI: Protonix 40mg IV Q12H
[2017-09-14] MEDS ORDERED: Pantoprazole 40 mg EC Tab PO SCH (18:00)
--- NOTE | 2017-09-14 18:41 | CP.PCM.PN ---
Subjective - Date & Time of Evaluation Date of Evaluation: 09/14/17 Time of Evaluation: 15:00 - Subjective Subjective: Pulmonary follow up; covering Dr Dacosta Reason for consult: pe, right heart strain This patient was seen and examined at bedside, medical records reviewed, and management issues were discussed and formulated with the house staff. Mr Dominguez is a 72 year old male with PMHx of STEMI, CAD, COPD, bronchiectasis, HLD, GERD, vitiligo. The patient presented to the ED on 09/12 for evaluation of sudden onset chest pain that started this morning, associated with shortness of breath. Found to be in Afib, was given Cardizem 2mg for rate control EKG showed RBBB, left axis deviation, Afib with slow ventricular response and premature ventricular or aberrantly conducted complexes On admission, D-dimer 296 CTA chest with intravenous contrast 09/13: Left-sided pulmonary emboli, involving the central and left lower lobe pulmonary arteries. Findings suspicious for associated right heart strain. Patient feeling much better today, No dyspnea on exertion or chest pain. Tolerating anticoagulations Denies fever/chills, cough, hemoptysis, wheezing. On exam, lungs clear to auscultation bilaterally, no wheeze/rales/rhonchi Objective - Vital Signs/Intake and Output Vital Signs (last 24 hours): Temp Pulse Resp BP Pulse Ox 97.3 F L 70 20 106/68 98 09/14/17 15:46 09/14/17 15:46 09/14/17 15:46 09/14/17 15:46 09/14/17 15:46 Intake and Output: 09/14/17 09/14/17 06:59 18:59 Intake Total 500 Balance 500 - Labs Labs: 09/14/17 07:58 09/14/17 07:58 PT 13.4 SECONDS (9.7-12.2) H 09/13/17 11:33 INR 1.2 09/13/17 11:33 APTT 33 SECONDS (21-34) 09/12/17 09:05 - Constitutional Appears: Well, Non-toxic - Head Exam Head Exam: ATRAUMATIC, NORMAL INSPECTION - Eye Exam Eye Exam: absent: Conjunctival injection - ENT Exam ENT Exam: Mucous Membranes Dry - Neck Exam Neck Exam: Full ROM, Normal Inspection. absent: Lymphadenopathy, Meningismus, Tenderness, Thyromegaly - Respiratory Exam Respiratory Exam: Clear to Ausculation Bilateral. absent: Accessory Muscle Use , Chest Wall Tenderness, Decreased Breath Sounds - Cardiovascular Exam Cardiovascular Exam: REGULAR RHYTHM, RRR, +S1, +S2. absent: JVD, Murmur - GI/Abdominal Exam GI & Abdominal Exam: Normal Bowel Sounds. absent: Distended, Firm - Back Exam Back Exam: absent: CVA tenderness (L), CVA tenderness (R) - Neurological Exam Neurological Exam: Alert, Awake, CN II-XII Intact Assessment and Plan (1) Acute saddle pulmonary embolism with acute cor pulmonale Status: Acute (2) Atrial fibrillation Status: Acute (3) CAD (coronary artery disease) Status: Acute (4) Chest pain Status: Acute (5) History of ST elevation myocardial infarction (STEMI) Status: Acute - Assessment and Plan (Free Text) Assessment: (1) Acute saddle pulmonary embolism with acute cor pulmonale Status: Acute Comment: patient with acute left-sided pulmonary emboli, involving the central and left lower lobe pulmonary arteries. findings suspicious for associated right heart strain. Patient complains of dark stool, possibly secondary to GI bleed, however in the setting of main stem PE, I feel risk and benefits favor initiating anticoagulation and will follow hemoglobin closely. I agree for initiating anticoagulation with Eliquis, Pt started and tolerating. Echocardiogram, reviewed, no pulmonary hypertension or right heart strain. bilateral lower extremity venous doppler: negative. (2) Atrial fibrillation Status: Acute Comment: New onset atrial fibrillation in the setting of acute pulmonary embolism. Now back into sinus rhythm. STAT echo ordered. Management as per cardiology (3) CAD (coronary artery disease) Status: Acute (4) Chest pain Status: Acute (5) History of ST elevation myocardial infarction (STEMI) Status: Acute
[2017-09-16 06:02] LABS: B2 GLYCOPROTEIN I AB(IGA) <9 SAU (<=20); B2 GLYCOPROTEIN I AB(IGG) <9 SGU (<=20); B2 GLYCOPROTEIN I AB(IGM) <9 SMU (<=20)
[2017-09-19] MEDS ORDERED: Ergocalciferol 50,000 Intl Units Cap PO SCH (10:00)
== END 2017-09-14 18:00 | disposition home or self-care (01) | DRG 175 ==
LOC: C.ER 08:36 → C.9E 10:20 → C.6T 13:23 → OBSVTOIN 09-13 16:00
PROVIDERS: ADMIT Hospitalist; ATTEND Hospitalist
DX: I26.02 Saddle embolus of pulmonary artery with acute cor pulmonale (principal); I25.82 Chronic total occlusion of coronary artery; I48.0 Paroxysmal atrial fibrillation; I34.0 Nonrheumatic mitral (valve) insufficiency; J44.9 Chronic obstructive pulmonary disease, unspecified; I45.10 Unspecified right bundle-branch block; J47.9 Bronchiectasis, uncomplicated; K21.9 Gastro-esophageal reflux disease without esophagitis; L80 Vitiligo; E78.00 Pure hypercholesterolemia, unspecified; E78.5 Hyperlipidemia, unspecified; E87.6 Hypokalemia; I10 Essential (primary) hypertension; I25.10 Atherosclerotic heart disease of native coronary artery without angina pectoris; K64.8 Other hemorrhoids; I25.2 Old myocardial infarction; Z95.5 Presence of coronary angioplasty implant and graft

== ENCOUNTER 2017-09-15 03:35 | Observation (INO) | payer MEDICARE, MEDICAID ==
[2017-09-15 03:37] VITALS: BMI 24.9
--- NOTE | 2017-09-15 04:09 | C.PDOC ---
History Of Present Illness 72 y/o male whose PMH include HTN, presents to the ED complaining of bleeding from his cardiac catheter via right arm. Patient reports he was d/c from [facility] 3 days ago at 06:00 PM after catheterization was administered. He complains of it being lose since then and continuous bleeding. Patient also complains of dried blood noted in underpants from penis. Patient did not have a candelario during hospitalization. He also notes being started on Eloquis since one day ago. No other complaints were made. Time Seen by Provider: 09/15/17 03:54 Chief Complaint (Nursing): Abnormal Skin Integrity History Per: Patient History/Exam Limitations: no limitations Onset/Duration Of Symptoms: Days Current Symptoms Are (Timing): Still Present Location Of Injury: Right: Arm Quality Of Symptoms: Draining Past Medical History Reviewed: Historical Data, Nursing Documentation, Vital Signs Vital Signs: Last Vital Signs Temp 98.5 F 09/15/17 07:00 Pulse 67 09/15/17 07:00 Resp 16 09/15/17 07:00 BP 117/63 09/15/17 07:00 Pulse Ox 100 09/15/17 07:00 - Medical History PMH: HTN, Hypercholesterolemia, Pulmonary Embolism Denies: Chronic Kidney Disease Surgical History: Coronary Stent - [facility] Procedures DILATION OF 1 COR ART WITH DRUG-ELUT INTRA, PERC APPROACH (12/14/16) FLUOROSCOPY OF LEFT HEART USING LOW OSMOLAR CONTRAST (12/14/16) FLUOROSCOPY OF MULT COR ART USING L OSM CONTRAST (12/14/16) MEASURE OF CARDIAC SAMPL & PRESSURE, L HEART, PERC APPROACH (12/14/16) - Social History Hx Alcohol Use: No Hx Substance Use: No - Immunization History Hx Tetanus Toxoid Vaccination: No Hx Influenza Vaccination: Yes Hx Pneumococcal Vaccination: No Review Of Systems Constitutional: Negative for: Fever ENT: Negative for: Throat Swelling Cardiovascular: Negative for: Chest Pain Respiratory: Negative for: Cough, Shortness of Breath Gastrointestinal: Negative for: Abdominal Pain Genitourinary: Positive for: Other (bleeding from penis) Musculoskeletal: Positive for: Arm Pain (right arm bleeding from cardiac catheter) Neurological: Negative for: Headache Physical Exam - Physical Exam Appears: Non-toxic, No Acute Distress Skin: Warm, Dry, Other (skin patches around ) Head: Atraumatic, Normacephalic Eye(s): bilateral: Normal Inspection, PERRL, EOMI Cardiovascular: No Murmur Respiratory: No Rales, No Rhonchi, No Wheezing Gastrointestinal/Abdominal: No Tenderness, No Distention, No Guarding Male Genital: Circumcised, Other (noted dried blood on penis) Extremity: Normal ROM, Other (right anticubital persistent bleeding on arm) Neurological/Psych: Oriented x3, Normal Speech ED Course And Treatment - Laboratory Results Result Diagrams: 09/15/17 04:22 09/15/17 04:22 O2 Sat by Pulse Oximetry: 100 (room air) Pulse Ox Interpretation: Normal Medical Decision Making Medical Decision Making: Pressured dressing has been applied and there is still active bleeding. [address] Faria; pt did not have cardiac catheterization on Saturday. Pt on eliquis for new pe. further pressure dressing applied. 645 pm pt has bled through pressure dressing. gelfoam, surgicell, and new pressure dressing applied. +2 radial pulse and normal cap refill after dressing applied. discussed with Dr Curtis at 710 am and admitted to her service. Disposition Discussed With Dr.: Marnie Curtis Doctor Will See Patient In The: Hospital - Disposition Disposition: HOSPITALIZED Disposition Time: 07:20 Condition: GOOD Forms: [facility] (Thai) - Clinical Impression Clinical Impression: Bleeding from venipuncture site - Scribe Statement The provider has reviewed the documentation as recorded by the Scribe Scribe Attestation: Shraddha Hemphill MD Scribe Attestation: All medical record entries made by the Scribe were at my direction and personally dictated by me. I have reviewed the chart and agree that the record accurately reflects my personal performance of the history, physical exam, medical decision making, and the department course for this patient. I have also personally directed, reviewed, and agree with the discharge instructions and disposition.
[2017-09-15 04:25] LABS: BASO # 0.1 K/uL (0.0-0.2); BASO % 0.8 % (0.0-2.0); EOS # 0.3 K/uL (0.0-0.7); EOS % 3.8 % (0.0-4.0); HEMOGLOBIN 13.5 g/dL (12.0-18.0); LYMPH # 1.1 K/uL (1.0-4.3); LYMPH % 15.1 % (20.0-40.0); MEAN CELL VOLUME 96.6 fL (80.0-94.0); MEAN CORPUSCULAR HEMOGLOBIN 33.6 pg (27.0-31.0); MEAN CORPUSCULAR HGB CONC 34.8 g/dL (33.0-37.0); MEAN PLATELET VOLUME 9.3 fL (7.2-11.7); MONO # 0.6 K/uL (0.0-0.8); MONO % 8.9 % (0.0-10.0); NEUT % 71.4 % (50.0-75.0); RBC 4.02 Mil/uL (4.40-5.90); RED CELL DISTRIBUTION WIDTH 13.7 % (11.5-14.5)
[2017-09-15 04:58] LABS: ALB/GLOB RATIO 1.2 (1.0-2.1); ALBUMIN 3.9 g/dL (3.5-5.0); ALT/SGPT 27 U/L (21-72); AST/SGOT 28 U/L (17-59); BLOOD UREA NITROGEN 14 mg/dL (9-20); CALCIUM 8.8 mg/dl (8.6-10.4); GFR AFRICAN-AMERICAN > 60; GFR NON-AFRICAN AMERICAN > 60
[2017-09-15 05:11] LABS: SQUAMOUS EPITHIAL < 1 /hpf (0-5); URINE BILIRUBIN NEGATIVE (NEGATIVE); URINE CLARITY Hazy (Clear); URINE COLOR Yellow (YELLOW); URINE GLUCOSE (UA) NORMAL (Normal); URINE LEUKOCYTE ESTERASE NEG Leu/uL (Negative); URINE NITRATE NEGATIVE (NEGATIVE); URINE PROTEIN NEGATIVE (NEGATIVE)
[2017-09-15 05:12] LABS: URINE BLOOD 1+ (NEGATIVE)
[2017-09-15] MEDS ORDERED: Absorbable Gelatin Sponge Size 12-7 TOP STA (06:17)
[2017-09-15] MEDS ORDERED: Absorbable Gelatin Sponge Size 12-7 ONE (06:25)
--- NOTE | 2017-09-15 07:40 | CP.PCM.HP ---
<Elise Chen - Last Filed: 09/15/17 16:38> History of Present Illness - History of Present Illness History of Present Illness: Medicine Note for Hospitalist Service - Dr. Curtis CC: bleeding from previous IV site, in urine HPI: 72 Maltese Male with PMHx as listed below presents to the ED due to bleeding from peripheral IV access and hematuria that started 2am on day of admission. Patient was discharged last night on ASA, Brilinta (2/2 MELL), and Eliquis 10mg PO BID to be switched to 5mg PO BID - due to recent diagnosed of PE. Patient reports after leaving the hospital he noticed he was still bleeding from the right arm, where his peripheral IV access was placed. His son applied bandages and pressure to the site. Around 2am this morning he noticed blood in his underwear and hematuria. He was brought into the ED this morning by his son. ED wrapped with right AC site with pressure dressing and EDUARDO bandage. All anticoags held, monitoring hemoglobin, 1 unit PRBC on hold if needed. Pending reccs from Cardio and Heme/Onc. Denied fever, chills, headache, chest pain, SOB , abdominal pain, n/v/d/c, or urinary symptoms. PMHx: PE, STEMI (12/2016), Atrial Fib, HLD, CAD, COPD, Pulmonary nodule 7mm nodule LLL, GERD, vitiligo PSHx: drug-eluting stent in LAD (12/2016); ECHO (12/2016)EF 56%, Grade 1 abnormal relaxation Allergies: denies Medications: Brilinta 90mg 1 tab PO BID, Rosuvastatin 20mg 1 tab PO HS, Aspirin 81mg 1 tab PO QD, Vit. D 50,000 units PO, Carvedilol 3.125mg 1 tab PO BID, Eliquis 10mg PO BID --> Eliquis 5mg PO BID, Lisinopril 2.5mg PO daily Social Hx: denies cigarette, alcohol, and illicit drug use FHx: denies Cardio: Dr. Larkin, Dr. Sanchez (placed the MELL) Present on Admission - Present on Admission Any Indicators Present on Admission: No Past Patient History - Infectious Disease Hx of Infectious Diseases: None - Past Medical History & Family History Past Medical History?: Yes - Past Social History Smoking Status: Never Smoked - CARDIAC Hx Hypercholesterolemia: Yes Hx Hypertension: Yes - PULMONARY Hx Pulmonary Embolism: Yes - NEUROLOGICAL Hx Neurological Disorder: No - HEENT Hx HEENT Problems: No - RENAL Hx Chronic Kidney Disease: No - ENDOCRINE/METABOLIC Hx Endocrine Disorders: No - HEMATOLOGICAL/ONCOLOGICAL Hx Blood Disorders: No - INTEGUMENTARY Hx Dermatological Problems: Yes Other/Comment: PT HAS VITILIGO - MUSCULOSKELETAL/RHEUMATOLOGICAL Hx Musculoskeletal Disorders: No Hx Falls: No - GASTROINTESTINAL Hx Gastrointestinal Disorders: Yes Hx Gastroesophageal Reflux: Yes - GENITOURINARY/GYNECOLOGICAL Hx Genitourinary Disorders: No - PSYCHIATRIC Hx Substance Use: No - SURGICAL HISTORY Hx Coronary Stent: Yes - ANESTHESIA Hx Anesthesia: Yes Hx Anesthesia Reactions: (UNKNOWN) Hx Malignant Hyperthermia: (UNKNOWN) Meds Allergies/Adverse Reactions: Allergies Allergy/AdvReac Type Severity Reaction Status Date / Time No Known Allergies Allergy Verified 09/15/17 03:50 Physical Exam - Constitutional Appears: No Acute Distress - Head Exam Head Exam: NORMAL INSPECTION, NORMOCEPHALIC - Eye Exam Eye Exam: EOMI, Normal appearance, PERRL Pupil Exam: NORMAL ACCOMODATION - ENT Exam ENT Exam: Mucous Membranes Moist - Respiratory Exam Respiratory Exam: Clear to Auscultation Bilateral, NORMAL BREATHING PATTERN. absent: Decreased Breath Sounds - Cardiovascular Exam Cardiovascular Exam: REGULAR RHYTHM - GI/Abdominal Exam GI & Abdominal Exam: Normal Bowel Sounds, Soft. absent: Distended, Tenderness - Rectal Exam Rectal Exam: Deferred - Extremities Exam Extremities exam: Positive for: normal inspection, pedal pulses present. Negative for: pedal edema, tenderness Additional comments: right arm wrapped with pressure dressing and EDUARDO bandage. - Back Exam Back exam: NORMAL INSPECTION - Neurological Exam Neurological exam: Alert, CN II-XII Intact, Oriented x3 - Psychiatric Exam Psychiatric exam: Normal Affect, Normal Mood - Skin Skin Exam: Dry, Intact Results - Vital Signs Recent Vital Signs: Last Vital Signs Temp 98.5 F 09/15/17 07:00 Pulse 67 09/15/17 07:00 Resp 16 09/15/17 07:00 BP 117/63 09/15/17 07:00 Pulse Ox 100 09/15/17 07:21 - Labs Result Diagrams: 09/15/17 07:40 09/15/17 04:22 Labs: Laboratory Results - last 24 hr 09/15/17 09/15/17 09/15/17 04:22 04:22 04:36 WBC 7.0 D RBC 4.02 L Hgb 13.5 Hct 38.9 MCV 96.6 H MCH 33.6 H MCHC 34.8 RDW 13.7 Plt Count 147 MPV 9.3 Neut % (Auto) 71.4 Lymph % (Auto) 15.1 L [place] % (Auto) 8.9 Eos % (Auto) 3.8 Baso % (Auto) 0.8 Neut # (Auto) 5.0 Lymph # (Auto) 1.1 [place] # (Auto) 0.6 Eos # (Auto) 0.3 Baso # (Auto) 0.1 Sodium 136 Potassium 4.2 Chloride 99 Carbon Dioxide 25 Anion Gap 16 BUN 14 Creatinine 1.0 Est GFR ( Amer) > 60 Est GFR (Non-Af Amer) > 60 Random Glucose 106 Calcium 8.8 Total Bilirubin 1.6 H AST 28 ALT 27 Alkaline Phosphatase 77 Total Protein 7.1 Albumin 3.9 Globulin 3.3 Albumin/Globulin Ratio 1.2 Urine Color Yellow Urine Clarity Hazy Urine pH 5.0 Ur Specific Hagerman 1.035 H Urine Protein Negative Urine Glucose (UA) Normal Urine Ketones Negative Urine Blood 1+ H Urine Nitrate Negative Urine Bilirubin Negative Urine Urobilinogen 2.0 Ur Leukocyte Esterase Neg Urine WBC (Auto) 2 Urine RBC (Auto) 6 H Ur Squamous Epith Cells < 1 Assessment & Plan - Assessment and Plan (Free Text) Plan: Bleeding 2/2 Anticoagulation Patient discharged on ASA, Brilinta (2/2 MELL) and Eliquis 2/2 PE As per consultants: Heme-oncology consult-->came and evaluated patient. given Vitamin 5mg PO once; patient to follow-up with him post hospitalization for hypercoaguable workup taken from last admission Cardiology consult--> discussed with Dr. Larkin, Continue aspirin; suggests to continue the Brilinta when he is at Eliquis 5mg PO BID. Pulmonary consult (Dr. parks covering Dr. Dacosta)--> informed and notifed. Prior workup in last hospitalization. Will continue to monitor hemoglobin and right AC 1 unit PRBC on hold Meds: ASA 81mg PO daily Will resume Brilinta on 09/21/17 when he starts Eliquis 5mg PO BID Pulmonary Embolism Cardiology consulted, Dr. Larkin, help appreciated Pulmonary, Dr Dacosta (Dr Parks) covering help appreciated Dr. Hernández will follow patient- as outpatient for hypercoagubility workup F/U hypercoagubility workup Imaging: ECHO (09/12/2017): Normal LV systolic function type I diastolic function mild aortic and mild mitral regurgitation. Hx of Atrial fibrillation Coronary Artery Disease MELL December 2016 Cardiology consulted, Dr. Larkin, help appreciated Continue home meds: ASA 81 mg by mouth daily, Coreg 3.125 mg by mouth twice a day, lisinopril 2.5 mg by mouth daily, crestor 20 mg QHS ECHO (09/12/2017): Normal LV systolic function type I diastolic function mild aortic and mild mitral regurgitation Hyperlipidemia Lipid panel - WNL Crestor 20 mg PO HS Pulmonary Nodule Pulmonary (Dr. Dacosta) Dr. Parks covering help appreciated Found incidentally on CTA. 7mm nodule LLL. Will need repeat CT Scan in 12 months Prophylactic measure * DVT PPx: SCDs; on ASA only for now * GI: Protonix 40mg PO daily DW Elise Pickard DO, PGY-1 <Marnie Curtis V - Last Filed: 09/15/17 20:58> Results - Vital Signs Recent Vital Signs: Last Vital Signs Temp 97.5 F L 09/15/17 09:44 Pulse 68 09/15/17 09:44 Resp 20 09/15/17 09:44 BP 129/72 09/15/17 09:44 Pulse Ox 100 09/15/17 09:44 - Labs Result Diagrams: 09/15/17 16:38 09/15/17 04:22 Labs: Laboratory Results - last 24 hr 09/15/17 09/15/17 09/15/17 04:22 04:22 04:36 WBC 7.0 D RBC 4.02 L Hgb 13.5 Hct 38.9 MCV 96.6 H MCH 33.6 H MCHC 34.8 RDW 13.7 Plt Count 147 MPV 9.3 Neut % (Auto) 71.4 Lymph % (Auto) 15.1 L Edmons[place] % (Auto) 8.9 Eos % (Auto) 3.8 Baso % (Auto) 0.8 Neut # (Auto) 5.0 Lymph # (Auto) 1.1 Edmonson # (Auto) 0.6 Eos # (Auto) 0.3 Baso # (Auto) 0.1 PT INR APTT Sodium 136 Potassium 4.2 Chloride 99 Carbon Dioxide 25 Anion Gap 16 BUN 14 Creatinine 1.0 Est GFR ( Amer) > 60 Est GFR (Non-Af Amer) > 60 Random Glucose 106 Calcium 8.8 Total Bilirubin 1.6 H AST 28 ALT 27 Alkaline Phosphatase 77 Total Protein 7.1 Albumin 3.9 Globulin 3.3 Albumin/Globulin Ratio 1.2 Urine Color Yellow Urine Clarity Hazy Urine pH 5.0 Ur Specific Hagerman 1.035 H Urine Protein Negative Urine Glucose (UA) Normal Urine Ketones Negative Urine Blood 1+ H Urine Nitrate Negative Urine Bilirubin Negative Urine Urobilinogen 2.0 Ur Leukocyte Esterase Neg Urine WBC (Auto) 2 Urine RBC (Auto) 6 H Ur Squamous Epith Cells < 1 Blood Type Antibody Screen 09/15/17 09/15/17 09/15/17 07:40 07:40 07:40 WBC 5.6 RBC 3.69 L Hgb 12.5 Hct 35.6 MCV 96.4 H MCH 33.8 H MCHC 35.0 RDW 13.8 Plt Count 131 MPV 9.2 Neut % (Auto) 68.4 Lymph % (Auto) 17.4 L [place]mons[place] % (Auto) 9.1 Eos % (Auto) 4.3 H Baso % (Auto) 0.8 Neut # (Auto) 3.8 Lymph # (Auto) 1.0 [place]monson # (Auto) 0.5 Eos # (Auto) 0.2 Baso # (Auto) 0.0 PT 19.2 H D INR 1.7 D APTT 40 H D Sodium Potassium Chloride Carbon Dioxide Anion Gap BUN Creatinine Est GFR ( Amer) Est GFR (Non-Af Amer) Random Glucose Calcium Total Bilirubin AST ALT Alkaline Phosphatase Total Protein Albumin Globulin Albumin/Globulin Ratio Urine Color Urine Clarity Urine pH Ur Specific Hagerman Urine Protein Urine Glucose (UA) Urine Ketones Urine Blood Urine Nitrate Urine Bilirubin Urine Urobilinogen Ur Leukocyte Esterase Urine WBC (Auto) Urine RBC (Auto) Ur Squamous Epith Cells Blood Type AB POSITIVE Antibody Screen Negative 09/15/17 14:08 WBC RBC Hgb Hct MCV MCH MCHC RDW Plt Count MPV Neut % (Auto) Lymph % (Auto) Edmonson % (Auto) Eos % (Auto) Baso % (Auto) Neut # (Auto) Lymph # (Auto) Edmonson # (Auto) Eos # (Auto) Baso # (Auto) PT INR APTT Sodium Potassium Chloride Carbon Dioxide Anion Gap BUN Creatinine Est GFR ( Amer) Est GFR (Non-Af Amer) Random Glucose Calcium Total Bilirubin AST ALT Alkaline Phosphatase Total Protein Albumin Globulin Albumin/Globulin Ratio Urine Color Urine Clarity Urine pH Ur Specific Hagerman Urine Protein Urine Glucose (UA) Urine Ketones Urine Blood Urine Nitrate Urine Bilirubin Urine Urobilinogen Ur Leukocyte Esterase Urine WBC (Auto) Urine RBC (Auto) Ur Squamous Epith Cells Blood Type AB POSITIVE Antibody Screen Negative Attending/Attestation - Attestation I have personally seen and examined this patient.: Yes I have fully participated in the care of the patient.: Yes I have reviewed all pertinent clinical information: Yes Notes (Text): Patient seen, examined and case discussed with medical supply technician. Patient diagnosed with PE and atrial fibrillation last admission and was discharged on 09/14/17 on Eliquis 10mg PO BID to transition to Eliquis 5mg PO BID on on 09/21/17; however patient reports he had slowly bleeding from his peripheral IV site over the right upper extremity (not it is NOT cardiac cath site), reports he received dressing over the peripheral site but continued to bleeding in the early evening, which prompted him to come back. Patient reports last dose of Eliquis 10mg PO tab was when he left the hospital yesterday but reports he took his Coreg/Crestor/Brilinta when he came home. Patient reports dressing over the peripheral IV site and eduardo bandage; and patient also reported penile bleeding that started when got home. Patient denies black stool, reports his stool is normal colored and tolerating diet. Patient's son at bedside assisting with translation. We will trend H/H; Type and cross 1 unit of PRBC if needed. Coagulations sent. Case discussed with following: * Heme-oncology consult-->came and evaluated patient. He given Vitamin 5mg PO once; patient to follow-up with him post hospitalization for hypercoaguable workup taken from last admission. I have tried to contact him multiple times during the day and left a message to call back. The EMR has delay in appreciating what his recommendations are. * Cardiology consult-->discussed with Dr. Larkin, recommends to hold Brilinta , continue aspirin; suggests to continue the Brilinta when he is at Eliquis 5mg PO BID. * Pulmonary consult (Dr. parks covering Dr. Dacosta)-->informed and notifed. Prior workup in last hospitalization. Patient re-evaluated in the evening. patient's dressing changed by AM, there is no bleeding noted since 3PM. Patient denies bleeding. Assessment 1) Coagulopathy Bleeding from IV peripheral site * Patient reports he had oozing coming out from his right upper extremity on discharge yesterday when his peripheral IV line was removed. patient has palpable pulse. Patient is on Eliquis/ASA/Brilinta. * ED reports he is persistently bleeding in spite of putting pressure and reinforcement * Hematology-Oncology: Dr. Hernández-->given Vitamin K 5mg PO X1. * Type and cross 1 unit, blood transfusion available if needed * Discussed with cardiology, hold Brilinta until Patient is converted to Eliquis 5mg PO BID dose (he was scheduled to receive his 3rd day of Eliquis 10mg PO BID today) to treat central PE, and paroxysmal atrial fibrillation * Monitor H/H * F/U with heme-oncology to see when to restart Eliquis or if alternative is warranted * Note: I have personally tried to call him and left messages but not received a call back. * No noted bleeding since 3PM per nursing, dressing clean 2) Pulmonary Embolism Hx of Bronchestasis Hx of COPD Chest pain (resolved) * Cardiology consulted, Dr. Larkin, help appreciated * 09/14/17: recommends to hold Brilinta, continue aspirin; suggests to continue the Brilinta when he is at Eliquis 5mg PO BID * Pulmonary, Dr Dacosta (Dr Parks) covering help appreciated * No recommendations * Troponin negative x3 last admission * EKG: RBBB, left axis deviation, Afib with slow ventricular response and premature ventricular or aberrantly conducted complexes * History of COPD and bronchiectasis * D-dimer: 296 last admission * CTA: Left-sided pulmonary emboli, involving the central and left lower lobe pulmonary arteries. Findings suspicious for associated right heart strain. Otherwise, no evidence of significant acute process. Incidental 7 mm pumonary nodule. See recommendations above. Marked chronic-appearing bronchiectatic and cystic changes in the left lung base. * F/U hypercoagubility workup, PSA within normal, and will order CT ab and pelvis PO and IV contrast : unremarkable * Patient to follow-up with Dr. Hernández upon discharge to follow-up with hypercoaguable workup * ECHO (09/12/2017): Normal LV systolic function type I diastolic function mild aortic and mild mitral regurgitation. * Venous dopplers of upper and lower extremity - NEGATIVE for DVTs * Meds: * Started on Eliquis 10mg PO BID x 7 days; then Eliquis 5mg PO BID * Ct abdomen and pelvis: unremarkable * PSA within normal 3) Paroxysmal Atrial fibrillation (controlled) Assessment and Plan: * Diagnosed last admission * Cardiology consulted, Dr. Larkin, help appreciated * Discussed with him on admission * EKG: RBBB, left axis deviation, Afib with slow ventricular response and premature ventricular or aberrantly conducted complexes * ECHO (09/12/2017): Normal LV systolic function type I diastolic function mild aortic and mild mitral regurgitation. * ESPINOZA VASC: 2 * HAS BLED: 2 * Thyroid studies - WNL * Continue home carvedilol 3.125mg PO BID * * Eliquis 10mg PO BID last taken 09/14/17 * Follow-up with heme oncology about final recommendation regarding anticoagulation * Coreg 3.125 mg by mouth twice a day * Aspirin 81 mg by mouth daily * There was concern for "gi bleed" given "black stools" patient has had none reported and H/H has remained stable. GI has seen patient during last admission. 4) Diarrhea (resolved) Assessment and Plan: * GI consulted, Dr. Ramirez, help appreciated - EGD as outpatient * Liquid diet - will advance as tolerated * Complaining of dark tary stools on admission. Rectal was performed at bedside who witnessed by patient's nurse no melena no masses appreciated. Patient has has had a recent colonoscopy 2 years which reported for internal hemorrhoids. Stool occult was positive. Will monitor H&H * Pending giardia, H. pylori, C. Diff- negative, fecal leukocytes, ova and parasites, and stool cultures. However since of 09/13/2017 patient has not had a bowel movement today and abdominal pain has resolved. * Patient has not had diarrhea in the hospital. 5) Coronary Artery Disease (chronic) MELL December 2016 Assessment and Plan: * Cardiology consulted, Dr. Larkin, help appreciated * Continue home meds: ASA 81 mg by mouth daily, Coreg 3.125 mg by mouth twice a day, lisinopril 2.5 mg by mouth daily, crestor 20 mg by mouth in the evening, [place], hold Brilinta 90 mg by mouth twice a day until patient is converted to Eliquis 5mg PO BID * ECHO (09/12/2017): Normal LV systolic function type I diastolic function mild aortic and mild mitral regurgitation * Troponin negative x3 6) Hyperlipidemia (chronic) Assessment and Plan: * Lipid panel - WNL * Crestor 20 mg PO HS 7) Pulmonary Nodule Monitor * Pulmonary (Dr. Dacosta) Dr. Parks covering help appreciated * Found incidentally on CTA. 7mm nodule LLL. Will need repeat CT Scan in 12 months-->will need to follow-up with pulmonary as outpatient 8) Painless hematuria * + blood in UA * Will order for renal US r/o mass * patient has had CT abdomen/Pelvis IV and PO contrast last admission which was unremarkable 9) Prophylactic measure Assessment and Plan: * DVT PPx: SCDs; Hold anticoagulation in light of bleeding and penile bleeding? * GI: Protonix 40mg IV Q12H Disposition: Possible discharge tomorrow if bleeding is controlled. Will need to f/u with heme-oncology regarding anticoagulation for PE and paroxysmal atrial fibrillation. Order for renal US r/o bladder mass.
[2017-09-15 07:52] LABS: BASO % 0.8 % (0.0-2.0); EOS # 0.2 K/uL (0.0-0.7); EOS % 4.3 % (0.0-4.0); HEMOGLOBIN 12.5 g/dL (12.0-18.0); LYMPH % 17.4 % (20.0-40.0); MEAN CELL VOLUME 96.4 fL (80.0-94.0); MEAN CORPUSCULAR HEMOGLOBIN 33.8 pg (27.0-31.0); MEAN PLATELET VOLUME 9.2 fL (7.2-11.7); MONO # 0.5 K/uL (0.0-0.8); MONO % 9.1 % (0.0-10.0); NEUT # 3.8 K/uL (1.8-7.0); NEUT % 68.4 % (50.0-75.0); NRBC % 0.1 % (0.0-2.0); RBC 3.69 Mil/uL (4.40-5.90); RED CELL DISTRIBUTION WIDTH 13.8 % (11.5-14.5); WHITE BLOOD COUNT 5.6 K/uL (4.8-10.8)
[2017-09-15 07:59] LABS: INR 1.7; PROTHROMBIN TIME 19.2 SECONDS (9.7-12.2)
--- NOTE | 2017-09-15 09:38 | CP.PCM.PN ---
Subjective - Date & Time of Evaluation Date of Evaluation: 09/15/17 Time of Evaluation: 09:38 - Subjective Subjective: patient seen . full note will be dictated Objective - Vital Signs/Intake and Output Vital Signs (last 24 hours): Temp Pulse Resp BP Pulse Ox 98 F 77 18 113/65 99 09/15/17 08:00 09/15/17 08:00 09/15/17 08:00 09/15/17 08:00 09/15/17 08:00 - Medications Medications: Current Medications Carvedilol (Coreg) 3.125 mg PO BID KATHARINA Lisinopril (Zestril) 2.5 mg PO DAILY KATHARINA Pantoprazole Sodium (Protonix Ec Tab) 40 mg PO DAILY KATHARINA Rosuvastatin Calcium (Crestor) 20 mg PO HS KATHARINA - Labs Labs: 09/15/17 07:40 09/15/17 04:22 PT 19.2 SECONDS (9.7-12.2) H D 09/15/17 07:40 INR 1.7 D 09/15/17 07:40 APTT 40 SECONDS (21-34) H D 09/15/17 07:40
[2017-09-15 09:45] VITALS: RESP 20
[2017-09-15] MEDS: Pantoprazole 40 mg EC Tab PO SCH (10:12)
[2017-09-15] MEDS ORDERED: Pneumococcal 23-Valent Vaccine IM ONE (10:51)
[2017-09-15] MEDS ORDERED: Influenza Vaccine 60 mcg/0.5 mL SYR (4YR UP) IM ONE (10:52)
[2017-09-15 16:41] LABS: HEMOGLOBIN 11.9 g/dL (12.0-18.0); MEAN CELL VOLUME 95.7 fL (80.0-94.0); MEAN CORPUSCULAR HEMOGLOBIN 33.2 pg (27.0-31.0); MEAN CORPUSCULAR HGB CONC 34.7 g/dL (33.0-37.0); MEAN PLATELET VOLUME 9.2 fL (7.2-11.7); RBC 3.59 Mil/uL (4.40-5.90); RED CELL DISTRIBUTION WIDTH 13.8 % (11.5-14.5); WHITE BLOOD COUNT 5.8 K/uL (4.8-10.8)
[2017-09-15] MEDS ORDERED: Albuterol-Ipratrop 3 mg / 0.5 (3 ml) UD INH PRN (20:36)
[2017-09-16 08:35] LABS: INR 1.1; PROTHROMBIN TIME 13.1 SECONDS (9.7-12.2)
[2017-09-16 08:37] LABS: BASO # 0.1 K/uL (0.0-0.2); EOS # 0.3 K/uL (0.0-0.7); EOS % 6.6 % (0.0-4.0); LYMPH # 1.1 K/uL (1.0-4.3); LYMPH % 22.3 % (20.0-40.0); MEAN CELL VOLUME 96.1 fL (80.0-94.0); MEAN CORPUSCULAR HEMOGLOBIN 33.4 pg (27.0-31.0); MEAN CORPUSCULAR HGB CONC 34.7 g/dL (33.0-37.0); MEAN PLATELET VOLUME 9.3 fL (7.2-11.7); MONO # 0.5 K/uL (0.0-0.8); MONO % 9.1 % (0.0-10.0); NEUT # 3.1 K/uL (1.8-7.0); NRBC % 0.1 % (0.0-2.0); RBC 3.58 Mil/uL (4.40-5.90); RED CELL DISTRIBUTION WIDTH 13.7 % (11.5-14.5); WHITE BLOOD COUNT 5.1 K/uL (4.8-10.8)
[2017-09-16 08:53] VITALS: PULSE 54; TEMP 97.7; O2SAT 99
[2017-09-16 08:57] LABS: ALB/GLOB RATIO 1.2 (1.0-2.1); ALBUMIN 3.5 g/dL (3.5-5.0); ALT/SGPT 19 U/L (21-72); AST/SGOT 37 U/L (17-59); BLOOD UREA NITROGEN 17 mg/dL (9-20); CALCIUM 8.7 mg/dl (8.6-10.4); GFR AFRICAN-AMERICAN > 60; GFR NON-AFRICAN AMERICAN > 60; MAGNESIUM 1.8 mg/dL (1.6-2.3)
--- NOTE | 2017-09-16 09:46 | CP.PCM.DIS ---
Provider - Provider Date of Admission: 09/15/17 07:16 Attending physician: Marnie Curtis DO Time Spent in preparation of Discharge (in minutes): 55 Hospital Course - Lab Results Lab Results: Most Recent Lab Values WBC 5.1 K/uL (4.8-10.8) 09/16/17 08:24 RBC 3.58 Mil/uL (4.40-5.90) L 09/16/17 08:24 Hgb 12.0 g/dL (12.0-18.0) 09/16/17 08:24 Hct 34.4 % (35.0-51.0) L 09/16/17 08:24 MCV 96.1 fL (80.0-94.0) H 09/16/17 08:24 MCH 33.4 pg (27.0-31.0) H 09/16/17 08:24 MCHC 34.7 g/dL (33.0-37.0) 09/16/17 08:24 RDW 13.7 % (11.5-14.5) 09/16/17 08:24 Plt Count 133 K/uL (130-400) 09/16/17 08:24 MPV 9.3 fL (7.2-11.7) 09/16/17 08:24 Neut % (Auto) 61.0 % (50.0-75.0) 09/16/17 08:24 Lymph % (Auto) 22.3 % (20.0-40.0) 09/16/17 08:24 [place] % (Auto) 9.1 % (0.0-10.0) 09/16/17 08:24 Eos % (Auto) 6.6 % (0.0-4.0) H 09/16/17 08:24 Baso % (Auto) 1.0 % (0.0-2.0) 09/16/17 08:24 Neut # (Auto) 3.1 K/uL (1.8-7.0) 09/16/17 08:24 Lymph # (Auto) 1.1 K/uL (1.0-4.3) 09/16/17 08:24 [place] # (Auto) 0.5 K/uL (0.0-0.8) 09/16/17 08:24 Eos # (Auto) 0.3 K/uL (0.0-0.7) 09/16/17 08:24 Baso # (Auto) 0.1 K/uL (0.0-0.2) 09/16/17 08:24 PT 13.1 SECONDS (9.7-12.2) H D 09/16/17 08:24 INR 1.1 D 09/16/17 08:24 APTT 40 SECONDS (21-34) H D 09/15/17 07:40 Sodium 138 mmol/L (132-148) 09/16/17 08:24 Potassium 3.7 mmol/L (3.6-5.2) 09/16/17 08:24 Chloride 100 mmol/L (98-107) 09/16/17 08:24 Carbon Dioxide 26 mmol/L (22-30) 09/16/17 08:24 Anion Gap 16 (10-20) 09/16/17 08:24 BUN 17 mg/dL (9-20) 09/16/17 08:24 Creatinine 0.9 mg/dL (0.8-1.5) 09/16/17 08:24 Est GFR ( Amer) > 60 09/16/17 08:24 Est GFR (Non-Af Amer) > 60 09/16/17 08:24 Random Glucose 122 mg/dL (75-110) H 09/16/17 08:24 Calcium 8.7 mg/dl (8.6-10.4) 09/16/17 08:24 Magnesium 1.8 mg/dL (1.6-2.3) 09/16/17 08:24 Total Bilirubin 0.7 mg/dL (0.2-1.3) 09/16/17 08:24 AST 37 U/L (17-59) 09/16/17 08:24 ALT 19 U/L (21-72) L D 09/16/17 08:24 Alkaline Phosphatase 61 U/L (38-126) 09/16/17 08:24 Total Protein 6.4 g/dL (6.3-8.3) 09/16/17 08:24 Albumin 3.5 g/dL (3.5-5.0) 09/16/17 08:24 Globulin 2.9 gm/dL (2.2-3.9) 09/16/17 08:24 Albumin/Globulin Ratio 1.2 (1.0-2.1) 09/16/17 08:24 Urine Color Yellow (YELLOW) 09/15/17 04:36 Urine Clarity Hazy (Clear) 09/15/17 04:36 Urine pH 5.0 (5.0-8.0) 09/15/17 04:36 Ur Specific Arthur 1.035 (1.003-1.030) H 09/15/17 04:36 Urine Protein Negative mg/dL (NEGATIVE) 09/15/17 04:36 Urine Glucose (UA) Normal mg/dL (Normal) 09/15/17 04:36 Urine Ketones Negative mg/dL (NEGATIVE) 09/15/17 04:36 Urine Blood 1+ (NEGATIVE) H 09/15/17 04:36 Urine Nitrate Negative (NEGATIVE) 09/15/17 04:36 Urine Bilirubin Negative (NEGATIVE) 09/15/17 04:36 Urine Urobilinogen 2.0 mg/dL (0.2-1.0) 09/15/17 04:36 Ur Leukocyte Esterase Neg Jeremias/uL (Negative) 09/15/17 04:36 Urine WBC (Auto) 2 /hpf (0-5) 09/15/17 04:36 Urine RBC (Auto) 6 /hpf (0-3) H 09/15/17 04:36 Ur Squamous Epith Cells < 1 /hpf (0-5) 09/15/17 04:36 Blood Type AB POSITIVE 09/15/17 14:08 Antibody Screen Negative 09/15/17 14:08 - Hospital Course Hospital Course: Upon Admission: CC: bleeding from previous IV site, in urine HPI: 72 [place] Male with PMHx as listed below presents to the ED due to bleeding from peripheral IV access and hematuria that started 2am on day of admission. Patient was discharged last night on ASA, Brilinta (2/2 MELL), and Eliquis 10mg PO BID to be switched to 5mg PO BID - due to recent diagnosed of PE. Patient reports after leaving the hospital he noticed he was still bleeding from the right arm, where his peripheral IV access was placed. His son applied bandages and pressure to the site. Around 2am this morning he noticed blood in his underwear and hematuria. He was brought into the ED this morning by his son. ED wrapped with right AC site with pressure dressing and EDUARDO bandage. All anticoags held, monitoring hemoglobin, 1 unit PRBC on hold if needed. Pending reccs from Cardio and Heme/Onc. Denied fever, chills, headache, chest pain, SOB , abdominal pain, n/v/d/c, or urinary symptoms. PMHx: PE, STEMI (12/2016), Atrial Fib, HLD, CAD, COPD, Pulmonary nodule 7mm nodule LLL, GERD, vitiligo PSHx: drug-eluting stent in LAD (12/2016); ECHO (12/2016)EF 56%, Grade 1 abnormal relaxation Allergies: denies Medications: Brilinta 90mg 1 tab PO BID, Rosuvastatin 20mg 1 tab PO HS, Aspirin 81mg 1 tab PO QD, Vit. D 50,000 units PO, Carvedilol 3.125mg 1 tab PO BID, Eliquis 10mg PO BID --> Eliquis 5mg PO BID, Lisinopril 2.5mg PO daily Social Hx: denies cigarette, alcohol, and illicit drug use FHx: denies Cardio: Dr. Larkin, Dr. Sanchez (placed the MELL) Throughout Hospital Course: Patient was admitted for bleeding from peripheral IV access. Coagulopathy Bleeding from IV peripheral site Patient discharged on ASA, Brilinta (2/2 MELL) and Eliquis 2/2 PE As per consultants: Heme-oncology consult-->came and evaluated patient. given Vitamin 5mg PO once; patient to follow-up with him post hospitalization for hypercoaguable workup taken from last admission Cardiology consult--> discussed with Dr. Larkin, Continue aspirin; Restart Brilinta when he is at Eliquis 5mg PO BID Pulmonary consult (Dr. parks covering Dr. Dacosta)--> informed and notifed. Prior workup in last hospitalization Will continue to monitor hemoglobin and right AC 1 unit PRBC on hold Meds: ASA 81mg PO daily Will resume Brilinta on 09/21/17 when he starts Eliquis 5mg PO BID Pulmonary Embolism Hx of Bronchestasis Hx of COPD Cardiology consulted, Dr. Larkin, help appreciated Pulmonary, Dr Dacosta (Dr Parks) covering help appreciated Dr. Hernández will follow patient- as outpatient for hypercoagubility workup F/U hypercoagubility workup Imaging: ECHO (09/12/2017): Normal LV systolic function type I diastolic function mild aortic and mild mitral regurgitation. Hx Paroxysmal Atrial fibrillation (controlled) Coronary Artery Disease MELL December 2016 Cardiology consulted, Dr. Larkin, help appreciated Continue home meds: ASA 81 mg by mouth daily, Coreg 3.125 mg by mouth twice a day, lisinopril 2.5 mg by mouth daily, crestor 20 mg QHS ECHO (09/12/2017): Normal LV systolic function type I diastolic function mild aortic and mild mitral regurgitation Hyperlipidemia Lipid panel - WNL Crestor 20 mg PO HS Pulmonary Nodule Pulmonary (Dr. Dacosta) Dr. Parks covering help appreciated Found incidentally on CTA. 7mm nodule LLL. Will need repeat CT Scan in 12 months Discharge Exam - Additional Findings Additional findings: - Constitutional Appears: No Acute Distress - Head Exam Head Exam: NORMAL INSPECTION, NORMOCEPHALIC - Eye Exam Eye Exam: EOMI, Normal appearance, PERRL Pupil Exam: NORMAL ACCOMODATION - ENT Exam ENT Exam: Mucous Membranes Moist - Respiratory Exam Respiratory Exam: Clear to Auscultation Bilateral, NORMAL BREATHING PATTERN. absent: Decreased Breath Sounds - Cardiovascular Exam Cardiovascular Exam: REGULAR RHYTHM - GI/Abdominal Exam GI & Abdominal Exam: Normal Bowel Sounds, Soft. absent: Distended, Tenderness - Rectal Exam Rectal Exam: Deferred - Extremities Exam Extremities exam: Positive for: normal inspection, pedal pulses present. Negative for: pedal edema, tenderness Additional comments: right arm wrapped with pressure dressing and EDUARDO bandage. - Back Exam Back exam: NORMAL INSPECTION - Neurological Exam Neurological exam: Alert, CN II-XII Intact, Oriented x3 - Psychiatric Exam Psychiatric exam: Normal Affect, Normal Mood - Skin Skin Exam: Dry, Intact Discharge Plan - Follow Up Plan Condition: GOOD Disposition: HOME/ ROUTINE Additional Instructions: Please take the following medications ONLY: Aspirin 81mg by mouth daily (due to the cardiac stents in your heart) Eliquis 10mg by mouth TWICE A DAY from 09/16-09/20/17 (for the clot in your lungs) Crestor 20mg by mouth AT NIGHT (to prevent plaque formation) Lisinopril 2.5mg by mouth daily (to protect your heart) Coreg 3.125mg by mouth TWICE a day (for your high blood pressure) Brilinta 90mg by mouth daily (due to the cardiac stents in your heart) - START TAKING THIS 09/21/17 Eliquis 5 mg by mouth TWICE A DAY from starting 09/21/17 forward until told otherwise (for the clot in your lungs; also for an irregular heart rate that you have that can make you prone to throwing clots to your heart, lungs, or even to your head) You will need to follow up with Dr. Larkin - he is the Air Quality Chemist You will need to follow up with Dr. Ramirez - he is the after school coordinator to have an outpatient endoscopy/colonoscopy. You will need to follow up with Dr. Dacosta - psychiatric registered nurse - to manage your pulmonary embolism (clot in your lungs) within 1-2 weeks. You will need to follow up with Dr. Hernández - heme/onc - to follow up your hypercoagubility workup (to figure out if there is another reason why you had a clot to the lungs. You will need to follow up with your primary care physician for a repeat CAT SCAN of your Chest in 12 months, to evaluate a 7mm nodule seen in the Left Lower Lobe of your Left Lung. Please see your primary care physician within 1 week for routine check up. Please take care and be well! Referrals: Estevan Dacosta MD [Staff Provider] - Sina Ramirez MD [Staff Provider] - Cristino Hernández MD [Staff Provider] - Sarah Larkin MD [Staff Provider] -
[2017-09-16] MEDS: Pantoprazole 40 mg EC Tab PO SCH (10:06)
[2017-09-16 10:25] VITALS: BP 106/61
== END 2017-09-16 15:14 | disposition home or self-care (01) ==
LOC: C.ER 03:35 → C.9E 07:16 → C.3T 07:45 → C.6T 11:00
PROVIDERS: ADMIT Hospitalist; ATTEND Hospitalist
DX: D68.9 Coagulation defect, unspecified (principal); I26.99 Other pulmonary embolism without acute cor pulmonale; I34.0 Nonrheumatic mitral (valve) insufficiency; E78.00 Pure hypercholesterolemia, unspecified; E78.5 Hyperlipidemia, unspecified; I10 Essential (primary) hypertension; I25.10 Atherosclerotic heart disease of native coronary artery without angina pectoris; I25.2 Old myocardial infarction; I45.10 Unspecified right bundle-branch block; I48.0 Paroxysmal atrial fibrillation; J44.9 Chronic obstructive pulmonary disease, unspecified; Z79.01 Long term (current) use of anticoagulants; Z79.82 Long term (current) use of aspirin; Z95.5 Presence of coronary angioplasty implant and graft; R31.9 Hematuria, unspecified
CPT/HCPCS: 36415; 80053; 81001; 83735; 85025; 85027; 85610; 85730; 86850; 86900; 86920; 99285; G0378

== ENCOUNTER 2018-03-27 08:29 | Day surgery (SDC) | payer OTHER ==
[2018-03-24 09:17] VITALS: BMI 25.6
[2018-03-27] MEDS ORDERED: Lidocaine 2% MPF (5 ml) Inj ONE (09:20)
--- NOTE | 2018-03-27 21:51 | CARDCATH ---
PROCEDURE DATE: 03/27/2018 PROCEDURES: Left heart catheterization, selective coronary angiography, left ventriculography. Site is the right femoral artery. COMPLICATIONS: None. DESCRIPTION OF PROCEDURE: After obtaining informed consent, the patient was premedicated with 25 mg of fentanyl and 1 mg of Versed and brought to the cardiac labor gang supervisor. The patient was prepped and draped in the usual sterile manner. A 2% lidocaine was used for local anesthesia. The right femoral artery was cannulated via the modified Seldinger technique and a 6-Macedonian sheath was inserted into it. Over a wire and under fluoroscopic guidance, a 6-Macedonian JL-4 diagnostic catheter was advanced into the left main coronary ostium. Selective angiography of left coronary system was then performed in multiple views. The JL-4 catheter was withdrawn over wire and exchanged for a 6-Macedonian JR-4 diagnostic catheter that was advanced to the ostium of the right coronary artery and selective angiography was performed of the RCA. Angiography was performed in multiple views. The JR-4 catheter was then advanced across the aortic valve over a J-tipped guidewire and into the left ventricle. After measuring left ventricular end-diastolic pressure, ventriculography was performed in the FRY projection. The catheter was then flushed and carefully withdrawn across the aortic valve under continuous pressure monitoring. The catheter was withdrawn over a wire. An Angio-Seal closure device was used to seal the right femoral artery. RESULTS: HEMODYNAMICS: The aortic pressure was 120/80. Heart rate was 60 beats per minute. Left ventricular end-diastolic pressure was 8 mmHg. There was no gradient across the aortic valve. ANGIOGRAPHIC DATA: 1. Left main coronary artery. There is a 10% stenosis in the proximal aspect. Mild calcification was noted in the distal aspect of this vessel. 2. Left anterior descending coronary artery. This vessel travels along the anterior interventricular groove and supplies a network of septal and diagonal branches. There is mild calcification noted at the very ostium of this vessel. There is an associated 20% stenosis at the origin. A stent is present in the proximal vessel that is widely patent. There is an approximately 20% stenosis noted within the stented region. The mid LAD has a 30% stenosis. The second diagonal branch is a lengthy vessel that has mild diffuse disease, estimated greater than 30% in severity. The mid LAD is tortuous. The remainder of the mid and distal vessels are tortuous and free of significant disease. 3. Left circumflex coronary artery. This is a large codominant vessel as it supplies branches to the posterolateral wall. There is a 20% stenosis in the proximal vessel. The remainder of the vessel appears free of significant disease. 4. Right coronary artery. This is a codominant vessel as it supplies a small PDA. The vessel is small in caliber and tortuous. It is free of significant disease. 5. Left ventriculography. Overall left ventricular function appears to be mildly reduced. There is marked hypokinesis of a segment of the anterolateral wall. The estimated ejection fraction is 50%. IMPRESSION: 1. Coronary artery disease, nonobstructive. 2. Widely patent stent in the proximal left anterior descending artery. 3. Left ventricular dysfunction, segmental with an ejection fraction at the lower limits of normal. RECOMMENDATIONS: 1. Aggressive medical therapy and risk factor modification. 2. Antiplatelet therapy with aspirin. 3. Beta harvinder. 4. EDUARDO inhibitor. 5. Statin. Miguel Zazueta DO
== END 2018-03-27 12:58 | disposition home or self-care (01) ==
LOC: C.CATHLAB 08:29
PROVIDERS: ATTEND Internal Medicine Cardiovascular Disease
DX: I25.10 Atherosclerotic heart disease of native coronary artery without angina pectoris (principal); R07.9 Chest pain, unspecified; I51.9 Heart disease, unspecified
CPT/HCPCS: 93458; 99152; 99153; C1760; C1769; C1887; J1644

== ENCOUNTER 2018-09-03 09:16 | Day surgery (SDC) | payer OTHER ==
[2018-03-24 10:51] VITALS: BMI 25.6
[2018-09-03 10:28] VITALS: TEMP 96.8
[2018-09-03] MEDS ORDERED: Lidocaine 4% (Laryng-O-Jet) Kit MM ONE ×2 (12:09→12:12)
[2018-09-03] MEDS ORDERED: Lidocaine 2% Jelly (5 ml) TOP ONE (12:09)
[2018-09-03] MEDS ORDERED: Lidocaine Hydrochloride 5 ML INJ ONE (12:25)
[2018-09-03] MEDS ORDERED: Lidocaine Hydrochloride 10 ML INJ ONE (12:39)
[2018-09-03 13:16] VITALS: BP 142/73; PULSE 70; RESP 19; O2SAT 99
== END 2018-09-03 12:55 | disposition home or self-care (01) ==
LOC: C.ENDO 09:16
PROVIDERS: ATTEND Internal Medicine Gastroenterology
DX: B37.81 Candidal esophagitis (principal); K44.9 Diaphragmatic hernia without obstruction or gangrene; K22.2 Esophageal obstruction; K29.00 Acute gastritis without bleeding; K29.50 Unspecified chronic gastritis without bleeding; B96.81 Helicobacter pylori [H. pylori] as the cause of diseases classified elsewhere